=== PATIENT | female | born 1950 | race Two or more races ===

== ENCOUNTER 2017-09-08 05:08 | Inpatient (IN) | payer BC, MEDICARE ==
[2017-09-08] MEDS ORDERED: NITROGLYCERIN/D5W 50 MG/250 ML RTUINJ IV PRN ×2 (05:37→08:43)
[2017-09-08] MEDS ORDERED: ASPIRIN 81 MG TABLET, CHEWABLE PO ONE (05:39)
--- NOTE | 2017-09-08 05:41 | ER Document Report ---
Doctor's Note Notes: 09/08/17 05:39 I performed a quick triage evaluation of the patient. Patient is a 67-year-old female presents with complaint of exertional dyspnea for 2-3 weeks. She says it is worse when she is at work and move around. She says at times she does have some associated chest pain. Tonight her breathing got worse and occurred even without exertion therefore she came to the ER. She denies any chest pain at this time but says she did have some earlier tonight. No fevers. No vomiting. No diarrhea. She does have history of coronary disease and had bypass surgery in [place] last year. She is followed by Dr. Johnston locally. EKG obtained does not show any ST segment elevation or depression. There is some baseline wander. CA interval, QRS duration, QTc intervals are within normal range. Old EKG for comparison orders from December 09, 2015. On exam patient is slightly diaphoretic. She is not in any significant distress. She is not tachypneic. Her lung douglass are clear except for maybe some rales in the bases. She does not have any significant edema to extremities. Heart sound is clear without murmur. Due to patient's high blood pressure as well as some rales in the bases of started on a nitro drip. She may have some pulmonary vascular congestion and nitro should help with both that and her blood pressure. I have ordered cardiac workup including cardiac enzymes and BNP as well as chest x-ray. Patient was placed on environmental monitoring specialist. Dictation of this chart was performed using voice recognition software; therefore, there may be some unintended grammatical errors.
[2017-09-08 05:54] LABS: ABSOLUTE BASOPHILS # (AUTO) 0.1 10^3/uL (0.0-0.2); ABSOLUTE EOSINOPHILS # (AUTO) 0.5 10^3/uL (0.0-0.6); ABSOLUTE MONOCYTES (AUTO) 0.6 10^3/uL (0.1-1.4); ABSOLUTE NEUT (AUTO) 8.4 10^3/uL (1.7-8.2); EOSINOPHILS % (AUTO) 4.3 % (0-6); HEMATOCRIT 44.5 % (36.0-47.0); HEMOGLOBIN 14.2 g/dL (12.0-15.5); LYMPHOCYTES % (AUTO) 17.2 % (13-45); MEAN CORPUSCULAR HGB CONC 31.9 g/dL (32.0-36.0); MEAN CORPUSCULAR VOLUME 78 fl (80-97); MONOCYTES % (AUTO) 5.1 % (3-13); PLATELET COUNT 315 10^3/uL (150-450); RED BLOOD COUNT 5.68 10^6/uL (3.72-5.28); RED CELL DISTRIBUTION WIDTH 16.2 % (11.5-14.0); SEGMENTED NEUTROPHILS % (AUTO) 72.4 % (42-78); TOTAL CELLS COUNTED % (AUTO) 100 %; WHITE BLOOD COUNT 11.7 10^3/uL (4.0-10.5)
--- NOTE | 2017-09-08 06:08 | RADIOLOGY REPORT (SQ) ---
EXAM DESCRIPTION: CHEST SINGLE VIEW CLINICAL HISTORY: 67 years Female, difficulty breathing COMPARISON: 12/10/2015 NUMBER OF VIEWS/TECHNIQUE: 1/AP LIMITATIONS: None. FINDINGS: Mixed moderate interstitial markings and small airspace opacity of the left lower lung, mild central pulmonary edema pattern, small opacity-effusion of the right costophrenic angle, normal cardiac silhouette, atherosclerosis, median sternotomy. IMPRESSION: Mild-moderate asymmetric pulmonary edema pattern. Differential diagnosis includes multifocal pneumonia and/or chronic interstitial lung disease.
[2017-09-08 06:10] LABS: ALANINE AMINOTRANSFERASE 68 U/L (9-52); ALBUMIN 4.7 g/dL (3.5-5.0); ALKALINE PHOSPHATASE 64 U/L (38-126); ANION GAP 16 (5-19); ASPARTATE AMINO TRANSFERASE 39 U/L (14-36); BILIRUBIN,DIRECT 0.3 mg/dL (0.0-0.4); BILIRUBIN,TOTAL 0.4 mg/dL (0.2-1.3); BLOOD UREA NITROGEN 24 mg/dL (7-20); CALCIUM 9.9 mg/dL (8.4-10.2); CARBON DIOXIDE 20 mmol/L (22-30); CHLORIDE 104 mmol/L (98-107); CREATINE KINASE 57 U/L (30-135); GLUCOSE 278 mg/dL (75-110); POTASSIUM 5.1 mmol/L (3.6-5.0); SODIUM 140.3 mmol/L (137-145); TOTAL PROTEIN 7.3 g/dL (6.3-8.2)
[2017-09-08 06:22] LABS: CREATINE KINASE MB 1.8 ng/mL (<4.55)
[2017-09-08 06:24] LABS: TROPONIN I 0.046 ng/mL
[2017-09-08] MEDS ORDERED: FUROSEMIDE INJ/PF 40 MG/4 ML SDV IV ONE (06:34)
--- NOTE | 2017-09-08 06:34 | ER Document Report ---
ED General - General Mode of Arrival: Ambulatory Information source: Patient TRAVEL OUTSIDE OF THE [place] IN LAST 30 DAYS: No <HATTIE MANCINI - Last Filed: 09/08/17 07:46> <CAMERON LUNA - Last Filed: 09/08/17 16:04> - General Chief Complaint: Breathing Difficulty Stated Complaint: DIFFICULTY BREATHING Time Seen by Provider: 09/08/17 05:37 Notes: Patient is a 67 year old female with a history of HTN, CHF, Type 2 diabetes, Triple bypass surgery (2017), stents x2 and high cholesterol presents to the emergency department complaining of shortness of breath onset 3 weeks ago. Patients associated symptoms include chest pain, orthopnea, and chronic right shoulder pain which she states radiates into her back. Patient further states that her shortness of breath is exacerbated with movement. Patient denies headaches, nausea, vomiting, diarrhea, swelling, blurry vision, or numbness in the extremities. Patient currently takes Metformin 1000 mg 2x daily. (HATTIE MANCINI) - Related Data Allergies/Adverse Reactions: No Known Allergies Allergy (Unverified 11/19/15 18:36) Past Medical History - General Information source: Patient - Social History Smoking Status: Never Smoker Frequency of alcohol use: None Family History: Reviewed & Not Pertinent Patient has suicidal ideation: No Patient has homicidal ideation: No - Past Medical History Cardiac Medical History: Reports: Hx Coronary Artery Disease, Hx Hypercholesterolemia, Hx Hypertension Endocrine Medical History: Reports: Hx Diabetes Mellitus Type 2 Past Surgical History: Reports: Hx Cardiac Surgery - stents x2 (Approx 2005), Hx Hysterectomy - Immunizations Hx Diphtheria, Pertussis, Tetanus Vaccination: Yes <HATTIE MANCINI - Last Filed: 09/08/17 07:46> Review of Systems - Review of Systems Constitutional: No symptoms reported EENT: No symptoms reported Cardiovascular: No symptoms reported Respiratory: See HPI, Short of breath Gastrointestinal: No symptoms reported Genitourinary: No symptoms reported Female Genitourinary: No symptoms reported Musculoskeletal: See HPI Skin: No symptoms reported Hematologic/Lymphatic: No symptoms reported Neurological/Psychological: No symptoms reported -: Yes All other systems reviewed and negative <HATTIE MANCINI - Last Filed: 09/08/17 07:46> Physical Exam <HATTIE MANCINI - Last Filed: 09/08/17 07:46> <CAMERON LUNA - Last Filed: 09/08/17 16:04> - Vital signs Vitals: Temp Pulse Resp BP Pulse Ox 98.2 F 76 24 H 230/79 H 93 09/08/17 05:20 09/08/17 05:20 09/08/17 05:20 09/08/17 05:20 09/08/17 05:20 - Notes Notes: GENERAL: Alert, interacts well. No acute distress. HEAD: Normocephalic, atraumatic. EYES: Pupils equal, round, and reactive to light. Extraocular movements intact. ENT: Oral mucosa moist, tongue midline. NECK: Full range of motion. Supple. Trachea midline. LUNGS: Crackles [address] No wheezes, rales, or rhonchi. No respiratory distress. HEART: Regular rate and rhythm. No murmurs, gallops, or rubs. ABDOMEN: Soft, non-tender. Non-distended. Bowel sounds present in all 4 quadrants. EXTREMITIES: Moves all 4 extremities spontaneously. No edema, radial and dorsalis pedis pulses 2/4 bilaterally. No cyanosis. NEUROLOGICAL: Alert and oriented x3. Normal speech. PSYCH: Normal affect, normal mood. SKIN: Warm, dry, normal turgor. No rashes or lesions noted. (HATTIE MANCINI) Course - Laboratory Result Diagrams: 09/08/17 05:33 09/08/17 05:33 - Consults Dr. Abdullahi Time consulted: 07:46 - Accepts patient for admission, would like to see patient before. <HATTIE MANCINI - Last Filed: 09/08/17 07:46> - Laboratory Result Diagrams: 09/08/17 05:33 09/08/17 05:33 <CAMERON LUNA - Last Filed: 09/08/17 16:04> - Re-evaluation Re-evalutation: 09/08/17 07:50 Patient has been started on nitroglycerin drip, pain in her chest is resolved with nitro drip, shortness of breath is unchanged, no supplemental oxygen requirement, right shoulder pain is back to her chronic pain, no increased pain compared to baseline, CBC shows leukocytosis at 11.7 otherwise unremarkable, CMP shows slightly elevated potassium 5.1, CO2 slightly low 24, otherwise unremarkable with the exception of hyperglycemia and she is a known diabetic, glucose is 278, CK and CK-MB are unremarkable, troponin is negative though borderline at 0.046, proBNP elevated at 1050. Chest x-ray is consistent with physical examination showing pulmonary edema. EKG is nonischemic. Patient has been given aspirin and Lovenox, discussed with Dr. Abdullahi who agrees to accept the patient to his service. Initial bed request will be put in for IMCU though I am aware that the patient's bed status may be changed after Dr. Abdullahi sees this patient. Patient was also given Lasix and has urinated once. 09/08/17 07:52 (CAMERON LUNA) - Vital Signs Vital signs: Temp Pulse Resp BP Pulse Ox 97.4 F 60 19 156/59 H 100 09/08/17 11:08 09/08/17 11:40 09/08/17 11:08 09/08/17 11:08 09/08/17 11:08 - Laboratory Laboratory results interpreted by me: 09/08/17 09/08/17 09/08/17 05:33 05:33 05:33 WBC 11.7 H RBC 5.68 H MCV 78 L MCH 25.0 L MCHC 31.9 L RDW 16.2 H Absolute Neutrophils 8.4 H Potassium 5.1 H Carbon Dioxide 20 L BUN 24 H Glucose 278 H AST 39 H ALT 68 H NT-Pro-B Natriuret Pep 1050 H - EKG Interpretation by Me Additional EKG results interpreted by me: 09/08/17 07:51 EKG shows sinus rhythm at a rate of 69, normal axis, normal intervals, no ST segment elevations or depressions, there are T-wave inversions in aVL, there is some LVH, poor R-wave progression per my interpretation. (CAMERON LUNA) Discharge <HATTIE MANCINI - Last Filed: 09/08/17 07:46> - Discharge Admitting Provider: Renato Abdullahi Unit Admitted: IMCU <CAMERON LUNA - Last Filed: 09/08/17 16:04> - Discharge Clinical Impression: Chest pain, rule out acute myocardial infarction Acute congestive heart failure Qualifiers: Heart failure type: unspecified Qualified Code(s): I50.9 - Heart failure, unspecified Hypertension Qualifiers: Hypertension type: essential hypertension Qualified Code(s): I10 - Essential ( primary) hypertension Condition: Fair Disposition: ADMITTED INPATIENT Scribe Attestation: 09/08/17 16:04 I personally performed the services described in the documentation, reviewed and edited the documentation which was dictated to the scribe in my presence, and it accurately records my words and actions. (CAMERON LUNA) Scribe Documentation - Scribe Written by Scribe:: Gloria Molina, 09/08/2017 06:58 acting as scribe for :: Cb <HATTIE MANCINI - Last Filed: 09/08/17 07:46>
--- NOTE | 2017-09-08 07:16 | EKG REPORT ---
SEVERITY:- ABNORMAL ECG - SINUS RHYTHM PROBABLE LVH WITH SECONDARY REPOL ABNRM : Confirmed by: Dez Allen MD 08-Sep-2017 07:16:11
[2017-09-08] MEDS ORDERED: ENOXAPARIN SODIUM INJ 60 MG/0.6 ML DISP.SYRIN SUBCUT ONE (07:42)
[2017-09-08] MEDS ORDERED: ALBUTEROL SULFATE 0.083% NEB 2.5 MG/3 ML AMPUL NEB PRN (08:06)
[2017-09-08] MEDS ORDERED: MORPHINE SULFATE 10 MG/ML INJ IV PRN (09:00)
[2017-09-08] MEDS ORDERED: ENOXAPARIN SODIUM INJ 30 MG/0.3 ML DISP.SYRIN SUBCUT SCH (10:00)
[2017-09-08] MEDS ORDERED: METOPROLOL TARTRATE 100 MG TABLET PO SCH (10:00)
[2017-09-08] MEDS ORDERED: (PENDING PHARMACY ID) (Lisinopril [Lisinopril] 20 MG) PO SCH (10:00)
[2017-09-08] MEDS ORDERED: METOPROLOL TARTRATE 25 MG TABLET PO SCH (10:00)
[2017-09-08] MEDS ORDERED: INFLUENZA ADLT QUAD (36MOS+) 2017-18 VAC 0.5 ML SYR IM PRN (11:39)
[2017-09-08] MEDS ORDERED: GLUCAGON,HUMAN RECOMB 1 MG INJ IM PRN (11:50)
[2017-09-08] MEDS ORDERED: DEXTROSE 50%-WATER 25 GM/50 ML DISP.SYRIN IV PRN ×2 (11:50)
[2017-09-08] MEDS ORDERED: DEXTROSE 40% GEL 15 GM TUBE PO PRN ×2 (11:50)
[2017-09-08] MEDS: AMLODIPINE BESYLATE 5 MG TABLET PO SCH (11:53)
[2017-09-08] MEDS: ISOSORBIDE MONONITRATE 60 MG TAB.ER.24H PO SCH (11:53)
[2017-09-08] MEDS: ASPIRIN 81 MG TABLET, ENT COATED PO SCH (11:54)
[2017-09-08] MEDS: ENOXAPARIN SODIUM INJ 60 MG/0.6 ML DISP.SYRIN SUBCUT SCH ×2 (11:55→22:18)
[2017-09-08] MEDS: LISINOPRIL 10 MG TABLET PO SCH (13:25)
--- NOTE | 2017-09-08 15:04 | PDOC H&P ---
History of Present Illness Admission Date/PCP: 09/08/17 08:01 SHAWN NINA MD 67 yo Female with DMII, CAD s/p triple vessel bypass and 3 cardiac stents, HTN, and HLD. Patient describes an atypical right sided chest discomfort starting 3 weeks ago. Pain radiating to her back. Pain lasting minutes. Improving with blood pressure treatment here in the ED. Describes a 5/10 chest discomfort at present, described as improved since starting IV Nitro infusion. Complains of SOB, PETERSON, 3 pillow orthopnea, and some mild diaphoresis on admission. EKG without signs of ischemic change, non-elevated troponin x1. Complains of non- productive coughing. CXR showing signs of pulm edema, elevated BNP. Patient with uncontrolled BP, admitted on Nitro infusion. Recently states that she was hypertensive to 170s in her PCPs office, and her lisinopril was increased from 10 to 20mg and her metoprolol was increased from 25 to 100mg. Patient complains of: Progressive shortness of breath and chest pressure History of Present Illness: NANI OBRIEN is a 67 year old female Past Medical History Cardiac Medical History: Reports: Coronary Artery Disease, Hyperlipidema, Hypertension Endocrine Medical History: Reports: Diabetes Mellitus Type 2 Past Surgical History Past Surgical History: Reports: Cholecystectomy, Coronary Artery Bypass Graft - tripple vessel, Coronary Stent - 3 stents, Hysterectomy Social History Smoking Status: Never Smoker Cigarettes Packs Per Day: 0 Frequency of Alcohol Use: None Hx Recreational Drug Use: No Hx Prescription Drug Abuse: No - Advance Directive Resuscitation Status: Full Code Family History Family History: CVA - in grandparents Parental Family History Reviewed: Yes - strokes in both grandparents Children Family History Reviewed: NA Sibling(s) Family History Reviewed.: NA Medication/Allergy Home Medications: Aspirin [Adult Low Dose Aspirin EC] 81 mg PO DAILY 09/08/17 Lisinopril [Zestril] 20 mg PO DAILY 09/08/17 Metformin HCl [Glucophage] 1,000 mg PO BID 09/08/17 Metoprolol Succinate [Toprol XL 100 mg Tablet] 100 mg PO DAILY 09/08/17 Allergies/Adverse Reactions: No Known Allergies Allergy (Unverified 11/19/15 18:36) Review of Systems Constitutional: ABSENT: chills, fatigue, fever(s), weakness Ears: ABSENT: as per HPI, hearing changes Nose, Mouth, and Throat: ABSENT: as per HPI, mouth pain Cardiovascular: PRESENT: chest pain, dyspnea on exertion. ABSENT: edema Gastrointestinal: ABSENT: abdominal pain, coffee ground emesis, diarrhea Musculoskeletal: ABSENT: back pain, deformity, joint swelling Integumentary: ABSENT: as per HPI, erythema, rash Neurological: ABSENT: abnormal speech, confusion, convulsions Psychiatric: ABSENT: anxiety, depression Endocrine: ABSENT: cold intolerance, heat intolerance Hematologic/Lymphatic: ABSENT: easy bruising, lymphadenopathy Physical Exam Vital Signs: Temp Pulse Resp BP Pulse Ox 98.2 F 76 15 172/67 H 96 09/08/17 05:20 09/08/17 05:20 09/08/17 07:01 09/08/17 07:01 09/08/17 07:01 General appearance: PRESENT: no acute distress, cooperative. ABSENT: mild distress Head exam: PRESENT: atraumatic, normocephalic Eye exam: PRESENT: EOMI, PERRLA. ABSENT: nystagmus Ear exam: PRESENT: drainage, normal external ear exam Mouth exam: PRESENT: moist, neck supple, tongue midline Teeth exam: ABSENT: dental caries, poor dentation Neck exam: PRESENT: full ROM, JVD. ABSENT: thyromegaly Respiratory exam: PRESENT: crackles. ABSENT: chest wall tenderness, rhonchi, wheezes Cardiovascular exam: PRESENT: RRR, +S1, +S2. ABSENT: bradycardia, diastolic murmur, irregular rhythm Pulses: PRESENT: normal radial pulses, +1 pedal pulses bilateral Vascular exam: PRESENT: normal capillary refill. ABSENT: pallor GI/Abdominal exam: ABSENT: ascites, distended, guarding, mass Extremities exam: ABSENT: calf tenderness, joint swelling Musculoskeletal exam: ABSENT: ambulatory, deformity Neurological exam: PRESENT: awake, oriented to person, oriented to place, oriented to time Psychiatric exam: ABSENT: agitated, anxious, flat affect Focused psych exam: ABSENT: catatonic, pressured speech Skin exam: ABSENT: abrasion, cyanosis, erythema Results Impressions: Chest X-Ray 09/08/17 05:38 IMPRESSION: Mild-moderate asymmetric pulmonary edema pattern. Differential diagnosis includes multifocal pneumonia and/or chronic interstitial lung disease. Assessment & Plan - Diagnosis (1) Acute congestive heart failure Qualifiers: Heart failure type: unspecified Qualified Code(s): I50.9 - Heart failure, unspecified Is this a current diagnosis for this admission?: Yes Plan: Check TTE, giving Lasix 40mg IV daily, elevated BNP and pulm edema on CXR. Supplemental O2. Unsure if this new onset Acute HF, or Acute on Chronic HF. Patient denies taking diuretics prior to this admission. Will consult Cardiology for possible new diagnosis of Congestive HF. (2) Chest pain, rule out acute myocardial infarction Is this a current diagnosis for this admission?: Yes Plan: 5/10 chest discomfort. continue ASA, Beta roddy, BONNIE, prn Morphine, Nitro infusion. check serial troponins, repeat EKG. If troponins are non-elevated, and BP controled, can do stress test tomorrow. (3) Hypertension Qualifiers: Hypertension type: essential hypertension Qualified Code(s): I10 - Essential (primary) hypertension Plan: continue Metoprolol, lisinopril from home target gradual BP reduction: SBP 150 in the next 6 hours. Add Imdur 60mg, and Norvasc 5mg daily (4) Dyspnea Plan: giving lasix at present (6) Diabetes mellitus type 2 in obese Plan: Hold patient's metformin. Start her on sliding scale lispro insulin.
[2017-09-08] MEDS: INSULIN LISPRO 100 UNIT/ML 3 ML VIAL SUBCUT PRN (16:50)
--- NOTE | 2017-09-08 18:01 | XCELERA REPORT ---
[address] [address] Transthoracic Echocardiogram Report Name: NANI OBRIEN Age: 67 yrs Gender: Female : 1950 Patient Status: Inpatient Patient Location: [address] [place], [place] [id number] Study Date: 09/08/2017 02:55 PM Height: 58 in Weight: 135 lb BSA: 1.5 m2 Procedure: A complete two-dimensional transthoracic echocardiogram was performed (2D, M-mode, spectral and color flow Doppler). The study was technically difficult with many images being suboptimal in quality. Reason For Study: heart failure Ordering Physician: JG KOHLI Performed By: Marimar Crenshaw Interpretation Summary The left ventricular ejection fraction is within normal limits. There is moderate concentric left ventricular hypertrophy. Doppler measurements suggest pseudonormalized left ventricular relaxation, which is associated with grade II/IV or mild to moderate diastolic dysfunction The left ventricle is grossly normal size. Wall motion cannot be accurately commented on, but no definite regional wall motion abnormalities noted. The right ventricular systolic function is normal. The right atrium is normal in size The left atrial size is normal. There is no aortic valve stenosis No aortic regurgitation is present. There is no tricuspid stenosis. No tricuspid regurgitation. The aortic root is not well visualized. The inferior vena cava was not well visualized There is no pericardial effusion. MMode/2D Measurements & Calculations RVDd: 1.8 cm LVIDd: 2.8 cm FS: 24.6 % Ao root diam: 2.7 cm IVSd: 1.7 cm LVIDs: 2.1 cm EDV(Teich): 29.2 ml LVPWd: 1.7 cm ESV(Teich): 14.4 ml Ao root area: 5.6 cm2 EF(Teich): 50.6 % LA dimension: 2.8 cm Doppler Measurements & Calculations MV E max daria: MV P1/2t max daria: Ao V2 max: LV V1 max P.0 cm/sec 74.0 cm/sec 129.6 cm/sec 3.0 mmHg MV A max daria: MV P1/2t: 63.9 msec Ao max PG: LV V1 max: 76.5 cm/sec 6.7 mmHg 85.9 cm/sec MV E/A: 0.98 MVA(P1/2t): 3.4 cm2 MV dec slope: 339.1 cm/sec2 PA V2 max: 81.9 cm/sec PA max P.7 mmHg Left Ventricle The left ventricle is grossly normal size. There is moderate concentric left ventricular hypertrophy. The left ventricular ejection fraction is within normal limits. Doppler measurements suggest pseudonormalized left ventricular relaxation, which is associated with grade II/IV or mild to moderate diastolic dysfunction. Wall motion cannot be accurately commented on, but no definite regional wall motion abnormalities noted. Right Ventricle The right ventricle is grossly normal size. There is normal right ventricular wall thickness. The right ventricular systolic function is normal. Atria The right atrium is normal in size. The left atrial size is normal. Interarterial septum not well visualized and not well dopplered. Cannot comment on ASD/PFO presence. Mitral Valve The mitral valve is grossly normal. There is no mitral valve stenosis. There is no mitral regurgitation noted. Aortic Valve The aortic valve is grossly normal. There is no aortic valve stenosis. No aortic regurgitation is present. Tricuspid Valve The tricuspid valve is not well visualized, but is grossly normal. There is no tricuspid stenosis. No tricuspid regurgitation. Pulmonic Valve The pulmonic valve is not well visualized. Great Vessels The aortic root is not well visualized. The inferior vena cava was not well visualized. Effusions There is no pericardial effusion. : JG KOHLI > Anderson Galaviz
--- NOTE | 2017-09-08 18:53 | EKG REPORT ---
SEVERITY:- ABNORMAL ECG - SINUS RHYTHM PROBABLE LVH WITH SECONDARY REPOL ABNRM : Confirmed by: Dez Allen MD 08-Sep-2017 18:53:12
--- NOTE | 2017-09-08 20:22 | PDOC CONSULTATION ---
Consultation Consult Date: 09/08/17 Attending physician:: JG KOHLI II Consult reason:: Abnormal troponin I, severe hypertension, congestive heart failure History of Present Illness Admission Date/PCP: 09/08/17 08:01 SHAWN NINA MD Patient complains of: Shortness of breath History of Present Illness: NANI OBRIEN is a 67 year old female with DMII, CAD s/p triple vessel bypass and 3 cardiac stents, HTN, and HLD. Patient describes an atypical right sided chest discomfort starting 3 weeks ago. Pain radiating to her back. Pain lasting minutes. In the emergency room, blood pressure was noted to be extremely high over 200 mmHg systolic. Improving with blood pressure treatment here in the ED. Describes a 5/10 chest discomfort at present, described as improved since starting IV Nitro infusion. Complains of SOB, PETERSON, 3 pillow orthopnea, and some mild diaphoresis on admission. EKG without signs of ischemic change, non- elevated troponin x1. Complains of non-productive coughing. CXR showing signs of pulm edema, elevated BNP. Patient with uncontrolled BP, admitted on Nitro infusion. Recently states that she was hypertensive to 170s in her PCPs office, and her lisinopril was increased from 10 to 20mg and her metoprolol was increased from 25 to 100mg. This history was reviewed and confirmed. Patient currently chest pain-free. Her troponin I are borderline elevated. Patient claims that with her bypass surgery and also stent placement she did not have chest pain as her main symptom but only shortness of breath. Patient agreeable to pursue a stress test. Patient does get secondhand smoking exposure. Past Medical History Cardiac Medical History: Reports: Coronary Artery Disease, Hyperlipidema, Hypertension Endocrine Medical History: Reports: Diabetes Mellitus Type 2 Psychiatric Medical History: Denies: Depression Past Surgical History Past Surgical History: Reports: Cholecystectomy, Coronary Artery Bypass Graft - tripple vessel, Coronary Stent - 3 stents, Hysterectomy Social History Information Source: Patient Smoking Status: Never Smoker Cigarettes Packs Per Day: 0 Frequency of Alcohol Use: None Hx Recreational Drug Use: No Drugs: None Hx Prescription Drug Abuse: No - Advance Directive Resuscitation Status: Full Code Surrogate healthcare decision maker:: Patient's Family History Family History: CVA - in grandparents Parental Family History Reviewed: Yes Children Family History Reviewed: Yes Sibling(s) Family History Reviewed.: Yes Medication/Allergy Home Medications: Aspirin [Adult Low Dose Aspirin EC] 81 mg PO DAILY 09/08/17 Lisinopril [Zestril] 20 mg PO DAILY 09/08/17 Metformin HCl [Glucophage] 1,000 mg PO BID 09/08/17 Metoprolol Succinate [Toprol XL 100 mg Tablet] 100 mg PO DAILY 09/08/17 Allergies/Adverse Reactions: No Known Allergies Allergy (Unverified 11/19/15 18:36) Review of Systems Review of Systems: Please see history of present illness and past medical history as wall. Constitutional: No fever or chills reported. Head : No recent chronic headaches, recent head injury. Eyes: No recent eye pain, diplopia, redness, discharge, acute visual changes. Ears: No recent chronic ear pain, acute hearing loss, ear discharge. Oral cavity: No recent ulcerations, bleeding, oral cavity discomfort. Neck: No recent acute neck pain reported. Hematologic: No recent easy bruising or bleeding or hematologic malignancy reported. Lymphatic: No recent lymphatic malignancy, chronic lymphadenopathy reported yet Cardiovascular system review: See history of present illness. Respiratory system review: No recent chronic cough, hemoptysis, blood clots in the lungs reported. Mild Shortness of breath on exertion Gastrointestinal system review: Negative for any recent acute or chronic abdominal pain, hematemesis, melena, recent change in bowel habits. Genitourinary system review: No recent acute or chronic hematuria, flank pain, UTI etc. reported. Skin system review: Negative for any recent abnormal bruising, no rash, no pruritus reported. Neurologic: No prior history of strokes, mini strokes, seizure disorder. Psychologic: No history of major psychosis or major depression reported. Musculoskeletal: Minor aches and pains reported. No acute joint swelling reported. Endocrine: No recent polyuria, polydipsia, recent heat or cold intolerance. Physical Exam Vital Signs: Temp Pulse Resp BP Pulse Ox 98.5 F 79 16 155/54 H 97 09/08/17 19:42 09/08/17 19:42 09/08/17 19:42 09/08/17 19:42 09/08/17 19:42 Intake & Output 09/07/17 09/08/17 09/09/17 06:59 06:59 06:59 Intake Total 447 Balance 447 Weight 54.5 kg Exam: GENERAL: well-nourished and in no acute distress. Alert and oriented x3 HEAD: Atraumatic, normocephalic. EYES: Pupils equal round and reactive to light, extraocular movements intact, sclera anicteric, conjunctiva are normal. ENT: TMs normal, nares patent, oropharynx clear without exudates. Moist mucous membranes. No oral ulcerations or bleeding gums noted NECK: supple without lymphadenopathy. Trachea is central. No cervical or axillary lymphadenopathy noted. Carotids are 2+, JVD WNL LUNGS: Respiration seems nonlabored, no significant accessory muscle action noted. Breath sounds clear to auscultation bilaterally and equal noted. No wheezes rales or rhonchi noted. No significant dullness noted on percussion. CHEST: Palpation of the chest wall shows no significant chest wall tenderness. No other significant abnormalities noted. HEART: [place] [employer], No PSH, 1/6 BLADE aortic area, 1/6 ko systolic murmur mitral area, no rubs, no gallops. ABDOMEN: Soft, no significant tenderness appreciated, normoactive bowel sounds. No guarding, no rebound. No rigidity noted . No masses appreciated. EXTREMITIES: Pedal pulses are 1-2+, no calf tenderness noted. No clubbing or cyanosis.trace to 1+ pedal edema noted NEUROLOGICAL: Focused neurological exam showed no significant neurologic deficit. Normal speech, no focal weakness appreciated. PSYCH: Normal mood, normal affect. Judgment and insight within normal limits. SKIN: No significant ecchymosis, skin is noted to be warm. MUSCULOSKELETAL EXAM: No significant acute joint swelling noted. Results Laboratory Results: 09/08/17 09/08/17 10:10 14:26 Troponin I 0.041 0.046 EKG Comments: Sinus rhythm with minor nonspecific ST-T wave changes noted. Impressions: Chest X-Ray 09/08/17 05:38 IMPRESSION: Mild-moderate asymmetric pulmonary edema pattern. Differential diagnosis includes multifocal pneumonia and/or chronic interstitial lung disease. Assessment & Plan - Diagnosis (1) Acute congestive heart failure Qualifiers: Heart failure type: diastolic Qualified Code(s): I50.31 - Acute diastolic ( congestive) heart failure Is this a current diagnosis for this admission?: Yes (2) Chest pain, rule out acute myocardial infarction Is this a current diagnosis for this admission?: Yes (3) Diabetes mellitus type 2 in obese Is this a current diagnosis for this admission?: Yes (4) Hypertension Qualifiers: Hypertension type: essential hypertension Qualified Code(s): I10 - Essential (primary) hypertension Is this a current diagnosis for this admission?: Yes (5) Dyspnea Qualifiers: Dyspnea type: dyspnea on exertion Qualified Code(s): R06.09 - Other forms of dyspnea Is this a current diagnosis for this admission?: Yes (6) Dyslipidemia Is this a current diagnosis for this admission?: Yes (7) Tobacco smoke exposure in patient's home Is this a current diagnosis for this admission?: Yes - Notes Notes: Congestive heart failure: Most likely acute on chronic diastolic dysfunction. May have been precipitated by severe hypertension, volume overload, noncompliance with medication. At this point recommend optimizing medical therapy. Patient already feeling better. Chest pain: Patient has known history of coronary artery disease having had coronary artery bypass graft surgery about a year ago at [facility]. Will obtain these records. Patient medical management will be optimized. Patient to be scheduled for stress test tomorrow. Diabetes: Recommend good control of blood sugar. However should avoid any hypoglycemia. Preferred agent for blood pressure control with the BONNIE inhibitor or angiotensin receptor blockers. Hypertension: Patient came with severe hypertension. Patient claims she missed one day of antihypertensive medications. Patient advised compliance. Dyspnea: Related to diastolic dysfunction. Dyslipidemia: LDL goal is less than 70. Tobacco exposure: Patient's smokes. Patient advised to avoid secondhand smoking. - Time Time Spent: 30 to 50 Minutes - CODE STATUS was discussed, patient remains full code. Surrogate decision-maker patient's . Multiple medical problems were addressed. More than 50% of the time spent coordinating care, discussing management plans with involved caregivers. Management plans discussed with involved personnels. Medical decision making was of moderate to high complexity , patient's has multiple comorbidities. Medications reviewed and adjusted accordingly: Yes
[2017-09-08] MEDS: ACETAMINOPHEN 325 MG TABLET PO PRN (20:37)
[2017-09-08] MEDS ORDERED: METOPROLOL TARTRATE 50 MG TABLET PO SCH (22:00)
[2017-09-08] MEDS: RANOLAZINE 500 MG TAB.SR.12H PO SCH (22:17)
[2017-09-08] MEDS: ATORVASTATIN CALCIUM 80 MG TABLET PO SCH (22:17)
[2017-09-09 05:21] LABS: ABSOLUTE BASOPHILS # (AUTO) 0.1 10^3/uL (0.0-0.2); ABSOLUTE EOSINOPHILS # (AUTO) 0.4 10^3/uL (0.0-0.6); ABSOLUTE LYMPHOCYTES (AUTO) 1.5 10^3/uL (0.5-4.7); ABSOLUTE MONOCYTES (AUTO) 0.6 10^3/uL (0.1-1.4); ABSOLUTE NEUT (AUTO) 5.4 10^3/uL (1.7-8.2); BASOPHILS % (AUTO) 1.1 % (0-2); EOSINOPHILS % (AUTO) 5.5 % (0-6); HEMATOCRIT 38.3 % (36.0-47.0); HEMOGLOBIN 12.7 g/dL (12.0-15.5); LYMPHOCYTES % (AUTO) 18.6 % (13-45); MEAN CORPUSCULAR HEMOGLOBIN 25.5 pg (27.0-33.4); MEAN CORPUSCULAR HGB CONC 33.2 g/dL (32.0-36.0); MEAN CORPUSCULAR VOLUME 77 fl (80-97); MONOCYTES % (AUTO) 7.6 % (3-13); PLATELET COUNT 254 10^3/uL (150-450); RED BLOOD COUNT 4.98 10^6/uL (3.72-5.28); RED CELL DISTRIBUTION WIDTH 16.4 % (11.5-14.0); SEGMENTED NEUTROPHILS % (AUTO) 67.2 % (42-78); TOTAL CELLS COUNTED % (AUTO) 100 %; WHITE BLOOD COUNT 8.1 10^3/uL (4.0-10.5)
[2017-09-09 05:41] LABS: ANION GAP 10 (5-19); BLOOD UREA NITROGEN 27 mg/dL (7-20); CALCIUM 9.9 mg/dL (8.4-10.2); CARBON DIOXIDE 23 mmol/L (22-30); CHLORIDE 105 mmol/L (98-107); GLUCOSE 191 mg/dL (75-110); POTASSIUM 4.4 mmol/L (3.6-5.0); SODIUM 138.3 mmol/L (137-145); TRIGLYCERIDES 402 mg/dL (<150)
[2017-09-09 05:52] LABS: DIRECT LDL 116 mg/dL (<100)
[2017-09-09] MEDS: ASPIRIN 81 MG TABLET, ENT COATED PO SCH (08:54)
[2017-09-09] MEDS: AMLODIPINE BESYLATE 5 MG TABLET PO SCH (08:54)
[2017-09-09] MEDS: LISINOPRIL 10 MG TABLET PO SCH (08:54)
[2017-09-09] MEDS ORDERED: CLONIDINE HCL 0.1 MG TABLET ONE (09:57)
[2017-09-09] MEDS ORDERED: CARVEDILOL 6.25 MG TABLET ONE (09:58)
[2017-09-09] MEDS ORDERED: CARVEDILOL 12.5 MG TABLET PO ONE (11:00)
[2017-09-09] MEDS: ISOSORBIDE MONONITRATE 60 MG TAB.ER.24H PO SCH (11:11)
[2017-09-09] MEDS: RANOLAZINE 500 MG TAB.SR.12H PO SCH ×2 (11:12→22:39)
[2017-09-09] MEDS: ENOXAPARIN SODIUM INJ 60 MG/0.6 ML DISP.SYRIN SUBCUT SCH ×2 (11:13→22:40)
[2017-09-09] MEDS: FUROSEMIDE INJ/PF 40 MG/4 ML SDV IV SCH (11:15)
[2017-09-09] MEDS ORDERED: DILTIAZEM HCL INJ 25 MG/5 ML VIAL ONE (13:57)
[2017-09-09] MEDS ORDERED: DILTIAZEM HCL/D5W 125 MG/125 ML RTUINJ IV PRN (13:57)
[2017-09-09] MEDS ORDERED: DILTIAZEM HCL INJ 25 MG/5 ML VIAL IV ONE (14:00)
--- NOTE | 2017-09-09 14:30 | DRAGON STRESS TEST REPORT ---
INTRAVENOUS LEXISCAN CARDIOLITE STRESS TEST USING SINGLE PHOTON EMMISION COMPUTERIZED TOMOGRAPHIC. DATE OF PROCEDURE: September 09, 2017, INDICATION : Chest pain CARDIAC RISK FACTORS: Diabetes, hypertension, dyslipidemia, known history of CAD with prior CABG RESTING EKG: Sinus rhythm, minor nonspecific ST-T wave changes noted at baseline. STRESS EKG: No significant ST segment changes noted with LexiScan bolus REASON FOR TERMINATION: Protocol. PROCEDURE REPORT: Baseline heart rate 76 beats per minute with blood pressure of 187/69. Patient had no significant complaints. Patient was bolused with Lexiscan 0.4 mg intravenously followed by saline bolus. Heart rate at 2 minutes post bolus 86 with a blood pressure of 182/73. 3 minutes post bolus heart rate 83 with blood pressure of 189/73. No significant EKG changes were noted. Patient had no significant complaints during the procedure or postprocedure. Patient injected with Aminophyllin 75 mg at 3 minutes or later after Lexiscan bolus. CONCLUSIONS: Normal EKG and hemodynamic response to IV LexiScan. NUCLEAR DATA: At rest the patient was given 10.92 millicuries of technetium 99 sestamibi injected intravenously. As per protocol rest gated SPECT images were obtained. On day of stress test, the patient was given intravenous LexiScan at a dose of 0.4 mg in 5 mL intravenously, followed by flush with normal saline. Subsequently the stress dose of 31.3 millicuries of technetium 99 sestamibi was injected intravenously. As per protocol stress gated images were obtained. NUCLEAR INTERPRETATION: Both raw and processed data were used for interpretation. Visual, qualitative, computer-generated quantitative data was used. There was good myocardial uptake of technetium compound. Motion artifact and soft tissue attenuations were noted. Increased visceral uptake was noted. Mild decreased perfusion noted in the inferolateral wall in the stress imaging with a smaller area of decreased perfusion in fixed imagings suggestive of inferolateral wall ischemia with a smaller underlying fixed defect noted. Overall area involved is small. EKG gated imaging showed LV EF at 47 %, rest and stress gated EF similar visually. Mild inferolateral hypokinesia noted. T I D. ratio was 1.27. Lung heart ratio noted to be within normal limits 0.41. No significant extracardiac and abnormal radiotracer activities were noted. RV free wall uptake was noted to be WNL. IMPRESSION: Also refer to comments under nuclear interpretation. Also test results needs to be interpreted in the context of pretest probability. 1. Mild ischemia noted inferolateral wall of the left ventricle.. 2. Smaller fixed defect suggestive of a scar noted in the inferolateral wall of the left ventricle 3. EKG gated imaging shows left ventricular ejection fraction of approx. 47 %. Mild inferolateral hypokinesia noted. 4. Clinical correlation requested as occasionally single vessel disease or balanced ischemia could be missed. In approximately 10% of the cases Lexiscan may not cause adequate vasodilatory stress. RECOMMENDATIONS: Aggressive risk factor modification and medical management. Further evaluation may be needed if continued symptoms or other high risk indicators are noted on clinical evaluation. May consider heart catheterization if medical management fails and patient continues with significant symptoms. Close cardiology follow-up is also recommended. Clinical correlation with echocardiogram derived ejection fraction. Inability to exercise by itself can lead to increased cardiovascular event risks. Consider cardiology consultation and or follow-up if clinically indicated. I am available for cardiology evaluation and consultation if requested by the package clerk, unless patient already has a production grip. BILLY
[2017-09-09] MEDS: DILTIAZEM HCL 30 MG TABLET PO SCH ×2 (15:11→22:40)
[2017-09-09] MEDS ORDERED: AMINOPHYLLINE INJ/PF 250 MG/10 ML SDV IV ONE (15:53)
[2017-09-09] MEDS ORDERED: REGADENOSON INJ 0.4 MG/5 ML DISP.SYRIN IV ONE (15:53)
[2017-09-09] MEDS ORDERED: APIXABAN 2.5 MG TABLET PO SCH (18:00)
[2017-09-09] MEDS: ONDANSETRON HCL INJ/PF 4 MG/2 ML SDV IV PRN (18:06)
[2017-09-09] MEDS ORDERED: DRONEDARONE HYDROCHLORIDE 400 MG TABLET PO ONE (19:00)
[2017-09-09] MEDS ORDERED: LEVALBUTEROL HCL NEB 0.63 MG/3 ML AMPUL NEB PRN (19:47)
--- NOTE | 2017-09-09 20:05 | PDOC PROGRESS REPORT ---
Subjective Progress Note for:: 09/09/17 Subjective:: 67 yo Female with DMII, CAD s/p triple vessel bypass and 3 cardiac stents, HTN, and HLD. Patient describes an atypical right sided chest discomfort starting 3 weeks ago. No significant elevation on serial troponins. TTE showed Diastolic HF with a preserved EF. Stress test was interpreted as appropriate for medical management per Cardiology. Unfortunately after patient's stress test she promptly went into New onset Afib with RVR. This was likely part of fluid overload etiology, along with her diastolic dysfunction. She was placed on IV Diltiazem infusion. Currently giving her PO diltiazem, and attempting to wean off the IV infusion. Reason For Visit: ACUTE HEART FAILURE Physical Exam Vital Signs: Temp Pulse Resp BP Pulse Ox 98.1 F 89 18 114/64 97 09/09/17 16:27 09/09/17 16:27 09/09/17 16:27 09/09/17 16:27 09/09/17 16:27 Intake & Output 09/08/17 09/09/17 09/10/17 06:59 06:59 06:59 Intake Total 867 365 Balance 867 365 Weight 55.2 kg General appearance: PRESENT: mild distress, obese Head exam: PRESENT: atraumatic, normocephalic Eye exam: PRESENT: EOMI, PERRLA Ear exam: PRESENT: normal external ear exam Mouth exam: PRESENT: moist, neck supple, tongue midline Neck exam: PRESENT: tenderness. ABSENT: thyromegaly Respiratory exam: PRESENT: rales. ABSENT: accessory muscle use, chest wall tenderness, rhonchi, wheezes Cardiovascular exam: PRESENT: irregular rhythm, tachycardia. ABSENT: bradycardia, diastolic murmur, systolic murmur Pulses: PRESENT: normal radial pulses, normal dorsalis pedis pul Vascular exam: PRESENT: normal capillary refill. ABSENT: pallor GI/Abdominal exam: ABSENT: diminished bowel sounds, distended, firm, mass, Cortes's sign Extremities exam: ABSENT: calf tenderness, joint swelling Musculoskeletal exam: PRESENT: deformity, full ROM Neurological exam: PRESENT: alert, oriented to person, oriented to place, oriented to time, CN II-XII grossly intact Psychiatric exam: ABSENT: agitated, anxious, manic Focused psych exam: ABSENT: catatonic, internal stimuli Skin exam: ABSENT: abrasion, cyanosis, dry Results Laboratory Results: 09/09/17 04:51 09/09/17 04:51 09/09/17 09/09/17 04:51 04:51 WBC 8.1 RBC 4.98 Hgb 12.7 Hct 38.3 MCV 77 L MCH 25.5 L MCHC 33.2 RDW 16.4 H Plt Count 254 Seg Neutrophils % 67.2 Lymphocytes % 18.6 Monocytes % 7.6 Eosinophils % 5.5 Basophils % 1.1 Absolute Neutrophils 5.4 Absolute Lymphocytes 1.5 Absolute Monocytes 0.6 Absolute Eosinophils 0.4 Absolute Basophils 0.1 Sodium 138.3 Potassium 4.4 Chloride 105 Carbon Dioxide 23 Anion Gap 10 BUN 27 H Creatinine 0.76 Est GFR ( Amer) > 60 Est GFR (Non-Af Amer) > 60 Glucose 191 H Calcium 9.9 Triglycerides 402 H Cholesterol 190.40 LDL Cholesterol Direct 116 H VLDL Cholesterol UNABLE TO CALCULATE HDL Cholesterol 32 L 09/08/17 09/08/17 09/08/17 10:10 14:26 20:30 Troponin I 0.041 0.046 0.035 Impressions: Chest X-Ray 09/08/17 05:38 IMPRESSION: Mild-moderate asymmetric pulmonary edema pattern. Differential diagnosis includes multifocal pneumonia and/or chronic interstitial lung disease. Assessment & Plan - Diagnosis (1) Atrial fibrillation with rapid ventricular response Plan: started on IV Diltiazem. start PO diltiazem 30mg q6h. in concert with coreg 25mg BID (2) Acute congestive heart failure Qualifiers: Heart failure type: diastolic Qualified Code(s): I50.31 - Acute diastolic ( congestive) heart failure Is this a current diagnosis for this admission?: Yes Plan: TTE showing Acute Diastolic HF continue IV lasix therapy. change beta roddy to coreg per cardiology due to HTN during stress test. (3) Chest pain, rule out acute myocardial infarction Is this a current diagnosis for this admission?: Yes Plan: likely discomfort related to Afib w/ RVR, and pulmonary edema stress test was without significant findings, Cardiology recommends medical management (4) Hypertension Qualifiers: Hypertension type: essential hypertension Qualified Code(s): I10 - Essential (primary) hypertension Is this a current diagnosis for this admission?: Yes Plan: Continue current medications. (5) Dyspnea Qualifiers: Dyspnea type: dyspnea on exertion Qualified Code(s): R06.09 - Other forms of dyspnea Is this a current diagnosis for this admission?: Yes Plan: improving on lasix therapy (6) Pleural effusion, left Plan: treating with lasix (7) Diabetes mellitus type 2 in obese Is this a current diagnosis for this admission?: Yes Plan: continue Sliding scale insulin
--- NOTE | 2017-09-09 20:52 | EKG REPORT ---
SEVERITY:- ABNORMAL ECG - ATRIAL FLUTTER/FIBRILLATION, A-RATE 306 PROBABLE LVH WITH SECONDARY REPOL ABNRM PROLONGED QT INTERVAL : Confirmed by: Dez Allen MD 09-Sep-2017 20:51:51
--- NOTE | 2017-09-09 21:07 | PDOC PROGRESS REPORT ---
Subjective Progress Note for:: 09/09/17 Subjective:: Patient seems to be doing better with gradual improvement. Pt is denying any chest arm or neck discomfort. Patient denying any PND, orthopnea. Patient denied any sustained palpitations, dizziness, syncope, near syncope. Patient denying any fever chills. Patient denying any other significant discomfort. Patient's blood pressure was noted to be elevated and medications were changed. Patient did undergo a nuclear stress test which did not show any ischemia. However in the afternoon I was told by the nurse that patient had gone into atrial fibrillation with rapid ventricular response. Orders were given to the nurse to administer Cardizem 15 mg intravenously followed by 10 mg/h drip. Subsequently patient was switched over to p.o. Cardizem. Later on I added multaq 400 mg p.o. twice daily to the regimen to try to convert patient to sinus rhythm. Patient currently on Lovenox but would recommend switch to Eliquis at 5 mg p.o. twice daily tomorrow. Patient is maintaining sinus rhythm. However later in the afternoon patient was noted to go into atrial fibrillation with rapid ventricular response. Review of systems: Rest review of systems negative. Medications: Medications have been reviewed. Reason For Visit: ACUTE HEART FAILURE Physical Exam Vital Signs: Temp Pulse Resp BP Pulse Ox 98.1 F 89 18 114/64 97 09/09/17 16:27 09/09/17 16:27 09/09/17 16:27 09/09/17 16:27 09/09/17 16:27 Intake & Output 09/08/17 09/09/17 09/10/17 06:59 06:59 06:59 Intake Total 867 365 Balance 867 365 Weight 55.2 kg Exam: GENERAL: well-nourished and in no acute distress. Alert and oriented x3 HEAD: Atraumatic, normocephalic. EYES: Pupils equal round and reactive to light, extraocular movements intact, sclera anicteric, conjunctiva are normal. ENT: TMs normal, nares patent, oropharynx clear without exudates. Moist mucous membranes. No oral ulcerations or bleeding gums noted NECK: supple without lymphadenopathy. Trachea is central. No cervical or axillary lymphadenopathy noted. Carotids are 2+, JVD WNL LUNGS: Respiration seems nonlabored, no significant accessory muscle action noted. Breath sounds clear to auscultation bilaterally and equal noted. No wheezes rales or rhonchi noted. No significant dullness noted on percussion. CHEST: Palpation of the chest wall shows no significant chest wall tenderness. No other significant abnormalities noted. 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 ABDOMEN: Soft, no significant tenderness appreciated, normoactive bowel sounds. No guarding, no rebound. No rigidity noted . No masses appreciated. EXTREMITIES: Pedal pulses are 1-2+, no calf tenderness noted. No clubbing or cyanosis.trace to 1+ pedal edema noted NEUROLOGICAL: Focused neurological exam showed no significant neurologic deficit. Normal speech, no focal weakness appreciated. PSYCH: Normal mood, normal affect. Judgment and insight within normal limits. SKIN: No significant ecchymosis, skin is noted to be warm. MUSCULOSKELETAL EXAM: No significant acute joint swelling noted. Results Laboratory Results: 09/09/17 04:51 09/09/17 04:51 09/09/17 09/09/17 04:51 04:51 WBC 8.1 RBC 4.98 Hgb 12.7 Hct 38.3 MCV 77 L MCH 25.5 L MCHC 33.2 RDW 16.4 H Plt Count 254 Seg Neutrophils % 67.2 Lymphocytes % 18.6 Monocytes % 7.6 Eosinophils % 5.5 Basophils % 1.1 Absolute Neutrophils 5.4 Absolute Lymphocytes 1.5 Absolute Monocytes 0.6 Absolute Eosinophils 0.4 Absolute Basophils 0.1 Sodium 138.3 Potassium 4.4 Chloride 105 Carbon Dioxide 23 Anion Gap 10 BUN 27 H Creatinine 0.76 Est GFR ( Amer) > 60 Est GFR (Non-Af Amer) > 60 Glucose 191 H Calcium 9.9 Triglycerides 402 H Cholesterol 190.40 LDL Cholesterol Direct 116 H VLDL Cholesterol UNABLE TO CALCULATE HDL Cholesterol 32 L 09/08/17 09/08/17 09/08/17 10:10 14:26 20:30 Troponin I 0.041 0.046 0.035 Impressions: Chest X-Ray 09/08/17 05:38 IMPRESSION: Mild-moderate asymmetric pulmonary edema pattern. Differential diagnosis includes multifocal pneumonia and/or chronic interstitial lung disease. Assessment & Plan - Diagnosis (1) Acute congestive heart failure Qualifiers: Heart failure type: diastolic Qualified Code(s): I50.31 - Acute diastolic ( congestive) heart failure Is this a current diagnosis for this admission?: Yes (2) Chest pain, rule out acute myocardial infarction Is this a current diagnosis for this admission?: Yes (3) Diabetes mellitus type 2 in obese Is this a current diagnosis for this admission?: Yes (4) Hypertension Qualifiers: Hypertension type: essential hypertension Qualified Code(s): I10 - Essential (primary) hypertension Is this a current diagnosis for this admission?: Yes (5) Dyspnea Qualifiers: Dyspnea type: dyspnea on exertion Qualified Code(s): R06.09 - Other forms of dyspnea Is this a current diagnosis for this admission?: Yes (6) Dyslipidemia Is this a current diagnosis for this admission?: Yes (7) Tobacco smoke exposure in patient's home Is this a current diagnosis for this admission?: Yes - Notes Notes: Atrial fibrillation: Unspecified atrial fibrillation with rapid ventricular response. Orders were given to the nurse to administer Cardizem 15 mg intravenously followed by 10 mg/h drip. Subsequently patient was switched over to p.o. Cardizem. Later on I added multaq 400 mg p.o. twice daily to the regimen to try to convert patient to sinus rhythm. Patient currently on Lovenox but would recommend switch to Eliquis at 5 mg p.o. twice daily tomorrow. Congestive heart failure: Most likely acute on chronic diastolic dysfunction. May have been precipitated by severe hypertension, volume overload, noncompliance with medication. At this point recommend optimizing medical therapy. Continue current management plans.. Chest pain: Patient has known history of coronary artery disease having had coronary artery bypass graft surgery about a year ago at [facility]. Will obtain these records. Patient medical management will be optimized. Stress test negative for significant ischemia. Medical management is being recommended at this point. Did place patient on Ranexa last night. Diabetes: Recommend good control of blood sugar. However should avoid any hypoglycemia. Preferred agent for blood pressure control with the BONNIE inhibitor or angiotensin receptor blockers. Hypertension: Patient came with severe hypertension. Patient claims she missed one day of antihypertensive medications. Patient advised compliance. Dyspnea: Related to diastolic dysfunction. Dyslipidemia: LDL goal is less than 70. Tobacco exposure: Patient's smokes. Patient advised to avoid secondhand smoking. - Time Time with patient: Greater than 35 minutes - CODE STATUS was discussed, patient remains full code. Surrogate decision-maker unchanged. Multiple medical problems were addressed. More than 50% of the time spent coordinating care, discussing management plans with involved caregivers. Management plans discussed with involved personnels. Medical decision making was of moderate to high complexity, patient's has multiple comorbidities. Medications reviewed and adjusted accordingly: Yes
[2017-09-09] MEDS: CARVEDILOL 12.5 MG TABLET PO SCH (22:40)
[2017-09-09] MEDS: ATORVASTATIN CALCIUM 80 MG TABLET PO SCH (22:40)
[2017-09-10] MEDS: DILTIAZEM HCL 30 MG TABLET PO SCH ×4 (02:59→23:54)
[2017-09-10 05:24] LABS: HEMATOCRIT 38.4 % (36.0-47.0); HEMOGLOBIN 12.4 g/dL (12.0-15.5); MEAN CORPUSCULAR HEMOGLOBIN 24.9 pg (27.0-33.4); MEAN CORPUSCULAR HGB CONC 32.3 g/dL (32.0-36.0); MEAN CORPUSCULAR VOLUME 77 fl (80-97); PLATELET COUNT 280 10^3/uL (150-450); RED BLOOD COUNT 4.98 10^6/uL (3.72-5.28); RED CELL DISTRIBUTION WIDTH 16.2 % (11.5-14.0); WHITE BLOOD COUNT 7.1 10^3/uL (4.0-10.5)
[2017-09-10 05:48] LABS: ALBUMIN 4.1 g/dL (3.5-5.0); ANION GAP 13 (5-19); BLOOD UREA NITROGEN 33 mg/dL (7-20); CARBON DIOXIDE 26 mmol/L (22-30); CHLORIDE 100 mmol/L (98-107); GLUCOSE 210 mg/dL (75-110); PHOSPHORUS 6.4 mg/dL (2.5-4.5); POTASSIUM 4.5 mmol/L (3.6-5.0); SODIUM 138.8 mmol/L (137-145)
--- NOTE | 2017-09-10 09:46 | EKG REPORT ---
SEVERITY:- ABNORMAL ECG - SINUS RHYTHM PROBABLE LVH WITH SECONDARY REPOL ABNRM : Confirmed by: Dez Allen MD 10-Sep-2017 09:46:05
[2017-09-10] MEDS: ONDANSETRON HCL INJ/PF 4 MG/2 ML SDV IV PRN (10:10)
[2017-09-10] MEDS: CARVEDILOL 12.5 MG TABLET PO SCH ×2 (10:45→23:48)
--- NOTE | 2017-09-10 11:04 | PROGRESS NOTE E ---
Progress Note NAME: NANI OBRIEN : 1950 AGE: 67Y DATE: 09/09/2017 ROOM: 309 SUBJECTIVE: The patient is a 67-year-old female who has a past medical history of congestive heart failure admitted with chest pain to rule out CA. She had a stress test and now she developed new onset atrial fibrillation. The patient is started on Cardizem and she is already on Coreg. Her heart rate dropped today to 49 to low 50s. Cardizem morning dose was held. Coreg dose was decreased to 12.5 twice a day from 25 mg twice a day. She had nausea and vomiting this morning. OBJECTIVE: GENERAL: The patient is lying in bed, not in distress. VITALS SIGNS: Temperature 97.4, heart rate 57, blood pressure 159/60, saturation 99% on room air. HEENT: Normocephalic, atraumatic. Pupils round and reactive to light and accommodation bilaterally. Extraocular movements intact. Ears: Tympanic membranes intact bilaterally. No discharge from the ears. No discharge from the nose. NECK: Supple. No increased JVD. No thyromegaly. No lymphadenopathy. CARDIOVASCULAR: Normal S1, S2. Regular rate and rhythm. No murmur. No gallop. RESPIRATORY: Lungs are clear. ABDOMEN: Soft and nontender. MUSCULOSKELETAL: No edema. NEUROLOGIC: Awake, alert. SKIN: No rash. LABORATORY: Sodium 138, potassium 4.5, creatinine 1.1. White blood count 7.1, hemoglobin 12.4. ASSESSMENT: 1. CHEST PAIN, RULE OUT CA. Patient had stress test and recommended aggressive medical management. Seen by Cardiology. 2. NEW ONSET ATRIAL FIBRILLATION CONVERTED TO NORMAL SINUS RHYTHM, NOW IS BRADYCARDIAC. She is on diltiazem 30 mg p.o. q.6 hours, Coreg 25 mg twice a day, Multaq 400 mg q.12, Lasix, and lisinopril. 3. CONGESTIVE HEART FAILURE. She is on Lasix, lisinopril, and Coreg. 4. DIABETES MELLITUS TYPE 2 POORLY CONTROLLED. PLAN: We will adjust her medication today. The patient is converted to normal sinus rhythm and now bradycardiac. We will decrease her Coreg from 25 twice a day to 12.5 twice a day. We will hold Cardizem morning dose. Lab tomorrow morning. Monitor her heart rate. MEDICAL NECESSITY: The patient needs to stay. She had nausea and vomiting this morning. Her medications need to be adjusted. DICTATING PHYSICIAN: ELLI BLACKWOOD M.D. [id number] MARCIANO#: [id number] ID: [id number] JOB#: [id number] ACCT: [id number] cc: >
[2017-09-10] MEDS ORDERED: CARVEDILOL 12.5 MG TABLET PO ONE (11:40)
[2017-09-10] MEDS: FUROSEMIDE INJ/PF 40 MG/4 ML SDV IV SCH (11:42)
[2017-09-10] MEDS: LISINOPRIL 10 MG TABLET PO SCH (11:43)
[2017-09-10] MEDS: ASPIRIN 81 MG TABLET, ENT COATED PO SCH (11:43)
[2017-09-10] MEDS: DRONEDARONE HYDROCHLORIDE 400 MG TABLET PO SCH ×2 (11:44→23:47)
[2017-09-10] MEDS: RANOLAZINE 500 MG TAB.SR.12H PO SCH ×2 (11:44→23:51)
[2017-09-10] MEDS: ISOSORBIDE MONONITRATE 60 MG TAB.ER.24H PO SCH (11:46)
[2017-09-10] MEDS: ENOXAPARIN SODIUM INJ 60 MG/0.6 ML DISP.SYRIN SUBCUT SCH ×2 (11:46→23:48)
[2017-09-10] MEDS: INSULIN LISPRO 100 UNIT/ML 3 ML VIAL SUBCUT PRN ×2 (11:48→23:49)
[2017-09-10] MEDS: PROMETHAZINE HCL INJ 25 MG/1 ML VIAL IV PRN (13:34)
[2017-09-10] MEDS ORDERED: HYDRALAZINE HCL INJ/PF 20 MG/1 ML SDV IV PRN (14:18)
[2017-09-10] MEDS: ATORVASTATIN CALCIUM 80 MG TABLET PO SCH (23:48)
[2017-09-11] MEDS: PROMETHAZINE HCL INJ 25 MG/1 ML VIAL IV PRN (00:04)
[2017-09-11] MEDS: DILTIAZEM HCL 30 MG TABLET PO SCH ×4 (04:48→22:32)
[2017-09-11 05:56] LABS: ABSOLUTE BASOPHILS # (AUTO) 0.1 10^3/uL (0.0-0.2); ABSOLUTE EOSINOPHILS # (AUTO) 0.2 10^3/uL (0.0-0.6); ABSOLUTE LYMPHOCYTES (AUTO) 1.9 10^3/uL (0.5-4.7); ABSOLUTE MONOCYTES (AUTO) 0.7 10^3/uL (0.1-1.4); ABSOLUTE NEUT (AUTO) 4.5 10^3/uL (1.7-8.2); BASOPHILS % (AUTO) 1.1 % (0-2); EOSINOPHILS % (AUTO) 3.2 % (0-6); HEMATOCRIT 38.5 % (36.0-47.0); HEMOGLOBIN 12.5 g/dL (12.0-15.5); LYMPHOCYTES % (AUTO) 25.7 % (13-45); MEAN CORPUSCULAR HEMOGLOBIN 25.1 pg (27.0-33.4); MEAN CORPUSCULAR HGB CONC 32.6 g/dL (32.0-36.0); MEAN CORPUSCULAR VOLUME 77 fl (80-97); MONOCYTES % (AUTO) 8.8 % (3-13); PLATELET COUNT 289 10^3/uL (150-450); RED CELL DISTRIBUTION WIDTH 16.3 % (11.5-14.0); SEGMENTED NEUTROPHILS % (AUTO) 61.2 % (42-78); TOTAL CELLS COUNTED % (AUTO) 100 %; WHITE BLOOD COUNT 7.4 10^3/uL (4.0-10.5)
[2017-09-11 06:27] LABS: ALBUMIN 4.2 g/dL (3.5-5.0); ANION GAP 16 (5-19); BLOOD UREA NITROGEN 41 mg/dL (7-20); CALCIUM 9.7 mg/dL (8.4-10.2); CARBON DIOXIDE 24 mmol/L (22-30); CHLORIDE 99 mmol/L (98-107); GLUCOSE 182 mg/dL (75-110); PHOSPHORUS 5.4 mg/dL (2.5-4.5); POTASSIUM 4.2 mmol/L (3.6-5.0); SODIUM 139.3 mmol/L (137-145)
[2017-09-11] MEDS: ASPIRIN 81 MG TABLET, ENT COATED PO SCH (08:17)
[2017-09-11] MEDS: CARVEDILOL 12.5 MG TABLET PO SCH (08:18)
[2017-09-11] MEDS: LISINOPRIL 10 MG TABLET PO SCH (08:18)
[2017-09-11] MEDS: ACETAMINOPHEN 325 MG TABLET PO PRN (08:19)
[2017-09-11] MEDS: DRONEDARONE HYDROCHLORIDE 400 MG TABLET PO SCH ×2 (08:19→22:33)
[2017-09-11] MEDS: ISOSORBIDE MONONITRATE 60 MG TAB.ER.24H PO SCH (10:27)
[2017-09-11] MEDS: ENOXAPARIN SODIUM INJ 60 MG/0.6 ML DISP.SYRIN SUBCUT SCH (10:27)
[2017-09-11] MEDS: FUROSEMIDE INJ/PF 40 MG/4 ML SDV IV SCH (10:27)
[2017-09-11] MEDS: RANOLAZINE 500 MG TAB.SR.12H PO SCH (10:27)
[2017-09-11] MEDS ORDERED: CARVEDILOL 12.5 MG TABLET PO SCH (11:27)
[2017-09-11] MEDS ORDERED: NITROGLYCERIN 0.4 MG/TAB 25 TAB/BOTTLE SL PRN (11:28)
[2017-09-11] MEDS ORDERED: APIXABAN 5 MG TABLET PO ONE (12:00)
[2017-09-11] MEDS ORDERED: ISOSORBIDE MONONITRATE 30 MG TAB.ER.24H PO ONE (12:00)
[2017-09-11] MEDS ORDERED: FUROSEMIDE 20 MG TABLET PO ONE (12:00)
[2017-09-11] MEDS: INSULIN LISPRO 100 UNIT/ML 3 ML VIAL SUBCUT PRN (12:19)
[2017-09-11] MEDS ORDERED: LISINOPRIL 10 MG TABLET PO ONE (12:30)
--- NOTE | 2017-09-11 12:34 | PROGRESS NOTE E ---
Progress Note NAME: NANI OBRIEN : 1950 AGE: 67Y DATE: 09/11/2017 ROOM: 309 SUBJECTIVE: The patient is a 67-year-old female who had a past medical history of congestive heart failure, admitted with chest pain to rule out. She had a stress test yesterday. During the stress test, she developed new-onset atrial fibrillation. She was started on a Cardizem drip as well as Eliquis. Now, she is on Cardizem 30 mg every 6 hours as well as Coreg; she is supposed to take 12.5 mg twice a day. The patient's heart rate is running 45-55 and we adjusted her medication. I decreased her Coreg too. Now, she is taking 6.25 mg twice a day, and Cardizem 30 mg p.o. q. 6 hours, today, also it was held due to heart rate in the 50's and a relatively low blood pressure. Her nausea and vomiting resolved. OBJECTIVE: GENERAL: The patient is lying in bed, comfortable, not in distress. VITAL SIGNS: Heart rate is 51, temperature 98, blood pressure 118/45, respiratory rate is 20. HEENT: Normocephalic, atraumatic. Pupils are round and reactive to light and accommodation bilaterally. Extraocular movements intact. Ears: Tympanic membranes intact bilaterally. No discharge from the ears. No discharge from the nose. NECK: Supple. No increased JVD. No thyromegaly. No lymphadenopathy. CARDIOVASCULAR: Normal S1 and S2. Regular rate and rhythm. No murmur. No gallop. RESPIRATORY: Very few crackles. ABDOMEN: Soft and nontender. MUSCULOSKELETAL: No edema. NEUROLOGIC: Awake, alert. SKIN: No rash. DIAGNOSTIC DATA: Sodium is 139, potassium is 4.2, creatinine 1.3. White blood count 7.4, hemoglobin is 12. ASSESSMENT: 1. CHEST PAIN, RULE OUT TN. HER STRESS TEST WAS NEGATIVE. Recommended aggressive medical management by Cardiology. Now, she is on Coreg, statin, Lovenox, and Cardizem. 2. CONGESTIVE HEART FAILURE, CARDIOMYOPATHY. She is on Lisinopril, Coreg, as well as a statin. 3. DIABETES MELLITUS, POORLY CONTROLLED. 4. NAUSEA AND VOMITING. PLAN: We will decrease her Coreg to 6.125 mg twice a day. Continue Cardizem 30 mg p.o. daily and tomorrow, we start her on Cardizem CD 120 mg daily. Continue Lovenox and we will start her on Eliquis 5 mg twice a day. We will discontinue Lovenox. Decrease Lisinopril to 10 mg daily. Continue sliding scale. We will resume her metformin. She is taking metformin 1 gram twice a day. At home, she was on Toprol XL 100 mg, which has been discontinued. Now, she is on Coreg as well as Cardizem. DISPOSITION: Probably home tomorrow morning. DICTATING PHYSICIAN: ELLI BLACKWOOD M.D. [id number] PHY#: [id number] ID: [id number] JOB#: [id number] ACCT: [id number] cc: >
[2017-09-11] MEDS: METFORMIN HCL 500 MG TABLET PO SCH (16:56)
[2017-09-11] MEDS: CARVEDILOL 6.25 MG TABLET PO SCH (22:33)
[2017-09-11] MEDS: APIXABAN 5 MG TABLET PO SCH (22:33)
[2017-09-11] MEDS: ATORVASTATIN CALCIUM 80 MG TABLET PO SCH (22:33)
[2017-09-12] MEDS: ACETAMINOPHEN 325 MG TABLET PO PRN (08:55)
[2017-09-12] MEDS: METFORMIN HCL 500 MG TABLET PO SCH (08:55)
[2017-09-12] MEDS: INSULIN LISPRO 100 UNIT/ML 3 ML VIAL SUBCUT PRN ×2 (08:58→13:29)
[2017-09-12] MEDS: APIXABAN 5 MG TABLET PO SCH (09:05)
[2017-09-12] MEDS: CARVEDILOL 6.25 MG TABLET PO SCH (09:06)
[2017-09-12] MEDS: ASPIRIN 81 MG TABLET, ENT COATED PO SCH (09:06)
[2017-09-12] MEDS: DRONEDARONE HYDROCHLORIDE 400 MG TABLET PO SCH (09:07)
[2017-09-12] MEDS ORDERED: FUROSEMIDE 20 MG TABLET PO SCH ×2 (10:00)
[2017-09-12] MEDS ORDERED: ISOSORBIDE MONONITRATE 30 MG TAB.ER.24H PO SCH (10:00)
[2017-09-12] MEDS ORDERED: LISINOPRIL 10 MG TABLET PO SCH (10:00)
[2017-09-12] MEDS ORDERED: DILTIAZEM HCL 120 MG CAP.SR.24H PO SCH (10:00)
--- NOTE | 2017-09-12 10:02 | EKG REPORT ---
SEVERITY:- BORDERLINE ECG - SINUS RHYTHM BORDERLINE T ABNORMALITIES, LATERAL LEADS : Confirmed by: Anderson Galaviz 12-Sep-2017 10:01:20
--- NOTE | 2017-09-12 10:31 | PDOC PROGRESS REPORT ---
Subjective Progress Note for:: 09/12/17 Subjective:: Patient has converted to sinus rhythm. Her blood pressure is more stable. Patient has been encouraged to ambulate. Patient is stable for possible discharge from cardiac standpoint, if everything else is okay Patient seems to be doing better with gradual improvement. Pt is denying any chest arm or neck discomfort. Patient denying any PND, orthopnea. Patient denied any sustained palpitations, dizziness, syncope, near syncope. Patient denying any fever chills. Patient denying any other significant discomfort. Patient's blood pressure was noted to be elevated and medications were changed. Patient is maintaining sinus rhythm. QTC WNL. Review of systems: Rest review of systems negative. Medications: Medications have been reviewed. Reason For Visit: ACUTE HEART FAILURE Physical Exam Vital Signs: Temp Pulse Resp BP Pulse Ox 97.7 F 59 L 20 152/55 H 99 09/12/17 07:58 09/12/17 07:58 09/12/17 07:58 09/12/17 07:58 09/12/17 07:58 Intake & Output 09/11/17 09/12/17 09/13/17 06:59 06:59 06:59 Intake Total 480 692 Output Total 0 Balance 480 692 Weight 53.4 kg 54.4 kg Exam: GENERAL: well-nourished and in no acute distress. Alert and oriented x3 HEAD: Atraumatic, normocephalic. EYES: Pupils equal round and reactive to light, extraocular movements intact, sclera anicteric, conjunctiva are normal. ENT: TMs normal, nares patent, oropharynx clear without exudates. Moist mucous membranes. No oral ulcerations or bleeding gums noted NECK: supple without lymphadenopathy. Trachea is central. No cervical or axillary lymphadenopathy noted. Carotids are 2+, JVD WNL LUNGS: Respiration seems nonlabored, no significant accessory muscle action noted. Breath sounds clear to auscultation bilaterally and equal noted. No wheezes rales or rhonchi noted. No significant dullness noted on percussion. CHEST: Palpation of the chest wall shows no significant chest wall tenderness. No other significant abnormalities noted. 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 ABDOMEN: Soft, no significant tenderness appreciated, normoactive bowel sounds. No guarding, no rebound. No rigidity noted . No masses appreciated. EXTREMITIES: Pedal pulses are 1-2+, no calf tenderness noted. No clubbing or cyanosis.trace pedal edema noted NEUROLOGICAL: Focused neurological exam showed no significant neurologic deficit. Normal speech, no focal weakness appreciated. PSYCH: Normal mood, normal affect. Judgment and insight within normal limits. SKIN: No significant ecchymosis, skin is noted to be warm. MUSCULOSKELETAL EXAM: No significant acute joint swelling noted. Results Laboratory Results: 09/11/17 05:09 09/11/17 05:09 09/08/17 09/08/17 09/08/17 10:10 14:26 20:30 Troponin I 0.041 0.046 0.035 EKG Comments: Telemetry shows sinus rhythm without any sustained tachycardia or bradycardia. Impressions: Chest X-Ray 09/08/17 05:38 IMPRESSION: Mild-moderate asymmetric pulmonary edema pattern. Differential diagnosis includes multifocal pneumonia and/or chronic interstitial lung disease. Assessment & Plan - Diagnosis (1) Acute congestive heart failure Qualifiers: Heart failure type: diastolic Qualified Code(s): I50.31 - Acute diastolic ( congestive) heart failure Is this a current diagnosis for this admission?: Yes (2) Chest pain, rule out acute myocardial infarction Is this a current diagnosis for this admission?: Yes (3) Diabetes mellitus type 2 in obese Is this a current diagnosis for this admission?: Yes (4) Hypertension Qualifiers: Hypertension type: essential hypertension Qualified Code(s): I10 - Essential (primary) hypertension Is this a current diagnosis for this admission?: Yes (5) Dyspnea Qualifiers: Dyspnea type: dyspnea on exertion Qualified Code(s): R06.09 - Other forms of dyspnea Is this a current diagnosis for this admission?: Yes (6) Dyslipidemia Is this a current diagnosis for this admission?: Yes (7) Tobacco smoke exposure in patient's home Is this a current diagnosis for this admission?: Yes - Notes Notes: Atrial fibrillation: Converted to sinus rhythm. Continue multaq therapy, Ranexa therapy, anticoagulation based on elevated chads score. Patient can follow-up with me within a week of discharge. Congestive heart failure: Most likely acute on chronic diastolic dysfunction. May have been precipitated by severe hypertension, volume overload, noncompliance with medication. At this point recommend optimizing medical therapy. Currently compensated. Chest pain: Patient has known history of coronary artery disease having had coronary artery bypass graft surgery about a year ago at [facility]. Will obtain these records. Patient medical management will be optimized. Stress test negative for significant ischemia. Medical management is being recommended at this point. Continue Ranexa, beta-roddy, nystatin and low- dose aspirin therapy. Diabetes: Recommend good control of blood sugar. However should avoid any hypoglycemia. Preferred agent for blood pressure control with the BONNIE inhibitor or angiotensin receptor blockers. Hypertension: Patient came with severe hypertension. Patient claims she missed one day of antihypertensive medications. Patient advised compliance. Currently blood pressure seems reasonably well controlled. Patient will benefit from scheduling a sleep study as an outpatient. Dyspnea: Related to diastolic dysfunction. Patient encouraged to walk on a regular basis. Dyslipidemia: LDL goal is less than 70. Tobacco exposure: Patient's smokes. Patient advised to avoid secondhand smoking. - Time Time with patient: Greater than 35 minutes - CODE STATUS was discussed, patient remains full code. Surrogate decision-maker unchanged. Multiple medical problems were addressed. More than 50% of the time spent coordinating care, discussing management plans with involved caregivers. Management plans discussed with involved personnels. Medical decision making was of moderate to high complexity, patient's has multiple comorbidities. Medications reviewed and adjusted accordingly: Yes
[2017-09-12 14:59] VITALS: BP 166/74
== END 2017-09-12 16:31 | disposition home or self-care (01) | DRG 293 ==
LOC: ER 05:08 → EH 08:01 → INTOOBSV 08:01 → 3N 10:45 → OBSVTOIN 09-09 20:12
PROVIDERS: ADMIT Family Medicine; ATTEND Family Medicine
PROC: 3E0234Z Introduction of Serum, Toxoid and Vaccine into Muscle, Percutaneous Approach (ICD-10-PCS; principal; 2017-09-12)
DX: I11.0 Hypertensive heart disease with heart failure (principal); I48.91 Unspecified atrial fibrillation; Z95.1 Presence of aortocoronary bypass graft; I50.33 Acute on chronic diastolic (congestive) heart failure; E11.9 Type 2 diabetes mellitus without complications; E78.00 Pure hypercholesterolemia, unspecified; Z77.22 Contact with and (suspected) exposure to environmental tobacco smoke (acute) (chronic); Z79.84 Long term (current) use of oral hypoglycemic drugs; Z79.82 Long term (current) use of aspirin; Z79.899 Other long term (current) drug therapy; Z23 Encounter for immunization; Z95.5 Presence of coronary angioplasty implant and graft; Z91.14 Patient's other noncompliance with medication regimen
CPT/HCPCS: 36415; 71045; 78452; 80048; 80053; 80061; 80069; 82550; 82553; 82962; 83735; 83880; 84484; 85025; 85027; 87040; 90686; 93005; 93010; 93017; 93306; 96365; 96366; 99285; A9500; J0280; J1650; J1815; J1940; J2405; J2550; J2785; J3490; Q9969

== ENCOUNTER 2017-10-15 00:47 | Emergency (ER) | payer BC, MEDICARE ==
[2017-10-15 01:17] VITALS: BP 145/47
[2017-10-15] MEDS ORDERED: DIPHENHYDRAMINE HCL 50 MG CAPSULE PO ONE (01:40)
[2017-10-15] MEDS ORDERED: PREDNISONE 20 MG TABLET PO ONE (01:40)
--- NOTE | 2017-10-15 01:40 | ER Document Report ---
ED General - General Chief Complaint: Facial Swelling Stated Complaint: FACE SWELLING Time Seen by Provider: 10/15/17 01:39 Mode of Arrival: Ambulatory Information source: Patient Notes: 67 yr old female presents with complaints of 2 day duration of facial swelling and arm hives and itching. Pt denies any difficulty breathing or swallowing, denies any tongue or lip swelling. pt notes multiple new meds but none over the past month. pt is on lisinopril. pt denies any hx of angioedema. TRAVEL OUTSIDE OF THE [place] IN LAST 30 DAYS: No - HPI Onset: Yesterday Onset/Duration: Persistent Quality of pain: No pain Severity: Mild Pain Level: Denies Associated symptoms: Other Exacerbated by: Denies Relieved by: Denies Similar symptoms previously: No Recently seen / treated by doctor: Yes - saw obgyn today - Related Data Allergies/Adverse Reactions: No Known Allergies Allergy (Unverified 11/19/15 18:36) Past Medical History - Social History Smoking Status: Never Smoker Cigarette use (# per day): No Chew tobacco use (# tins/day): No Smoking Education Provided: No Family History: CVA - in grandparents - Past Medical History Cardiac Medical History: Reports: Hx Coronary Artery Disease, Hx Hypercholesterolemia, Hx Hypertension Endocrine Medical History: Reports: Hx Diabetes Mellitus Type 2 Renal/ Medical History: Denies: Hx Peritoneal Dialysis Psychiatric Medical History: Denies: Hx Depression Past Surgical History: Reports: Hx Cardiac Surgery - stents x2 (Approx 2005), Hx Cholecystectomy, Hx Coronary Artery Bypass Graft - tripple vessel, Hx Coronary Stent - 3 stents, Hx Hysterectomy - Immunizations Hx Diphtheria, Pertussis, Tetanus Vaccination: Yes Review of Systems - Review of Systems Notes: REVIEW OF SYSTEMS: CONSTITUTIONAL : Denies fever, chills, or sweats. Denies recent illness. EENT: facial swelling CARDIOVASCULAR: Denies chest pain. Denies palpitations or racing or irregular heart beat. Denies ankle edema. RESPIRATORY: Denies cough, cold, or chest congestion. Denies shortness of breath, difficulty breathing, or wheezing. GASTROINTESTINAL: Denies abdominal pain or distention. Denies nausea, vomiting , or diarrhea. Denies blood in vomitus, stools, or per rectum. Denies black, tarry stools. Denies constipation. GENITOURINARY: Denies difficulty urinating, painful urination, burning, frequency, blood in urine, or discharge. FEMALE GENITOURINARY: Denies vaginal bleeding, heavy or abnormal periods, irregular periods. Denies vaginal discharge or odor. MUSCULOSKELETAL: Denies back or neck pain or stiffness. Denies joint pain or swelling. SKIN: allergic reaction HEMATOLOGIC : Denies easy bruising or bleeding. LYMPHATIC: Denies swollen, enlarged glands. NEUROLOGICAL: Denies confusion or altered mental status. Denies passing out or loss of consciousness. Denies dizziness or lightheadedness. Denies headache. Denies weakness or paralysis or loss of use of either side. Denies problems with gait or speech. Denies sensory loss, numbness, or tingling. Denies seizures. PSYCHIATRIC: Denies anxiety or stress. Denies depression, suicidal ideation, or homicidal ideation. ALL OTHER SYSTEMS REVIEWED AND NEGATIVE. PHYSICAL EXAMINATION: GENERAL: Well-appearing, well-nourished and in no acute distress. HEAD: Atraumatic, normocephalic. EYES: Pupils equal round and reactive to light, extraocular movements intact, conjunctiva are normal. ENT: Nares patent, oropharynx clear without exudates. Moist mucous membranes. NECK: Normal range of motion, supple without lymphadenopathy LUNGS: Breath sounds clear to auscultation bilaterally and equal. No wheezes rales or rhonchi. HEART: Regular rate and rhythm without murmurs ABDOMEN: Soft, nontender, nondistended abdomen. No guarding, no rebound. No masses appreciated. Female : deferred Musculoskeletal: Normal range of motion, no pitting or edema. No cyanosis. NEUROLOGICAL: Cranial nerves grossly intact. Normal speech, normal gait. Normal sensory, motor exams PSYCH: Normal mood, normal affect. SKIN: mild swelling of bilateral cheecks, multiple hives of bilateral arms, no angioedema Dictation was performed using [employer] voice recognition software Physical Exam - Vital signs Vitals: Temp Pulse Resp BP Pulse Ox 97.8 F 69 16 145/47 H 96 10/15/17 01:15 10/15/17 01:15 10/15/17 01:15 10/15/17 01:15 10/15/17 01:15 Course - Re-evaluation Re-evalutation: 10/15/17 02:06 Patient's presentation is most consistent with allergic reaction, I do not believe this is secondary to medications as she has been taking it for 1 month and the hives are only on the face and on the arms bilaterally, therefore I have very low suspicion for any life-threatening allergic reaction at this has been ongoing for 2 days and has not involved airway. 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 Also, there is no evidence or peritonitis, sepsis, or toxicity. I have reevaluated this patient multiple times and no significant life threatening changes are noted. The patient and I have discussed the diagnosis and risks, and we agree with discharging home with close follow-up with the understanding that symptoms and presentations can change. We also discussed returning to the Emergency Department immediately if new or worsening symptoms occur. We have discussed the symptoms which are most concerning (e.g., difficulty breathing or swallowing , fever, changing or worsening pain) that necessitate immediate return. - Vital Signs Vital signs: Temp Pulse Resp BP Pulse Ox 97.8 F 69 16 145/47 H 96 10/15/17 01:15 10/15/17 01:15 10/15/17 01:15 10/15/17 01:15 10/15/17 01:15 Discharge - Discharge Clinical Impression: Allergic reaction Qualifiers: Encounter type: initial encounter Qualified Code(s): T78.40XA - Allergy, unspecified, initial encounter Condition: Stable Disposition: HOME, SELF-CARE Instructions: Acute Allergic Reaction ([facility]) Prescriptions: Prednisone [Deltasone 20 mg Tablet] 3 tab PO DAILY 5 Days tablet [facility] [[facility] - Follow up tomorrow
== END 2017-10-15 02:09 | disposition home or self-care (01) ==
LOC: ER 00:47
DX: T78.40XA Allergy, unspecified, initial encounter (principal); R22.0 Localized swelling, mass and lump, head; I25.10 Atherosclerotic heart disease of native coronary artery without angina pectoris; I10 Essential (primary) hypertension; E11.9 Type 2 diabetes mellitus without complications
CPT/HCPCS: 99283; J7512

== ENCOUNTER 2018-05-13 13:23 | Emergency (ER) | payer BC, MEDICARE ==
[2018-05-13] MEDS ORDERED: ACETAMINOPHEN 325 MG TABLET PO ONE (14:45)
--- NOTE | 2018-05-13 15:37 | ER Document Report ---
HPI - HPI Patient complains to provider of: Knee pain Time Seen by Provider: 05/13/18 14:39 Onset: Other - Onset/Duration: Persistent Quality of pain: Achy Severity: Severe Pain Level: 4 Context: Patient presents emergency department with complaints of left knee pain. She reports after working at the [employer] she went home and noticed her left knee hurting. She denies trauma. He did see her primary care provider for this pain. Denies past medical history of injury to the knee. Because the pain is constant that increases when she works. She denies other complaints such as fever nausea vomiting diarrhea. Associated Symptoms: None Exacerbated by: Walking Relieved by: Denies Similar symptoms previously: No Recently seen / treated by doctor: No - CONSTITUTIONAL Constitutional: DENIES: Fever, Chills - REPRODUCTIVE Reproductive: DENIES: : - MUSCULOSKELETAL Musculoskeletal: REPORTS: Extremity pain - Left knee Past Medical History - General Information source: Patient - Social History Smoking Status: Never Smoker Chew tobacco use (# tins/day): No Frequency of alcohol use: None Drug Abuse: None Family History: CVA - in grandparents Patient has suicidal ideation: No Patient has homicidal ideation: No - Past Medical History Cardiac Medical History: Reports: Hx Coronary Artery Disease, Hx Hypercholesterolemia, Hx Hypertension Endocrine Medical History: Reports: Hx Diabetes Mellitus Type 2 Renal/ Medical History: Denies: Hx Peritoneal Dialysis Psychiatric Medical History: Denies: Hx Depression Past Surgical History: Reports: Hx Cardiac Surgery - stents x2 (Approx 2005), Hx Cholecystectomy, Hx Coronary Artery Bypass Graft - tripple vessel, Hx Coronary Stent - 3 stents, Hx Hysterectomy - Immunizations Hx Diphtheria, Pertussis, Tetanus Vaccination: Yes Vertical Provider Document - CONSTITUTIONAL Agree With Documented VS: Yes Exam Limitations: No Limitations General Appearance: WD/WN, No Apparent Distress - INFECTION CONTROL TRAVEL OUTSIDE OF THE [place] IN LAST 30 DAYS: No - HEENT HEENT: Atraumatic, Normocephalic - NECK Neck: Supple - RESPIRATORY Respiratory: No Respiratory Distress - CARDIOVASCULAR Cardiovascular: Regular Rate - MUSCULOSKELETAL/EXTREMETIES Musculoskeletal/Extremeties: MAEW, FROM, Tender - Complains left anterior knee tender to palpation no obvious deformity no swelling no erythema no warmth good pedal pulse - NEURO Level of Consciousness: Awake, Alert, Appropriate Motor/Sensory: No Motor Deficit - DERM Integumentary: Warm, Dry Adult Front & Back Diagram: 1 - Reports tender to palpation, complains of constant pain increases with movement and walking. Course - Re-evaluation Re-evalutation: 05/13/18 15:36 Instructed on pending x-ray and Tylenol. 05/13/18 Negative study of the left knee no joint effusion. Patient son were instructed on the results of the x-ray. They were instructed to follow-up with primary care provider Tylenol as indicated rest and ice to the knee for comfort. They both verbalized understanding. Dictation of this chart was performed using voice recognition software; therefore, there may be some unintended grammatical errors. - Vital Signs Vital signs: Temp Pulse Resp BP Pulse Ox 98.0 F 62 16 197/74 H 99 05/13/18 13:30 05/13/18 13:30 05/13/18 13:30 05/13/18 13:30 05/13/18 13:30 - Diagnostic Test Radiology reviewed: Image reviewed, Reports reviewed - Negative study of the left knee no joint effusion Discharge - Discharge Clinical Impression: Left anterior knee pain Condition: Stable Disposition: HOME, SELF-CARE Instructions: Use of Nyly-Hod-Xeytxtr Ibuprofen ([facility]), Ice & Elevation ([facility]) Additional Instructions: *You have been evaluated for knee pain *Rest/Ice/Elevate your knee *Follow up with your primary care provider Tuesday for recheck and referral to orthopedics as indicated *Take motrin as indicated for pain *Return to ED for worsening condition, changes, needs Forms: Elevated Blood Pressure Referrals: JOHN NINA PA-C [Primary Care Provider] - 05/15/18
--- NOTE | 2018-05-13 16:09 | RADIOLOGY REPORT (SQ) ---
EXAM DESCRIPTION: KNEE LEFT 4 VIEW COMPLETED DATE/TIME: 05/13/2018 3:56 pm REASON FOR STUDY: knee pain COMPARISON: None. NUMBER OF VIEWS: Four views. TECHNIQUE: AP, lateral, and both oblique radiographic images acquired of the left knee. LIMITATIONS: None. FINDINGS: MINERALIZATION: Normal. BONES: No acute fracture or dislocation. No worrisome bone lesions. JOINT: No effusion. SOFT TISSUES: No soft tissue swelling. No radio-opaque foreign body. OTHER: No other significant finding. IMPRESSION: NEGATIVE STUDY OF THE LEFT KNEE. NO RADIOGRAPHIC EVIDENCE OF ACUTE INJURY. TECHNICAL DOCUMENTATION: JOB ID: [id number] [employer]- All Rights Reserved Reading location - IP/workstation name: [email or web address]
[2018-05-13 16:30] VITALS: BP 195/60
== END 2018-05-13 16:31 | disposition home or self-care (01) ==
LOC: ER 13:23
DX: M25.562 Pain in left knee (principal); I25.10 Atherosclerotic heart disease of native coronary artery without angina pectoris; E78.00 Pure hypercholesterolemia, unspecified; I10 Essential (primary) hypertension; E11.9 Type 2 diabetes mellitus without complications; Z90.49 Acquired absence of other specified parts of digestive tract; Z95.1 Presence of aortocoronary bypass graft; Z90.710 Acquired absence of both cervix and uterus
CPT/HCPCS: 99283

== ENCOUNTER → 2018-10-06 | Outpatient (CLI) | payer BC, MEDICARE ==
--- NOTE | 2018-10-06 15:56 | RADIOLOGY REPORT (SQ) ---
EXAM DESCRIPTION: FOOT LEFT COMPLETE COMPLETED DATE/TIME: 10/06/2018 3:37 pm REASON FOR STUDY: ACUTE PAIN OF LEFT KNEE;LEFT FOOT PAIN M25.562 PAIN IN LEFT KNEE M79.672 PAIN IN LEFT FOOT COMPARISON: None. NUMBER OF VIEWS: Three views. TECHNIQUE: AP, lateral and oblique radiographic images acquired of the left foot. LIMITATIONS: None. FINDINGS: MINERALIZATION: Normal. BONES: No acute fracture or dislocation. No worrisome bone lesions. JOINTS: No effusions. SOFT TISSUES: No soft tissue swelling. No foreign body. OTHER: No other significant finding. IMPRESSION: NEGATIVE STUDY OF THE LEFT FOOT. NO RADIOGRAPHIC EVIDENCE OF ACUTE INJURY. TECHNICAL DOCUMENTATION: JOB ID: [id number] [employer]- All Rights Reserved Reading location - IP/workstation name: [email or web address]
--- NOTE | 2018-10-06 15:58 | RADIOLOGY REPORT (SQ) ---
EXAM DESCRIPTION: KNEE LEFT 4 VIEWS COMPLETED DATE/TIME: 10/06/2018 3:37 pm REASON FOR STUDY: ACUTE PAIN OF LEFT KNEE;LEFT FOOT PAIN M25.562 PAIN IN LEFT KNEE M79.672 PAIN IN LEFT FOOT COMPARISON: 05/13/2018 NUMBER OF VIEWS: Four views. TECHNIQUE: AP, lateral, and both oblique radiographic images acquired of the left knee. LIMITATIONS: None. FINDINGS: MINERALIZATION: Normal. BONES: No acute fracture or dislocation. No worrisome bone lesions. No significant osteophytes. JOINT: No effusion. No chondrocalcinosis. OTHER: No other significant finding. IMPRESSION: NEGATIVE STUDY OF THE LEFT KNEE. NO EXPLANATION FOR PAIN. TECHNICAL DOCUMENTATION: JOB ID: [id number] [employer]- All Rights Reserved Reading location - IP/workstation name: [email or web address]
== END ==
LOC: OD 15:11
PROVIDERS: ATTEND Nurse Practitioner Family
DX: M25.562 Pain in left knee (principal); M79.672 Pain in left foot

== ENCOUNTER → 2019-05-08 | Outpatient (CLI) | payer BC, MEDICARE ==
--- NOTE | 2019-05-08 15:14 | WOMENS IMAGING REPORT ---
EXAM DESCRIPTION: BILAT SCREENING MAMMO W/CAD COMPLETED DATE/TIME: 05/08/2019 2:35 pm REASON FOR STUDY: Z12.31 SCREENING MAMMO Z78.0 ASYMPTOMATIC MENOPAUSAL STATE Z12.31 ENCNTR SCREEN MAMMOGRAM FOR MALIGNANT NEOPLASM OF JAZMYNE COMPARISON: None. EXAM PARAMETERS: Standard craniocaudal and mediolateral oblique views of each breast recorded using digital acquisition. Read with the assistance of CAD. .[facility] - [employer] Actuary Clerk Version 9.2 LIMITATIONS: None. FINDINGS: Findings present which are benign by mammographic criteria. No suspicious masses, calcifi cations or architectural distortion. Benign mammographic findings may include one or more of the following: Smooth masses, popcorn/rim/co arse calcifications, asymmetries, post-procedure changes, and lesions with long-standing stability. IMPRESSION: BENIGN MAMMOGRAPHIC FINDINGS. BIRADS 2 BREAST DENSITY: b. There are scattered areas of fibroglandular density. BIRAD: ASSESSMENT: 2 BENIGN FINDING(S) RECOMMENDATION: ROUTINE SCREENING COMMENT: The patient has been notified of the results by letter per SA requirements. Additional no tification policies are in place for contacting patient with suspicious or incomplete findings. Quality ID #[id number]: The [employer] recommends an annual screening mammogram for women aged 40 years or over. This facility utilizes a reminder system to ensure that all patients receive reminder letters, and/or direct phone calls for appointments. This includes reminders for routine scr eening mammograms, diagnostic mammograms, or other Breast Imaging Interventions when appropriate. Th is patient will be placed in the appropriate reminder system. TECHNICAL DOCUMENTATION: FINDING NUMBER: (1) ASSESSMENT: (1) JOB ID: [id number] [employer]- All Rights Reserved Reading location - IP/workstation name: [email or web address]
--- NOTE | 2019-05-08 15:15 | WOMENS IMAGING REPORT ---
EXAM DESCRIPTION: BONE DENSITY HIP/SPINE COMPLETED DATE/TIME: 05/08/2019 2:35 pm REASON FOR STUDY: Z78.0 BONE DENSITY Z78.0 ASYMPTOMATIC MENOPAUSAL STATE Z12.31 ENCNTR SCREEN MAMM OGRAM FOR MALIGNANT NEOPLASM OF JAZMYNE COMPARISON: None. TECHNIQUE: Dual-Energy X-ray Absorptiometry (DEXA) of the AP Spine and Hip. LIMITATIONS: None. FINDINGS: LUMBAR SPINE: The bone mineral density (BMD) measured from L1-L4 in the AP projection correlates with a T-score of -1.6, which is osteopenia as defined by the World Health Organization. BMD Change vs Baseline: N/A HIP: The bone mineral density (BMD) measured in the left hip correlates with a T-score of -1.5, which is o steopenia as defined by the World Health Organization. BMD Change vs Baseline: N/A 10 year Fracture Risk Assessment: Major Osteoporotic Fracture: 5% Hip Fracture: 0.5% IMPRESSION: 1. LUMBAR SPINE WHO CLASSIFICATION: OSTEOPENIA. 2. HIP WHO CLASSIFICATION: OSTEOPENIA. OVERALL ASSESSMENT: WHO CLASSIFICATION: OSTEOPENIA. COMMENT: The World Health Organization defines low BMD as follows: T-score: Normal: Greater than -1.0 Osteopenia: Between -1.0 and -2.5 Osteoporosis: Less than -2.5 without fractures Established osteoporosis: Less than -2.5 with fractures In general, you may wish to consider: Diagnosis Treatment Follow-up DEXA Normal BMD Prevention 2-3 years Osteopenia Prevention/Therapy 1-2 years Osteoporosis Therapy Yearly TECHNICAL DOCUMENTATION: JOB ID: [id number] [employer]- All Rights Reserved Reading location - IP/workstation name: [email or web address]
== END ==
LOC: WI 14:00
PROVIDERS: ATTEND Nurse Practitioner Family
DX: Z12.31 Encounter for screening mammogram for malignant neoplasm of breast (principal); M85.88 Other specified disorders of bone density and structure, other site
CPT/HCPCS: 77067; 77080

== ENCOUNTER → 2019-11-02 | Outpatient (CLI) | payer BC, MEDICARE ==
[2019-11-02 15:03] LABS: ABSOLUTE BASOPHILS # (AUTO) 0.1 10^3/uL (0.0-0.2); ABSOLUTE EOSINOPHILS # (AUTO) 0.9 10^3/uL (0.0-0.6); ABSOLUTE LYMPHOCYTES (AUTO) 2.1 10^3/uL (0.5-4.7); ABSOLUTE MONOCYTES (AUTO) 0.4 10^3/uL (0.1-1.4); ABSOLUTE NEUT (AUTO) 4.4 10^3/uL (1.7-8.2); BASOPHILS % (AUTO) 1.6 % (0-2); EOSINOPHILS % (AUTO) 11.1 % (0-6); HEMATOCRIT 36.5 % (36.0-47.0); HEMOGLOBIN 12.1 g/dL (12.0-15.5); LYMPHOCYTES % (AUTO) 26.4 % (13-45); MEAN CORPUSCULAR HEMOGLOBIN 25.9 pg (27.0-33.4); MEAN CORPUSCULAR HGB CONC 33.1 g/dL (32.0-36.0); MEAN CORPUSCULAR VOLUME 78 fl (80-97); PLATELET COUNT 267 10^3/uL (150-450); RED BLOOD COUNT 4.68 10^6/uL (3.72-5.28); SEGMENTED NEUTROPHILS % (AUTO) 55.9 % (42-78); TOTAL CELLS COUNTED % (AUTO) 100 %; WHITE BLOOD COUNT 7.9 10^3/uL (4.0-10.5)
[2019-11-02 15:28] LABS: ALBUMIN 4.6 g/dL (3.5-5.0); ALKALINE PHOSPHATASE 55 U/L (38-126); ANION GAP 9 (5-19); ASPARTATE AMINO TRANSFERASE 21 U/L (14-36); BILIRUBIN,TOTAL 0.2 mg/dL (0.2-1.3); BLOOD UREA NITROGEN 24 mg/dL (7-20); CALCIUM 9.6 mg/dL (8.4-10.2); CARBON DIOXIDE 22 mmol/L (22-30); CHLORIDE 106 mmol/L (98-107); CHOLESTEROL 197.61 mg/dL (0-200); GLUCOSE 99 mg/dL (75-110); POTASSIUM 5.5 mmol/L (3.6-5.0); TOTAL PROTEIN 7.6 g/dL (6.3-8.2); TRIGLYCERIDES 469 mg/dL (<150)
[2019-11-02 15:45] LABS: DIRECT LDL 102 mg/dL (<100)
== END ==
LOC: OD 14:05
PROVIDERS: ATTEND Nurse Practitioner Family
DX: E11.42 Type 2 diabetes mellitus with diabetic polyneuropathy (principal); E11.69 Type 2 diabetes mellitus with other specified complication; Z79.4 Long term (current) use of insulin; I25.10 Atherosclerotic heart disease of native coronary artery without angina pectoris; I48.0 Paroxysmal atrial fibrillation; E78.2 Mixed hyperlipidemia; I10 Essential (primary) hypertension; M89.49 Other hypertrophic osteoarthropathy, multiple sites
CPT/HCPCS: 36415; 80053; 80061; 84443; 85025

== ENCOUNTER 2020-01-14 20:01 | Inpatient (IN) | payer BC, MEDICARE ==
[2020-01-14 20:31] LABS: ABSOLUTE BASOPHILS # (AUTO) 0.2 10^3/uL (0.0-0.2); ABSOLUTE EOSINOPHILS # (AUTO) 0.7 10^3/uL (0.0-0.6); ABSOLUTE LYMPHOCYTES (AUTO) 1.7 10^3/uL (0.5-4.7); ABSOLUTE MONOCYTES (AUTO) 0.5 10^3/uL (0.1-1.4); ABSOLUTE NEUT (AUTO) 5.8 10^3/uL (1.7-8.2); BASOPHILS % (AUTO) 2.1 % (0-2); EOSINOPHILS % (AUTO) 7.8 % (0-6); HEMATOCRIT 34.7 % (36.0-47.0); HEMOGLOBIN 11.4 g/dL (12.0-15.5); LYMPHOCYTES % (AUTO) 19.3 % (13-45); MEAN CORPUSCULAR HEMOGLOBIN 25.4 pg (27.0-33.4); MEAN CORPUSCULAR VOLUME 77 fl (80-97); MONOCYTES % (AUTO) 5.9 % (3-13); PLATELET COUNT 274 10^3/uL (150-450); RED BLOOD COUNT 4.51 10^6/uL (3.72-5.28); RED CELL DISTRIBUTION WIDTH 16.6 % (11.5-14.0); SEGMENTED NEUTROPHILS % (AUTO) 64.9 % (42-78); TOTAL CELLS COUNTED % (AUTO) 100 %
[2020-01-14 20:48] LABS: ALBUMIN 4.7 g/dL (3.5-5.0); ALKALINE PHOSPHATASE 48 U/L (38-126); ANION GAP 12 (5-19); ASPARTATE AMINO TRANSFERASE 25 U/L (14-36); BILIRUBIN,DIRECT 0.1 mg/dL (0.0-0.4); BILIRUBIN,TOTAL 0.4 mg/dL (0.2-1.3); BLOOD UREA NITROGEN 24 mg/dL (7-20); CALCIUM 9.7 mg/dL (8.4-10.2); CARBON DIOXIDE 19 mmol/L (22-30); CHLORIDE 105 mmol/L (98-107); CREATINE KINASE 61 U/L (30-135); GLUCOSE 156 mg/dL (75-110); POTASSIUM 4.5 mmol/L (3.6-5.0)
--- NOTE | 2020-01-14 20:56 | RADIOLOGY REPORT (SQ) ---
EXAM DESCRIPTION: X-ray, two views of the chest CLINICAL HISTORY: 69 years Female, chest pain COMPARISON: Single view of the chest 09/08/2017 FINDINGS: Lungs: Diffuse prominence of the interstitial markings is identified with increase in small irregular shadows and septal lines. Small bilateral pleural effusions are seen right greater than left. Upper lobe vessel distention and recruitment is noted. Mediastinum: Heart size is enlarged and the mediastinum is widened. There is postoperative change of CABG. Bones: Osseous structures are normal. IMPRESSION: Cardiomegaly with changes of mild pulmonary edema.
[2020-01-14 20:59] LABS: CREATINE KINASE MB 1.74 ng/mL (<4.55)
--- NOTE | 2020-01-14 21:00 | EKG REPORT ---
SEVERITY:- ABNORMAL ECG - ATRIAL FIBRILLATION REPOL ABNRM SUGGESTS ISCHEMIA, LATERAL LEADS : Confirmed by: Kevin Garcia MD 14-Jan-2020 20:59:29
[2020-01-14 21:04] LABS: TROPONIN I 0.046 ng/mL
[2020-01-14] MEDS ORDERED: NITROGLYCERIN 2% OINTMENT 1 GM PACKET TP ONE (21:20)
[2020-01-14] MEDS ORDERED: ENALAPRILAT DIHYDRATE INJ/PF 1.25 MG/1 ML SDV IV ONE (21:40)
[2020-01-14] MEDS ORDERED: FUROSEMIDE INJ/PF 40 MG/4 ML SDV IV ONE (21:40)
--- NOTE | 2020-01-14 21:42 | ER Document Report ---
Entered by PARKER JAMA SCRIBE 01/14/202119 Acting as scribe for:TAZ CRAFT DO ED Cardiac - General Stated Complaint: CHEST PAIN Mode of Arrival: Medic Information source: Patient Notes: This 69 year old female patient with a history of HTN, HLD, A fib, CAD with x3 stents, and triple CABG in 2015 brought in by EMS presents to the ED today with complaints of intermittent right-sided chest pain for the past x1-2 months, worse with associated shortness of breath this evening prior to arrival. Patient states that the pain radiates to her back. Per ED nurse, patient took x6 baby aspirin prior to EMS arrival and received x2 0.4 mg SL Nitroglycerin from EMS with mild relief. Patient did show A fib on the monitor with a heart rate in the 120s with EMS. Patient states that she has not spoken with her sports cartoonist Dr. Galaviz about these episodes. Denies fever, cough, abdominal pain, or sick contacts. TRAVEL OUTSIDE OF THE [place] IN LAST 30 DAYS: No - Related Data Allergies/Adverse Reactions: No Known Allergies Allergy (Verified 05/13/18 13:24) Home Medications: Pravastatin, ASA, Motrin, Isosorbide, Clonidine, Metformin, Carvedilol, Eliquis, Lisinopril Past Medical History - General Information source: Patient, [facility] Records - Social History Smoking Status: Never Smoker Cigarette use (# per day): No Chew tobacco use (# tins/day): No Smoking Education Provided: No Frequency of alcohol use: None Drug Abuse: None Family History: Reviewed & Not Pertinent, CVA Patient has suicidal ideation: No Patient has homicidal ideation: No - Past Medical History Cardiac Medical History: Reports: Hx Atrial Fibrillation, Hx Coronary Artery Disease, Hx Hypercholesterolemia, Hx Hypertension Endocrine Medical History: Reports: Hx Diabetes Mellitus Type 2 Past Surgical History: Reports: Hx Cholecystectomy, Hx Coronary Artery Bypass Graft - tripple vessel, Hx Coronary Stent - 3 stents, Hx Hysterectomy - Immunizations Hx Diphtheria, Pertussis, Tetanus Vaccination: Yes Review of Systems - Review of Systems Constitutional: See HPI. denies: Fever EENT: No symptoms reported Cardiovascular: See HPI, Chest pain Respiratory: See HPI, Short of breath. denies: Cough Gastrointestinal: See HPI. denies: Abdominal pain Genitourinary: No symptoms reported Female Genitourinary: No symptoms reported Musculoskeletal: See HPI, Back pain Skin: No symptoms reported Hematologic/Lymphatic: No symptoms reported Neurological/Psychological: No symptoms reported -: Yes All other systems reviewed and negative Physical Exam - Vital signs Vitals: Resp 18 01/14/20 20:11 - General General appearance: Alert In distress: None - HEENT Head: Normocephalic, Atraumatic Eyes: Normal Pupils: PERRL - Respiratory Respiratory status: No respiratory distress Chest status: Nontender Breath sounds: Rales - Mild rales at base Chest palpation: Normal - Cardiovascular Rhythm: Irregularly irregular, Tachycardia Heart sounds: Normal auscultation Murmur: No Friction rub: No Gallop: None auscultated - Abdominal Inspection: Obese Distension: No distension Bowel sounds: Normal Tenderness: Nontender - Abdomen soft Organomegaly: No organomegaly - Back Back: Normal, Nontender - Extremities General upper extremity: Normal inspection General lower extremity: Normal inspection. No: Edema - Neurological Neuro grossly intact: Yes Orientation: AAOx4 [place] Coma Scale Eye Opening: Spontaneous [place] Coma Scale Verbal: Oriented Chuckie Coma Scale Motor: Obeys Commands Chuckie Coma Scale Total: 15 - Psychological Associated symptoms: Normal affect, Normal mood - Skin Skin Temperature: Warm Skin Moisture: Dry Skin Color: Normal Course - Re-evaluation Re-evalutation: 01/14/20 23:07 MDM 69 year old female with CAD, htn, dm, a fib on eloquis is here with a fib and rvr. Some sob today with this and workup consistent with chf. Better after meds here. Last SBP 145. HR about 100. I have spoken briefly with the hospitalist team and am awaiting call back. - Vital Signs Vital signs: Temp Pulse Resp BP Pulse Ox 97.9 F 19 150/95 H 100 01/14/20 20:30 01/14/20 22:48 01/14/20 22:48 01/14/20 22:48 - Laboratory Result Diagrams: 01/14/20 20:15 01/14/20 20:15 Laboratory results interpreted by me: 01/14/20 01/14/20 20:15 20:15 Hgb 11.4 L Hct 34.7 L MCV 77 L MCH 25.4 L RDW 16.6 H Eos % (Auto) 7.8 H Baso % (Auto) 2.1 H Absolute Eos (auto) 0.7 H Sodium 135.8 L Carbon Dioxide 19 L BUN 24 H Est GFR (MDRD) Non-Af 57 L Glucose 156 H - Diagnostic Test Radiology reviewed: Image reviewed, Reports reviewed - EKG Interpretation by Me Rate: Tachycardia Rhythm: A.Fib - A fib with RVR 112 BPM Nl Veteran Repol Abnormality no st elevation or depression my interpretation. Critical Care Note - Critical Care Note Total time excluding time spent on procedures (mins): 30 Discharge - Discharge Clinical Impression: Atrial fibrillation with rapid ventricular response CHF (congestive heart failure) Qualifiers: Heart failure type: other Qualified Code(s): I50.9 - Heart failure, unspecified Condition: Good Disposition: ADMITTED INPATIENT Admitting Provider: Lázaro (Hospitalist) Unit Admitted: Telemetry I personally performed the services described in the documentation, reviewed and edited the documentation which was dictated to the scribe in my presence, and it accurately records my words and actions.
[2020-01-14] MEDS ORDERED: DILTIAZEM HCL INJ 25 MG/5 ML VIAL IV ONE (22:21)
--- NOTE | 2020-01-15 00:01 | PDOC H&P ---
History of Present Illness Admission Date/PCP: GOMEZ LEONG History of Present Illness: NANI OBRIEN is a 69 year old female with a history of atrial fibrillation, hypertension, and coronary artery disease, and [id number] diabetes mellitus who presents with chest discomfort and palpitations. She said it started this afternoon around 4 PM. She said she is been having episodes like this every day for the past month. She said it only happens later in the day bu t this time it happened earlier in the day. She said it usually goes away but this time it seemed like it was persisting for an undetermined period of time. She came to the ER was found to have a substantially elevated heart rate, and her blood pressure was pretty high as well with at least one systolic reading over 200. Her heart rate was under control with a single push of IV Cardizem, and her blood pressure came down temporarily, but she has had a couple of high readings since then. She is not having any more symptoms of palpitations or discomfort. The only medication that she takes at home that would control her rate is Coreg. She says she used to be on diltiazem and dronedarone years ago but was taken off of both of them. Past Medical History Cardiac Medical History: Reports: Atrial Fibrillation, Coronary Artery Disease, Hyperlipidema, Hypertension Endocrine Medical History: Reports: Diabetes Mellitus Type 2 Psychiatric Medical History: Denies: Depression Past Surgical History Past Surgical History: Reports: Cholecystectomy, Coronary Artery Bypass Graft - tripple vessel, Coronary Stent - 3 stents, Hysterectomy Social History Smoking Status: Never Smoker Frequency of Alcohol Use: None Hx Recreational Drug Use: No Drugs: None Hx Prescription Drug Abuse: No Family History Family History: Reviewed & Not Pertinent, CAD, CVA, DM, Hyperlipidemia, Hypertension Parental Family History Reviewed: Yes Children Family History Reviewed: Yes Sibling(s) Family History Reviewed.: Yes Medication/Allergy Home Medications: Aspirin [Adult Low Dose Aspirin EC] 81 mg PO DAILY 09/08/17 Metformin HCl [Glucophage] 1,000 mg PO BID 09/08/17 Apixaban [Eliquis 5 mg Tablet] 5 mg PO Q12 #60 tablet 09/12/17 Atorvastatin Calcium [Lipitor 80 mg Tablet] 80 mg PO QHS #30 tablet 09/12/17 Carvedilol [Coreg 6.25 mg Tablet] 6.25 mg PO Q12 #60 tablet 09/12/17 Diltiazem HCl [Cardizem Cd 120 mg Capsule] 120 mg PO DAILY #30 cap.sr.24h 09/12/17 Dronedarone Hydrochloride [Multaq 400 mg Tablet] 400 mg PO Q12 #60 tablet 09/12/17 Isosorbide Mononitrate [Imdur 30 mg Tablet.er] 30 mg PO DAILY #30 tab.er.24h 09/12/17 Lisinopril [Prinivil 10 mg Tablet] 10 mg PO DAILY #30 tablet 09/12/17 Metformin HCl [Glucophage 500 mg Tablet] 1,000 mg PO BIDACBS tablet 09/12/17 Prednisone [Deltasone 20 mg Tablet] 3 tab PO DAILY 5 Days tablet 10/15/17 Allergies/Adverse Reactions: No Known Allergies Allergy (Verified 05/13/18 13:24) Review of Systems All systems: reviewed and no additional remarkable complaints except as stated - All systems were reviewed and were negative except as noted in the HPI Physical Exam Vital Signs: Temp Pulse Resp BP Pulse Ox 97.9 F 19 150/95 H 100 01/14/20 20:30 01/14/20 22:48 01/14/20 22:48 01/14/20 22:48 Intake & Output 01/13/20 01/14/20 01/15/20 06:59 06:59 06:59 Weight 60.2 kg General appearance: PRESENT: no acute distress, cooperative, disheveled Head exam: PRESENT: atraumatic, normocephalic Eye exam: PRESENT: EOMI, PERRLA. ABSENT: conjunctival injection, nystagmus, scl eral icterus Ear exam: PRESENT: normal external ear exam Mouth exam: PRESENT: moist, neck supple Throat exam: ABSENT: post pharyngeal erythema Neck exam: PRESENT: full ROM. ABSENT: carotid bruit, JVD, lymphadenopathy, meningismus, tenderness, thyromegaly Respiratory exam: PRESENT: clear to auscultation miguel angel, symmetrical, unlabored. ABSENT: accessory muscle use, chest wall tenderness, crackles, prolonged expiratory phas, rhonchi, tachypnea, wheezes Cardiovascular exam: PRESENT: irregular rhythm - Normal rate, +S1, +S2 Pulses: PRESENT: normal carotid pulses Vascular exam: PRESENT: normal capillary refill GI/Abdominal exam: PRESENT: normal bowel sounds, soft. ABSENT: distended, guarding, rebound, tenderness Extremities exam: ABSENT: clubbing, pedal edema Musculoskeletal exam: PRESENT: normal inspection. ABSENT: deformity Neurological exam: PRESENT: alert, awake, oriented to person, oriented to place, oriented to situation, CN II-XII grossly intact. ABSENT: motor sensory deficit Psychiatric exam: PRESENT: appropriate affect, normal mood Skin exam: PRESENT: dry, warm Results Laboratory Results: 01/14/20 20:15 01/14/20 20:15 01/14/20 01/14/20 20:15 20:15 WBC 9.0 RBC 4.51 Hgb 11.4 L Hct 34.7 L MCV 77 L MCH 25.4 L MCHC 33.0 RDW 16.6 H Plt Count 274 Seg Neutrophils % 64.9 Sodium 135.8 L Potassium 4.5 Chloride 105 Carbon Dioxide 19 L Anion Gap 12 BUN 24 H Creatinine 0.97 Est GFR ( Amer) > 60 Glucose 156 H Calcium 9.7 Total Bilirubin 0.4 AST 25 Alkaline Phosphatase 48 Total Protein 8.0 Albumin 4.7 01/14/20 01/14/20 20:15 20:15 Creatine Kinase 61 CK-MB (CK-2) 1.74 Troponin I 0.046 Impressions: Chest X-Ray 01/14/20 00:00 IMPRESSION: Cardiomegaly with changes of mild pulmonary edema. Assessment and Plan - Diagnosis (1) Atrial fibrillation with rapid ventricular response Is this a current diagnosis for this admission?: Yes Plan: Her rate was controlled pretty quickly with a single dose of IV Cardizem. Rather than put her on a drip, I am going to try her on oral Cardizem and see how she responds. It said on her chest x-ray that she had some pulmonary vascular congestion but she is not dyspneic, she is not tachypneic, her saturations on room air are in the upper 90s, and her physical exam is inconsistent with heart failure. She is on Eliquis, which we will continue. (2) Hypertensive urgency Is this a current diagnosis for this admission?: Yes Plan: We will continue her lisinopril, Coreg, and isosorbide. I will also have some PRN hydralazine available. She is being started on diltiazem for her heart rate which should also have some effect on her blood pressure. (3) Diabetes Qualifiers: Diabetes mellitus type: type 2 Diabetes mellitus intermediate insulin use: without intermediate use Diabetes mellitus complication status: without complication Qualified Code(s): E11.9 - Type 2 diabetes mellitus without complications Is this a current diagnosis for this admission?: Yes Plan: Continue metformin with a diabetic diet. (4) Dyslipidemia Is this a current diagnosis for this admission?: Yes Plan: Continue pravastatin - Time Time Spent with patient: 35 or more minutes Anticipated discharge: Home Within: within 72 hours - Inpatient Certification Based on my medical assessment, after consideration of the patient's comorbidities, presenting symptoms, or acuity I expect that the services needed warrant INPATIENT care.: Yes I certify that my determination is in accordance with my understanding of Medicare's requirements for reasonable and necessary INPATIENT services [42 CFR 412.3e].: Yes Medical Necessity: Significant Comorbidiites Make Outpatient Treatment Too Risky, Need Close Monitoring Due to Risk of Patient Decompensation, Need For Continuous Telemetry Monitoring, Risk of Complication if Not Cared For in Hospital
[2020-01-15] MEDS: DILTIAZEM HCL 30 MG TABLET PO SCH ×4 (00:32→18:44)
[2020-01-15] MEDS: HYDRALAZINE HCL INJ/PF 20 MG/1 ML SDV IV PRN ×2 (01:33→11:50)
[2020-01-15 06:12] LABS: HEMATOCRIT 34.5 % (36.0-47.0); HEMOGLOBIN 11.4 g/dL (12.0-15.5); MEAN CORPUSCULAR HEMOGLOBIN 25.2 pg (27.0-33.4); MEAN CORPUSCULAR VOLUME 76 fl (80-97); PLATELET COUNT 257 10^3/uL (150-450); RED BLOOD COUNT 4.51 10^6/uL (3.72-5.28); RED CELL DISTRIBUTION WIDTH 16.8 % (11.5-14.0); WHITE BLOOD COUNT 9.1 10^3/uL (4.0-10.5)
[2020-01-15 06:38] LABS: ANION GAP 13 (5-19); BLOOD UREA NITROGEN 25 mg/dL (7-20); CALCIUM 9.5 mg/dL (8.4-10.2); CARBON DIOXIDE 18 mmol/L (22-30); CHLORIDE 106 mmol/L (98-107); GLUCOSE 170 mg/dL (75-110); POTASSIUM 4.1 mmol/L (3.6-5.0)
[2020-01-15] MEDS ORDERED: DEXTROSE 50%-WATER 25 GM/50 ML DISP.SYRIN IV PRN ×2 (09:34)
[2020-01-15] MEDS ORDERED: GLUCAGON,HUMAN RECOMB 1 MG INJ IM PRN (09:34)
[2020-01-15] MEDS ORDERED: DEXTROSE 40% GEL 15 GM TUBE PO PRN ×2 (09:34)
[2020-01-15] MEDS: INSULIN LISPRO 100 UNIT/ML 3 ML VIAL SUBCUT SCH ×3 (11:42→21:45)
[2020-01-15] MEDS ORDERED: NORMAL SALINE 1000 ML 1,000 ML IV PRN (16:44)
--- NOTE | 2020-01-15 17:12 | PDOC PROGRESS REPORT ---
Subjective Progress Note for:: 01/15/20 Subjective:: NANI OBRIEN is a 69 year old female with a history of atrial fibrillation, hypertension, and coronary artery disease, and [id number] diabetes mellitus who was admitted 01/14/20 for a. fib RVR. Patient was seen on afternoon rounds. She is found resting in bed, comfortably, on room air while speaking on the phone. She tells me that for the most of the day, she was feeling much better, however, approximately 30 minutes ago she had a brief episode of right upper chest discomfort described as "squeezing" that occurred while at rest and resolved spontaneously after a few minutes. Her chest discomfort was not associated with her symptoms. Otherwise, she has no new questions or concerns. She denies fever, chills, dyspnea, orthopnea, abdominal pain, nausea vomiting diarrhea. No concerns per nursing. Reason For Visit: AFIB/RVR, HYPERTENSIVE URGENCY Physical Exam Vital Signs: Temp Pulse Resp BP Pulse Ox 98.1 F 70 19 182/63 H 100 01/15/20 11:23 01/15/20 14:00 01/15/20 11:23 01/15/20 11:23 01/15/20 11:23 Intake & Output 01/14/20 01/15/20 01/16/20 06:59 06:59 06:59 Intake Total 260 Balance 260 Weight 57.1 kg General appearance: PRESENT: no acute distress, well-developed, well-nourished Head exam: PRESENT: atraumatic, normocephalic Eye exam: PRESENT: conjunctiva pink, EOMI, PERRLA. ABSENT: scleral icterus Mouth exam: PRESENT: moist, tongue midline Respiratory exam: PRESENT: clear to auscultation miguel angel, symmetrical, unlabored. ABSENT: rales, rhonchi, wheezes Cardiovascular exam: PRESENT: irregular rhythm, +S1, +S2. ABSENT: diastolic murmur, rubs, systolic murmur Pulses: PRESENT: normal dorsalis pedis pul Vascular exam: PRESENT: normal capillary refill Extremities exam: PRESENT: full ROM. ABSENT: calf tenderness, clubbing, pedal edema, +1 edema Neurological exam: PRESENT: alert, awake, oriented to person, oriented to place, oriented to time, oriented to situation, CN II-XII grossly intact. ABSENT: motor sensory deficit Psychiatric exam: PRESENT: appropriate affect, normal mood. ABSENT: homicidal ideation, suicidal ideation Skin exam: PRESENT: dry, intact, warm. ABSENT: cyanosis, rash Results Laboratory Results: 01/15/20 05:21 01/15/20 05:21 01/14/20 01/14/20 01/15/20 20:15 20:15 05:21 WBC 9.0 9.1 RBC 4.51 4.51 Hgb 11.4 L 11.4 L Hct 34.7 L 34.5 L MCV 77 L 76 L MCH 25.4 L 25.2 L MCHC 33.0 33.0 RDW 16.6 H 16.8 H Plt Count 274 257 Seg Neutrophils % 64.9 Sodium 135.8 L Potassium 4.5 Chloride 105 Carbon Dioxide 19 L Anion Gap 12 BUN 24 H Creatinine 0.97 Est GFR ( Amer) > 60 Glucose 156 H Calcium 9.7 Total Bilirubin 0.4 AST 25 Alkaline Phosphatase 48 Total Protein 8.0 Albumin 4.7 01/15/20 05:21 WBC RBC Hgb Hct MCV MCH MCHC RDW Plt Count Seg Neutrophils % Sodium 137.2 Potassium 4.1 Chloride 106 Carbon Dioxide 18 L Anion Gap 13 BUN 25 H Creatinine 1.11 Est GFR ( Amer) 59 L Glucose 170 H Calcium 9.5 Total Bilirubin AST Alkaline Phosphatase Total Protein Albumin 01/14/20 01/14/20 01/14/20 20:15 20:15 23:55 Creatine Kinase 61 CK-MB (CK-2) 1.74 Troponin I 0.046 1.000 Impressions: Chest X-Ray 01/14/20 00:00 IMPRESSION: Cardiomegaly with changes of mild pulmonary edema. Assessment and Plan - Diagnosis (1) Atrial fibrillation with rapid ventricular response Is this a current diagnosis for this admission?: Yes Plan: Patient is admitted to the medical floor on continuous cardiac telemetry. She became rate controlled. Oral diltiazem. Currently on diltiazem 30 mg every 6 hours. Resumed home dose Eliquis. Cardiology consulted. (2) Elevated troponin Is this a current diagnosis for this admission?: Yes Plan: Associated with atypical chest pain following episode of atrial fibrillation RVR. Possible troponin leak related to RVR and or hypertensive urgency. Troponins continue to trend upward; 0.046-> 1.0-> 1.2 Monitor on telemetry; no acute changes noted. Continue to monitor on telemetry. Continue home dose Eliquis. Continue daily statin therapy. Cardiology is consulted. Continue to trend troponins. (3) Hypertensive urgency Is this a current diagnosis for this admission?: Yes Plan: Blood pressures remain elevated; 182/63 Improved from 200/120 Continue diltiazem as mentioned above. Resume home dose carvedilol and isosorbide. IV hydralazine as needed for blood pressure control. (4) Diabetes Qualifiers: Diabetes mellitus type: type 2 Diabetes mellitus alf insulin use: without alf use Diabetes mellitus complication status: without complication Qualified Code(s): E11.9 - Type 2 diabetes mellitus without complications Is this a current diagnosis for this admission?: Yes Plan: Holding oral medications while admitted. Patient is placed on a consistent carb/cardiac diet. Accu-Cheks before meals and at bedtime with Humalog for sliding scale coverage. Hypoglycemia protocol in place. (5) Dyslipidemia Is this a current diagnosis for this admission?: Yes Plan: Continue atorvastatin (6) Atypical chest pain Is this a current diagnosis for this admission?: Yes Plan: Continue antihypertensives, including isosorbide, as above. Continue home dose Eliquis Continue daily atorvastatin Continue to trend troponins Further risk stratification with hemoglobin A1c and lipid panel Cardiology consultation Remaining evaluation and management as above. - Time Time Spent with patient: 35 or more minutes Medications reviewed and adjusted accordingly: Yes Anticipated discharge: Home Within: within 48 hours
[2020-01-15] MEDS ORDERED: (PENDING PHARMACY ID) (Carvedilol [Carvedilol] 25 MG) PO SCH (18:00)
[2020-01-15] MEDS: CARVEDILOL 12.5 MG TABLET PO SCH (21:46)
[2020-01-15] MEDS: APIXABAN 5 MG TABLET PO SCH (21:46)
[2020-01-15] MEDS ORDERED: ATORVASTATIN CALCIUM 10 MG TABLET PO SCH (22:00)
[2020-01-15] MEDS ORDERED: ATORVASTATIN CALCIUM 40 MG TABLET PO SCH (22:00)
[2020-01-16] MEDS: DILTIAZEM HCL 30 MG TABLET PO SCH ×2 (00:15→05:12)
[2020-01-16 06:43] LABS: HEMATOCRIT 31.2 % (36.0-47.0); HEMOGLOBIN 10.3 g/dL (12.0-15.5); MEAN CORPUSCULAR HEMOGLOBIN 25.5 pg (27.0-33.4); MEAN CORPUSCULAR VOLUME 77 fl (80-97); PLATELET COUNT 250 10^3/uL (150-450); RED BLOOD COUNT 4.03 10^6/uL (3.72-5.28); RED CELL DISTRIBUTION WIDTH 16.7 % (11.5-14.0); WHITE BLOOD COUNT 7.2 10^3/uL (4.0-10.5)
[2020-01-16 07:06] LABS: ANION GAP 7 (5-19); BLOOD UREA NITROGEN 20 mg/dL (7-20); CARBON DIOXIDE 20 mmol/L (22-30); CHLORIDE 111 mmol/L (98-107); CHOLESTEROL 157.44 mg/dL (0-200); GLUCOSE 167 mg/dL (75-110); POTASSIUM 4.3 mmol/L (3.6-5.0); TRIGLYCERIDES 167 mg/dL (<150)
[2020-01-16 07:16] LABS: DIRECT LDL 103 mg/dL (<100)
[2020-01-16 07:19] LABS: VLDL CHOLESTEROL 33.4 mg/dL (10-31)
[2020-01-16] MEDS: INSULIN LISPRO 100 UNIT/ML 3 ML VIAL SUBCUT SCH ×2 (07:52→12:07)
[2020-01-16] MEDS ORDERED: ISOSORBIDE MONONITRATE 30 MG TAB.ER.24H PO SCH (08:00)
--- NOTE | 2020-01-16 08:31 | PDOC CONSULTATION ---
Consultation Consult Date: 01/16/20 Attending physician:: JEFF ANDERSON Provider Consulted: CYNTHIA OROZCO Consult reason:: CP History of Present Illness Admission Date/PCP: 01/14/20 23:48 GOMEZ LEONG History of Present Illness: 69 year old female patient with a history of hypertension, hyperlipidemia, paroxysmal atrial fibrillation, type HTN, HLD, A fib, CAD with x3 stents, and triple CABG in 2016 brought in by E2 diabetes, coronary artery disease status post PCI with 3 stents in 2010 followed by two-vessel CABG in 2016 at [facility] who is consulted to our service for evaluation of chest pain. The patient was brought to our emergency room yesterday by EMS after experiencing chest pain. The patient received x2 0.4 mg SL Nitroglycerin from EMS with mild relief. She was also found to be in A fib on the monitor with a heart rate in the 120s with EMS. This morning she described her pain as a sharp discomfort, localized to the right upper chest, radiating to the back, associated with shortness of breath, lasting anywhere from 30 to 60 minutes, usually recurring at rest and not triggered by performing her regular ADLs and house chores. She had been evaluated by Dr. Garcia approximately 1 year ago at which point, per her report, she was found to be stable. This morning she is found eating breakfast but last night she did have more chest pain, per her report no medications were given. She denies associated palpitations, diaph oresis, syncope and presyncope. Her telemetry shows sinus bradycardia, sinus rhythm and at least 2 sinus pauses. There was no evidence of significant ventricular dysrhythmias. Physical exam on 01/16/2020: GENERAL: Pleasant and conversational. Oriented x3 with normal mood. Not in acute distress. Well groomed and well developed. HEENT: Normocephalic, atraumatic. Pupils equal. Sclerae anicteric. Oropharynx moist. NECK: No JVD. No carotid bruits. LUNGS: Coarse breath sounds bilaterally. Normal respiratory effort without the use of accessory muscles or intercostal retractions. CARDIOVASCULAR: Regular rate and rhythm, normal S1 and S2 without murmurs, rubs, or gallops. PMI not displaced. ABDOMEN: No masses or tenderness to palpation. No bruit. No splenomegaly or hepatomegaly. No abdominal aorta bruit noted. EXTREMITIES: No edema, no cyanosis, no clubbing. +2 pulses femoral and pedal pulses bilaterally. SKIN: No lesions or rashes. MUSCULOSKELETAL: No chest tenderness to palpation. NEUROLOGIC: Nonfocal. No gross sensory or motor deficits bilateral upper or lower extremities. Past Medical History Cardiac Medical History: Reports: Atrial Fibrillation, Coronary Artery Disease, Hyperlipidema, Hypertension Endocrine Medical History: Reports: Diabetes Mellitus Type 2 Psychiatric Medical History: Denies: Depression Past Surgical History Past Surgical History: Reports: Cholecystectomy, Coronary Artery Bypass Graft - tripple vessel, Coronary Stent - 3 stents, Hysterectomy Social History Smoking Status: Never Smoker Frequency of Alcohol Use: None Hx Recreational Drug Use: No Drugs: None Hx Prescription Drug Abuse: No Family History Family History: Reviewed & Not Pertinent, CVA Parental Family History Reviewed: Yes Children Family History Reviewed: Yes Sibling(s) Family History Reviewed.: Yes Medication/Allergy Home Medications: Metformin HCl [Glucophage] 1,000 mg PO BID 09/08/17 Apixaban [Eliquis 5 mg Tablet] 5 mg PO Q12 #60 tablet 09/12/17 Carvedilol 25 mg PO BID 01/15/20 Ibuprofen [Motrin 800 mg Tablet] 800 mg PO Q8HP PRN 01/15/20 Insulin Glargine,Hum.rec.anlog [Basaglar Kwikpen U-100] 22 unit SQ QHS 01/15/20 Isosorbide Mononitrate [Imdur 30 mg Tablet.er] 30 mg PO QAM 01/15/20 Lisinopril [Zestril] 40 mg PO DAILY 01/15/20 Pravastatin Sodium 40 mg PO DAILY 01/15/20 Allergies/Adverse Reactions: No Known Allergies Allergy (Verified 05/13/18 13:24) Physical Exam Vital Signs: Temp Pulse Resp BP Pulse Ox 98.8 F 77 17 136/53 H 100 01/15/20 23:35 01/16/20 02:00 01/15/20 23:35 01/15/20 23:35 01/15/20 23:35 Intake & Output 01/15/20 01/16/20 01/17/20 06:59 06:59 06:59 Intake Total 260 1945 Balance 260 1945 Weight 57.1 kg 57.1 kg Results Laboratory Results: 01/16/20 06:02 01/16/20 06:02 01/16/20 01/16/20 06:02 06:02 WBC 7.2 RBC 4.03 Hgb 10.3 L Hct 31.2 L MCV 77 L MCH 25.5 L MCHC 33.0 RDW 16.7 H Plt Count 250 Sodium 138.1 Potassium 4.3 Chloride 111 H Carbon Dioxide 20 L Anion Gap 7 BUN 20 Creatinine 0.80 Est GFR ( Amer) > 60 Glucose 167 H Calcium 9.0 Triglycerides 167 H Cholesterol 157.44 LDL Cholesterol Direct 103 H VLDL Cholesterol 33.4 H HDL Cholesterol 30 L 01/14/20 01/14/20 01/14/20 20:15 20:15 23:55 Creatine Kinase 61 CK-MB (CK-2) 1.74 Troponin I 0.046 1.000 01/15/20 01/15/20 01/16/20 16:07 18:53 00:28 Creatine Kinase CK-MB (CK-2) Troponin I 1.200 0.897 1.120 01/16/20 06:02 Creatine Kinase CK-MB (CK-2) Troponin I 0.932 Impressions: Chest X-Ray 01/14/20 00:00 IMPRESSION: Cardiomegaly with changes of mild pulmonary edema. 01/16/20 06:02 01/16/20 06:02 MCV 77 fl (80-97) L 01/16/20 06:02 MCH 25.5 pg (27.0-33.4) L 01/16/20 06:02 MCHC 33.0 g/dL (32.0-36.0) 01/16/20 06:02 RDW 16.7 % (11.5-14.0) H 01/16/20 06:02 Seg Neutrophils % 64.9 % (42-78) 01/14/20 20:15 Chloride 111 mmol/L (98-107) H 01/16/20 06:02 Carbon Dioxide 20 mmol/L (22-30) L 01/16/20 06:02 Anion Gap 7 (5-19) 01/16/20 06:02 Est GFR ( Amer) > 60 (>60) 01/16/20 06:02 Glucose 167 mg/dL (75-110) H 01/16/20 06:02 Calcium 9.0 mg/dL (8.4-10.2) 01/16/20 06:02 Total Bilirubin 0.4 mg/dL (0.2-1.3) 01/14/20 20:15 AST 25 U/L (14-36) 01/14/20 20:15 Alkaline Phosphatase 48 U/L (38-126) 01/14/20 20:15 Total Protein 8.0 g/dL (6.3-8.2) 01/14/20 20:15 Albumin 4.7 g/dL (3.5-5.0) 01/14/20 20:15 Triglycerides 167 mg/dL (<150) H 01/16/20 06:02 Cholesterol 157.44 mg/dL (0-200) 01/16/20 06:02 LDL Cholesterol Direct 103 mg/dL (<100) H 01/16/20 06:02 VLDL Cholesterol 33.4 mg/dL (10-31) H 01/16/20 06:02 HDL Cholesterol 30 mg/dL (>40) L 01/16/20 06:02 01/14/20 01/14/20 01/14/20 20:15 20:15 23:55 Creatine Kinase 61 CK-MB (CK-2) 1.74 Troponin I 0.046 1.000 01/15/20 01/15/20 01/16/20 16:07 18:53 00:28 Creatine Kinase CK-MB (CK-2) Troponin I 1.200 0.897 1.120 01/16/20 06:02 Creatine Kinase CK-MB (CK-2) Troponin I 0.932 Current Medication List Generic Name Dose Route Start Last Admin Trade Name Cynthia PRN Reason Stop Dose Admin Apixaban 5 mg 01/15/20 22:00 01/15/20 21:46 Eliquis 5 Mg Tablet PO 02/14/20 21:59 5 mg Q12 DANNY Administration Atorvastatin Calcium 40 mg 01/15/20 22:00 01/15/20 21:46 Lipitor 40 Mg Tablet PO 02/14/20 21:59 40 mg QHS DANNY Administration Carvedilol 25 mg 01/15/20 22:00 01/15/20 21:46 Coreg 12.5 Mg Tablet PO 02/14/20 21:59 25 mg Q12 DANNY Administration Dextrose 12.5 gm 01/15/20 09:34 Dextrose Inj 50% Syringe (25 Gm/50 Ml) IV 02/14/20 09:33 PRN PRN FOR BG 50-69 IN ALERT PATIENT Protocol Dextrose 25 gm 01/15/20 09:34 Dextrose Inj 50% Syringe (25 Gm/50 Ml) IV 02/14/20 09:33 PRN PRN PER PROTOCOL Protocol Diltiazem HCl 30 mg 01/15/20 00:00 01/16/20 05:12 Cardizem 30 Mg Tablet PO 02/14/20 00:00 30 mg Q6 DANNY Administration Glucagon 1 mg 01/15/20 09:34 Glucagen Inj 1 Mg Vial IM 02/14/20 09:33 PRN PRN Evaluate for BG < 70 Protocol Glucose 15 gm 01/15/20 09:34 Glutose 40% Gel 15 Gm Tube PO 02/14/20 09:33 PRN PRN FOR BG 50-69 IN ALERT PATIENT Protocol Glucose 30 gm 01/15/20 09:34 Glutose 40% Gel 15 Gm Tube PO 02/14/20 09:33 PRN PRN FOR BG < 50 IN ALERT PATIENT Protocol Hydralazine HCl 20 mg 01/14/20 23:41 01/15/20 11:50 Apresoline Inj/Pf 20 Mg/1 Ml Sdv IV 02/13/20 23:40 20 mg Q3HP PRN Administration Give For Sbp >160 / Dbp >100 Insulin Human Lispro 0 - 12 unit 01/15/20 11:00 01/15/20 21:45 Humalog Insulin 100 Unit/1 Ml 3 Ml Vial SUBCUT 02/14/20 10:59 Not Given ACHS [facility] Protocol Isosorbide Mononitrate 30 mg 01/16/20 08:00 Imdur 30 Mg Tablet.Er PO 02/15/20 07:59 [facility] [facility] [place] Medications Generic Name Dose Route Start Last Admin Trade Name Freq PRN Reason Stop Dose Admin Atorvastatin Calcium 10 mg 01/15/20 22:00 Lipitor 10 Mg Tablet PO 02/14/20 [facility]:[address] [facility] [facility] Dilt[facility]em HCl 10 mg 01/14/20 22:21 01/14/20 22:56 Cardizem Inj 25 Mg/5 Ml Vial IV 01/14/20 22:22 10 mg NOW ONE Administration Enalaprilat 0.625 mg 01/14/20 21:40 01/14/20 21:58 Vasotec Inj/Pf 1.25 Mg/1 Ml Sdv IV 01/14/20 21:41 0.625 mg NOW ONE Administration Furosemide 40 mg 01/14/20 21:40 01/14/20 21:58 Lasix Inj/Pf 40 Mg/4 Ml Sdv IV 01/14/20 21:41 40 mg NOW ONE Administration Sodium Chloride 1,000 mls @ 100 mls/hr 01/15/20 16:44 01/16/20 03:53 Nacl 0.9% 1000 Ml Iv Soln IV 01/16/20 02:43 Infused CONTINUOUS PRN Infusion THIS MED IS NOT "PRN" Nitroglycerin 1 gm 01/14/20 21:20 01/14/20 21:34 Nitrol 2% Ointment 1gm Packet TP 01/14/20 21:21 1 gm NOW ONE Administration Assessment & Plan - Diagnosis (1) NSTEMI (non-ST elevated myocardial infarction) Plan: The patient has a significant coronary artery disease history as described above and presented to the emergency room via EMS with atypical chest pain, rapid atrial fibrillation and hypertensive urgency with systolic blood pressures in the 200 mmHg range. Her cardiac troponin is positive and, whether or not this represents a type II MA versus an acute coronary syndrome, is unclear at this point however she does have evidence of mild pulmonary edema on chest x-ray and continues to have atypical chest pain that she states in the past had been alleviated by nitroglycerin. Recommendations: -Low-fat/low-cholesterol diet. -Discontinue Cardizem p.o. -Sublingual nitroglycerin as needed for chest pain. -Increase Lipitor to 80 mg daily. -Add baby aspirin daily. -Start Plavix 75 mg daily. -Discontinue nitroglycerin paste. -Continue with cardiac telemetry. -Transfer to a tertiary hospital for further management to include invasive assessment with [facility] given her recurrence of chest pain. (2) Atrial fibrillation with rapid ventricular response Is this a current diagnosis for this admission?: Yes Plan: The patient converted spontaneously to normal sinus rhythm. She is anticoagulated with Eliquis. Recommendations: -Discontinue Cardizem p.o. -Continue with anticoagulation for now. -Continue with cardiac telemetry. (3) CHF (congestive heart failure) Qualifiers: Heart failure type: other Qualified Code(s): I50.9 - Heart failure, unspecified Is this a current diagnosis for this admission?: Yes Plan: The patient is not known to have heart failure at least by history however she has been admitted with mild pulmonary edema on chest x-ray. She is essentially asymptomatic this morning. I am really concerned about this new finding particularly in a patient with uncontrolled cardiovascular risk factors and significant history of cardiovascular disease. Her heart failure may represent the sequela of an acute coronary syndrome given her elevated troponins. Recommendations: -Discontinue Cardizem. -Continue with Coreg at current doses for now. -Transfer to a tertiary center for [facility]. (4) Hypertensive urgency Is this a current diagnosis for this admission?: Yes Plan: The patient does have a history of hypertension. She is only on Coreg 12.5 mg twice daily. Her blood pressure today, although not at goal, is improved. Recommendations: -I will defer further management to the receiving hospital once she is transferred. (5) Dyslipidemia Is this a current diagnosis for this admission?: Yes Plan: Her most recent LDL is above goal which I suspect is secondary to dietary i ndiscretions. Recommendations: -Increase atorvastatin to 80 mg daily. -Recheck LFTs and fasting lipid panel with direct LDL in 6 weeks.
[2020-01-16] MEDS ORDERED: (PENDING PHARMACY ID) (Pravastatin Sodium [Pravastatin Sodium] 40 MG) PO SCH (10:00)
[2020-01-16] MEDS ORDERED: CLOPIDOGREL BISULFATE 75 MG TABLET PO SCH (10:00)
[2020-01-16] MEDS ORDERED: ASPIRIN 81 MG TABLET, ENT COATED PO SCH (10:00)
--- NOTE | 2020-01-16 10:39 | PDOC TRANSFER SUMMARY ---
General Admission Date/PCP: 01/14/20 23:48 ARIANE ALWES, [employer] Admission Date: 01/14/20 Transfer Date: 01/16/20 Accepting Facility: [facility] Accepting Physician: Dr. Jim Macdonald Resuscitation Status: Full Code - Transfer Medications Home Medications: Metformin HCl [Glucophage] 1,000 mg PO BID 09/08/17 Carvedilol 25 mg PO BID 01/15/20 Ibuprofen [Motrin 800 mg Tablet] 800 mg PO Q8HP PRN 01/15/20 Insulin Glargine,Hum.rec.anlog [Basaglar Kwikpen U-100] 22 unit SQ QHS 01/15/20 Isosorbide Mononitrate [Imdur 30 mg Tablet.er] 30 mg PO QAM 01/15/20 Lisinopril [Zestril] 40 mg PO DAILY 01/15/20 Pravastatin Sodium 40 mg PO DAILY 01/15/20 Transfer Medications: Current Medications Apixaban (Eliquis 5 Mg Tablet) 5 mg PO Q12 DANNY Stop: 02/14/20 21:59 Last Admin: 01/15/20 21:46 Dose: 5 mg Documented by: Aspirin (Ecotrin 81 Mg Ec Tablet) 81 mg PO DAILY DANNY Stop: 02/15/20 09:59 Atorvastatin Calcium (Lipitor 80 Mg Tablet) 80 mg PO QHS DANNY Stop: 02/15/20 21:59 Carvedilol (Coreg 12.5 Mg Tablet) 25 mg PO Q12 DANNY Stop: 02/14/20 21:59 Last Admin: 01/15/20 21:46 Dose: 25 mg Documented by: Clopidogrel Bisulfate (Plavix 75 Mg Tablet) 75 mg PO DAILY DANNY Stop: 02/15/20 09:59 Dextrose (Dextrose Inj 50% Syringe (25 Gm/50 Ml)) 12.5 gm IV PRN PRN; Protocol PRN Reason: FOR BG 50-69 IN ALERT PATIENT Stop: 02/14/20 09:33 Dextrose (Dextrose Inj 50% Syringe (25 Gm/50 Ml)) 25 gm IV PRN PRN; Protocol PRN Reason: PER PROTOCOL Stop: 02/14/20 09:33 Glucagon (Glucagen Inj 1 Mg Vial) 1 mg IM PRN PRN; Protocol PRN Reason: Evaluate for BG < 70 Stop: 02/14/20 09:33 Glucose (Glutose 40% Gel 15 Gm Tube) 15 gm PO PRN PRN; Protocol PRN Reason: FOR BG 50-69 IN ALERT PATIENT Stop: 02/14/20 09:33 Glucose (Glutose 40% Gel 15 Gm Tube) 30 gm PO PRN PRN; Protocol PRN Reason: FOR BG < 50 IN ALERT PATIENT Stop: 02/14/20 09:33 Hydralazine HCl (Apresoline Inj/Pf 20 Mg/1 Ml Sdv) 20 mg IV Q3HP PRN PRN Reason: Give For Sbp >160 / Dbp >100 Stop: 02/13/20 23:40 Last Admin: 01/15/20 11:50 Dose: 20 mg Documented by: Insulin Human Lispro (Humalog Insulin 100 Unit/1 Ml 3 Ml Vial) 0 - 12 unit SUBCUT [facility]; Protocol Stop: 02/14/20 10:59 Last Admin: 01/16/20 07:52 Dose: 2 unit Documented by: Isosorbide Mononitrate (Imdur 30 Mg Tablet.Er) 30 mg PO [facility] Stop: 02/15/20 07:59 Last Admin: 01/16/20 07:52 Dose: 30 mg Documented by: - Allergies Allergies/Adverse Reactions: No Known Allergies Allergy (Verified 05/13/18 13:24) - Diet/Activity Discharge Diet: Other (Comments) - NPO until evaluated by cardiology Discharge Activity: Bedrest Hospital Course Hospital Course: Ladi Guillen is a 69-year-old female with PMH significant for A. fib, HTN, CAD (s/p PCI x3 and CABG x3 in 2016), and DM II, who presented to the ED who prese nted to the ED on 01/14/2020 with complaints of chest discomfort and palpitations. This had been ongoing for several hours. Additionally, the patient states that recently she has noticed that when she does minimal activity she has to stop 2/2 feeling short of breath. In the ED, the patient was found to be in A. fib with RVR and also found to have a significantly elevated SBP with readings greater than 200. She was started on IV diltiazem and ultimately converted to sinus rhythm. Her BP improved and she was started back on her home medications. She was transitioned to oral diltiazem however, after being seen by cardiology this was stopped. The patient's troponin was slightly elevated a nd continued to rise at the time of this dictation (0.92->1.12). 01/16/2020 the patient was seen by cardiology. They made recommendations to stop her oral diltiazem, add low-dose aspirin and clopidogrel, increase atorvastatin, stop Nitropaste, and pursue transfer to tertiary care facility where patient could be evaluated for cardiac catheterization. Of note, the patient was seen in the past at [facility] however, a bed was not readily available at this facility and she was accepted at [facility]. At the time of this dictation the patient was free of chest pain and SOB. Physical Exam Vital Signs: Temp Pulse Resp BP Pulse Ox 99.1 F 63 17 148/52 H 97 01/16/20 08:20 01/16/20 08:20 01/16/20 08:20 01/16/20 08:20 01/16/20 08:20 Intake & Output 01/15/20 01/16/20 01/17/20 06:59 06:59 06:59 Intake Total 260 1945 240 Balance 260 1945 240 Weight 57.1 kg 57.1 kg General appearance: PRESENT: no acute distress, cooperative, well-developed, wel l-nourished Head exam: PRESENT: atraumatic, normocephalic Eye exam: PRESENT: conjunctiva pink Mouth exam: PRESENT: moist, tongue midline Neck exam: PRESENT: full ROM. ABSENT: JVD Respiratory exam: PRESENT: symmetrical, unlabored, other - Breath sounds coarse throughout with fine crackles noted at bases bilaterally. ABSENT: accessory muscle use Cardiovascular exam: PRESENT: RRR, +S1, +S2, other - This rhythm on telemetry Pulses: PRESENT: normal carotid pulses, normal radial pulses Vascular exam: PRESENT: normal capillary refill GI/Abdominal exam: PRESENT: normal bowel sounds, soft. ABSENT: distended, tenderness Rectal exam: PRESENT: deferred Extremities exam: PRESENT: full ROM. ABSENT: calf tenderness, pedal edema Musculoskeletal exam: PRESENT: full ROM Neurological exam: PRESENT: alert, awake, oriented to person, oriented to place, oriented to time, oriented to situation, CN II-XII grossly intact. ABSENT: motor sensory deficit Psychiatric exam: PRESENT: appropriate affect, normal mood. ABSENT: agitated, anxious Skin exam: PRESENT: dry, warm Results Laboratory Results: 01/16/20 06:02 01/16/20 06:02 01/16/20 01/16/20 06:02 06:02 WBC 7.2 RBC 4.03 Hgb 10.3 L Hct 31.2 L MCV 77 L MCH 25.5 L MCHC 33.0 RDW 16.7 H Plt Count 250 Sodium 138.1 Potassium 4.3 Chloride 111 H Carbon Dioxide 20 L Anion Gap 7 BUN 20 Creatinine 0.80 Est GFR ( Amer) > 60 Glucose 167 H Calcium 9.0 Triglycerides 167 H Cholesterol 157.44 LDL Cholesterol Direct 103 H VLDL Cholesterol 33.4 H HDL Cholesterol 30 L 01/14/20 01/14/20 01/14/20 20:15 20:15 23:55 Creatine Kinase 61 CK-MB (CK-2) 1.74 Troponin I 0.046 1.000 01/15/20 01/15/20 01/16/20 16:07 18:53 00:28 Creatine Kinase CK-MB (CK-2) Troponin I 1.200 0.897 1.120 01/16/20 06:02 Creatine Kinase CK-MB (CK-2) Troponin I 0.932 Impressions: Chest X-Ray 01/14/20 00:00 IMPRESSION: Cardiomegaly with changes of mild pulmonary edema. Plan Discharge Plan: Patient has known CAD with multiple cardiac interventions in the past. She was evaluated by cardiology and it was felt that she would be better served in a tertiary care facility where cardiac catheterization was available. She will be transferred to [facility] under the care of Dr. Jim Robertson. At the time of discharge patient was in adequately stable condition. Time Spent: Greater than 30 Minutes
[2020-01-16] MEDS: CARVEDILOL 12.5 MG TABLET PO SCH (10:45)
[2020-01-16] MEDS: APIXABAN 5 MG TABLET PO SCH (10:45)
[2020-01-16 12:13] VITALS: BP 146/47
[2020-01-16] MEDS ORDERED: ATORVASTATIN CALCIUM 80 MG TABLET PO SCH (22:00)
== END 2020-01-16 12:22 | disposition short-term general hospital (02) | DRG 281 ==
LOC: ER 20:01 → OBSVTOIN 23:48 → EH 23:48 → 4S 01-15 01:10
PROVIDERS: ADMIT Family Medicine; ATTEND Nurse Practitioner
DX: I48.0 Paroxysmal atrial fibrillation (principal); I21.4 Non-ST elevation (NSTEMI) myocardial infarction; J81.1 Chronic pulmonary edema; I11.0 Hypertensive heart disease with heart failure; I50.9 Heart failure, unspecified; Z95.1 Presence of aortocoronary bypass graft; E78.5 Hyperlipidemia, unspecified; I16.0 Hypertensive urgency; I25.10 Atherosclerotic heart disease of native coronary artery without angina pectoris; E11.9 Type 2 diabetes mellitus without complications; R00.1 Bradycardia, unspecified; Z79.82 Long term (current) use of aspirin; Z79.899 Other long term (current) drug therapy; Z79.01 Long term (current) use of anticoagulants; Z79.4 Long term (current) use of insulin; Z95.5 Presence of coronary angioplasty implant and graft; Z83.3 Family history of diabetes mellitus; Z82.49 Family history of ischemic heart disease and other diseases of the circulatory system; Z83.42 Family history of familial hypercholesterolemia
CPT/HCPCS: 36415; 71046; 80048; 80053; 80061; 82550; 82553; 82962; 83036; 84484; 85025; 85027; 93005; 93010; 96374; 96375; 99291; J0360; J1815; J1940; J3490; J7030

== ENCOUNTER 2020-02-08 16:40 | Inpatient (IN) | payer BC, MEDICARE ==
--- NOTE | 2020-02-08 16:49 | ER Document Report ---
ED General - General Chief Complaint: Shortness Of Breath Stated Complaint: SHORTNESS OF BREATH Time Seen by Provider: 02/08/20 16:48 Primary Care Provider: ARIANE CUNNINGHAM FNP-C [Primary Care Provider] - Follow up as needed TRAVEL OUTSIDE OF THE [place] IN LAST 30 DAYS: No - HPI Notes: 69-year-old female presents with shortness of breath. Patient states she had onset of sudden shortness of breath around noon today, states she was just sitting when occurred. Feels like she could not catch her breath. She feels that her heart rate is going very fast. She reports that her legs are swollen. She is having some right-sided chest pain that started with the rapid heartbeat. She states she was just discharged from [facility] recently for similar presentation. Diagnosed with A. fib with RVR. She states that she underwent cardiac cath, she does not remember the results, does not think any new stents were placed. She does not know her ejection fraction. She reports compliance with her medications, states she took her meds today. Denies fever, chills, cough, nausea or vomiting. - Related Data Allergies/Adverse Reactions: No Known Allergies Allergy (Verified 05/13/18 13:24) Past Medical History - Social History Smoking Status: Unknown if Ever Smoked Family History: Reviewed & Not Pertinent, CVA - Past Medical History Cardiac Medical History: Reports: Hx Atrial Fibrillation, Hx Coronary Artery Disease, Hx Hypercholesterolemia, Hx Hypertension Endocrine Medical History: Reports: Hx Diabetes Mellitus Type 2 Renal/ Medical History: Denies: Hx Peritoneal Dialysis Psychiatric Medical History: Denies: Hx Depression Past Surgical History: Reports: Hx Cardiac Surgery - stents x3, Hx Cholecystectomy, Hx Coronary Artery Bypass Graft - tripple vessel, Hx Coronary Stent - 3 stents, Hx Hysterectomy - Immunizations Hx Diphtheria, Pertussis, Tetanus Vaccination: Yes Review of Systems - Review of Systems Constitutional: denies: See HPI, Fever EENT: No symptoms reported Cardiovascular: Chest pain, Heart racing Respiratory: Short of breath. denies: Cough Gastrointestinal: denies: Abdominal pain, Diarrhea, Nausea, Vomiting Genitourinary: No symptoms reported Female Genitourinary: No symptoms reported Musculoskeletal: Leg swelling Skin: No symptoms reported Hematologic/Lymphatic: No symptoms reported Neurological/Psychological: No symptoms reported Physical Exam - Vital signs Vitals: Pulse Ox 98 02/08/20 16:41 Interpretation: Tachycardic. No: Hypotensive - General General appearance: Alert In distress: Mild - HEENT Head: Normocephalic, Atraumatic Extraocular movements intact: Yes Pupils: PERRL - Respiratory Respiratory status: Tachypnea Breath sounds: Rales - Cardiovascular Rhythm: Irregularly irregular, Tachycardia Normal capillary refill: Yes Notes: Midline sternal scar - Abdominal Distension: No distension Bowel sounds: Normal - Extremities General lower extremity: Edema - Neurological Neuro grossly intact: Yes Cognition: Normal Orientation: AAOx4 - Psychological Associated symptoms: Normal affect - Skin Skin Temperature: Warm Course - Re-evaluation Re-evalutation: 69-year-old female with onset of shortness of breath. Recent admission for A. fib with RVR, ultimately was transferred, had cath but she is unsure of the results though fairly certain she did not get new stents placed. On arrival she is in A. fib with RVR, will give IV Cardizem bolus for rate control. She has rales and lower extremity edema, I am concerned for a CHF exacerbation. Bedside ultrasound with B-lines. EKG has some ST segment depressions which I suspect is rate related. Less likely ACS at this point. 02/08/20 17:31 Heart rate has decreased to 70s following IV Cardizem. EKG obtained. 02/08/20 17:33 Chest x-ray reviewed, pulmonary edema, consistent with exam and ultrasound, will order Lasix 02/08/20 18:36 Marked elevation of BNP, trop leak as expected. I discussed with Dr. Garcia of cardiology for her acute CHF exacerbation. He agrees with admission to hospital service for diuresis. He will see tomorrow. 02/08/20 19:09 Into update patient. She reports she is feeling better, she has had good urine output in response to Lasix. Discussed with her need for admission. 02/08/20 19:37 Patient was discussed with the hospitalist admitting team, Dr. Sesay, he has agreed to admit the patient - Vital Signs Vital signs: Temp Pulse Resp BP Pulse Ox 98.0 F 17 130/87 H 96 02/08/20 17:06 02/08/20 18:16 02/08/20 18:16 02/08/20 18:16 - Laboratory Result Diagrams: 02/08/20 16:54 02/08/20 16:54 Laboratory results interpreted by me: 02/08/20 02/08/20 02/08/20 16:54 16:54 16:54 WBC 13.0 H Hgb 9.9 L Hct 32.1 L MCV 77 L MCH 23.9 L MCHC 30.9 L RDW 17.3 H Monocytes % (Manual) 2 L Eosinophils % (Manual) 20 H Absolute Eos (Manual) 2.6 H BUN 25 H Est GFR (MDRD) Non-Af 51 L Glucose 118 H Calcium 10.5 H NT-Pro-B Natriuret Pep 2220 H - Diagnostic Test Radiology reviewed: Image reviewed, Reports reviewed - EKG Interpretation by Me Additional EKG results interpreted by me: 02/08/20 17:03 EKG is interpreted by me. A. fib with R VR. There are ST segment depressions, suspect rate related. Appears similar to previous. 02/08/20 17:19 Repeat EKG obtained after Cardizem administration. Rate has significantly decreased, now 71. She remains in A. fib. ST depressions have improved. Procedures - Ultrasound/Bedside Ultrasound/Bedside Time completed: 17:10 Notes: 02/08/20 17:13 Bedside ultrasound of lungs performed, there are multiple B-lines in multiple douglass. Limited cardiac ultrasound obtained, moderate contractility, no large pericardial effusion. Discharge - Discharge Clinical Impression: Atrial fibrillation with RVR Acute CHF Qualifiers: Heart failure type: unspecified Qualified Code(s): I50.9 - Heart failure, unspecified Condition: Stable Disposition: ADMITTED INPATIENT Admitting Provider: Lázaro (Hospitalist) Unit Admitted: IMCU Referrals: ARIANE CUNNINGHAM FNP-C [Primary Care Provider] - Follow up as needed
[2020-02-08] MEDS ORDERED: DILTIAZEM HCL INJ 25 MG/5 ML VIAL IV ONE (16:57)
--- NOTE | 2020-02-08 17:12 | RADIOLOGY REPORT (SQ) ---
EXAM DESCRIPTION: CHEST SINGLE VIEW IMAGES COMPLETED DATE/TIME: 02/08/2020 4:51 pm REASON FOR STUDY: sob COMPARISON: 01/14/2020 EXAM PARAMETERS: NUMBER OF VIEWS: One view. TECHNIQUE: Single frontal radiographic view of the chest acquired. RADIATION DOSE: NA LIMITATIONS: None. FINDINGS: LUNGS AND PLEURA: Perihilar and bibasilar opacities. Small bilateral pleural effusions. No pneumothorax. MEDIASTINUM AND HILAR STRUCTURES: No masses. Contour normal. HEART AND VASCULAR STRUCTURES: Cardiomegaly with central vascular congestion. BONES: No acute findings. HARDWARE: Midline surgical changes. OTHER: No other significant finding. IMPRESSION: Constellation of findings consistent with CHF exacerbation. Superimposed infectious pro cess is not excluded. TECHNICAL DOCUMENTATION: JOB ID: [id number] [employer]- All Rights Reserved Reading location - IP/workstation name: [email or web address]
[2020-02-08 17:16] LABS: APPEARANCE,URINE CLEAR; BILIRUBIN,URINE NEGATIVE (NEGATIVE); COLOR,URINE COLORLESS; GLUCOSE, URINE NEGATIVE (NEGATIVE); KETONES,URINE NEGATIVE (NEGATIVE); LEUKOCYTE ESTERASE,URINE NEGATIVE (NEGATIVE); NITRITE,URINE NEGATIVE (NEGATIVE); PROTEIN,URINE NEGATIVE (NEGATIVE); URINE SPECIFIC GRAVITY 1.004; UROBILINOGEN,URINE NEGATIVE mg/dL (<2.0)
[2020-02-08 17:19] LABS: HEMATOCRIT 32.1 % (36.0-47.0); HEMOGLOBIN 9.9 g/dL (12.0-15.5); MEAN CORPUSCULAR HEMOGLOBIN 23.9 pg (27.0-33.4); MEAN CORPUSCULAR HGB CONC 30.9 g/dL (32.0-36.0); MEAN CORPUSCULAR VOLUME 77 fl (80-97); PLATELET COUNT 322 10^3/uL (150-450); RED BLOOD COUNT 4.15 10^6/uL (3.72-5.28); RED CELL DISTRIBUTION WIDTH 17.3 % (11.5-14.0)
[2020-02-08] MEDS ORDERED: FUROSEMIDE INJ/PF 40 MG/4 ML SDV IV ONE (17:34)
[2020-02-08 17:40] LABS: ALBUMIN 4.3 g/dL (3.5-5.0); ALKALINE PHOSPHATASE 62 U/L (38-126); ANION GAP 10 (5-19); ASPARTATE AMINO TRANSFERASE 21 U/L (14-36); BILIRUBIN,TOTAL 0.4 mg/dL (0.2-1.3); BLOOD UREA NITROGEN 25 mg/dL (7-20); CALCIUM 10.5 mg/dL (8.4-10.2); CARBON DIOXIDE 22 mmol/L (22-30); CHLORIDE 106 mmol/L (98-107); GLUCOSE 118 mg/dL (75-110); POTASSIUM 4.7 mmol/L (3.6-5.0); TOTAL PROTEIN 7.6 g/dL (6.3-8.2)
[2020-02-08 17:53] LABS: TROPONIN I 0.061 ng/mL
[2020-02-08 18:15] LABS: ABSOLUTE MONOCYTES # (MANUAL) 0.3 10^3/uL (0.1-1.4); ANISOCYTOSIS 1+; BASOPHILS % (MANUAL) 0 % (0-2); EOSINOPHILS % (MANUAL) 20 % (0-6); LYMPHOCYTES % (MANUAL) 23 % (13-45); MONOCYTES % (MANUAL) 2 % (3-13); PLATELET COMMENT ADEQUATE; SEGMENTED NEUTROPHILS % (MAN) 55 % (42-78); TOTAL CELLS COUNTED 100
[2020-02-08 18:16] LABS: HYPOCHROMASIA 1+; OVALOCYTES 2+
[2020-02-08 18:17] LABS: POLYCHROMASIA SLIGHT
[2020-02-08 18:18] LABS: SCHISTOCYTES SLIGHT
[2020-02-08 18:19] LABS: BURR CELLS SLIGHT; TARGET CELLS SLIGHT
--- NOTE | 2020-02-08 21:14 | PDOC H&P ---
History of Present Illness Admission Date/PCP: 02/08/20 20:14 ARIANE CUNNINGHAM, MAURO-C History of Present Illness: NANI OBRIEN is a 69 year old female with a history of atrial fibrillation who was sent for a heart cath at [facility] a few weeks ago and she does not recall any of the findings of the procedure but she does not think that they put any more stents in her. She said she got home from work this morning and she ate some food and then she started feeling short of breath. She says that since she left [place] for the heart cath she has had a little bit of swelling in her legs and feet. She has been able to perform all of her usual activities however. She said she felt like her heart was beating really fast. She came to the ER and was found to have a fast heart rate and was given some Cardizem and her heart rate is slowed down. Chest x-ray showed a little bit of bilateral pulmonary edema. She is not been having any fevers or cough. Past Medical History Cardiac Medical History: Reports: Atrial Fibrillation, Coronary Artery Disease, Hyperlipidema, Hypertension Endocrine Medical History: Reports: Diabetes Mellitus Type 2 Psychiatric Medical History: Denies: Depression Past Surgical History Past Surgical History: Reports: Cholecystectomy, Coronary Artery Bypass Graft - tripple vessel, Coronary Stent - 3 stents, Hysterectomy Social History Smoking Status: Unknown if Ever Smoked Frequency of Alcohol Use: None Hx Recreational Drug Use: No Drugs: None Hx Prescription Drug Abuse: No Family History Family History: Reviewed & Not Pertinent, CVA Parental Family History Reviewed: Yes Children Family History Reviewed: Yes Sibling(s) Family History Reviewed.: Yes Medication/Allergy Home Medications: Metformin HCl [Glucophage] 1,000 mg PO BID 09/08/17 Apixaban [Eliquis 5 mg Tablet] 5 mg PO Q12 #60 tablet 09/12/17 Carvedilol 25 mg PO BID 01/15/20 Ibuprofen [Motrin 800 mg Tablet] 800 mg PO Q8HP PRN 01/15/20 Insulin Glargine,Hum.rec.anlog [Basaglar Kwikpen U-100] 22 unit SQ QHS 01/15/20 Isosorbide Mononitrate [Imdur 30 mg Tablet.er] 30 mg PO QAM 01/15/20 Lisinopril [Zestril] 40 mg PO DAILY 01/15/20 Pravastatin Sodium 40 mg PO DAILY 01/15/20 Allergies/Adverse Reactions: No Known Allergies Allergy (Verified 05/13/18 13:24) Review of Systems All systems: reviewed and no additional remarkable complaints except as stated - All systems were reviewed and were negative except as noted in the HPI Physical Exam Vital Signs: Temp Pulse Resp BP Pulse Ox 97.8 F 17 130/87 H 96 02/08/20 20:10 02/08/20 18:16 02/08/20 18:16 02/08/20 18:16 Intake & Output 02/07/20 02/08/20 02/09/20 06:59 06:59 06:59 Weight 61.689 kg General appearance: PRESENT: no acute distress, cooperative, disheveled Head exam: PRESENT: atraumatic, normocephalic Eye exam: PRESENT: EOMI, PERRLA. ABSENT: conjunctival injection, nystagmus, scleral icterus Ear exam: PRESENT: normal external ear exam Mouth exam: PRESENT: moist, neck supple Teeth exam: PRESENT: poor dentation Throat exam: ABSENT: post pharyngeal erythema Neck exam: PRESENT: full ROM. ABSENT: carotid bruit, JVD, lymphadenopathy, meningismus, tenderness, thyromegaly Respiratory exam: PRESENT: crackles - Very faint bibasilar crackles, symmetrical, unlabored. ABSENT: accessory muscle use, chest wall tenderness, prolonged expiratory phas, rhonchi, tachypnea, wheezes Cardiovascular exam: PRESENT: irregular rhythm, +S1, +S2 Pulses: PRESENT: normal carotid pulses Vascular exam: PRESENT: normal capillary refill GI/Abdominal exam: PRESENT: normal bowel sounds, soft. ABSENT: distended, guarding, rebound, tenderness Extremities exam: PRESENT: pedal edema, +1 edema. ABSENT: clubbing Musculoskeletal exam: ABSENT: deformity, normal inspection Neurological exam: PRESENT: alert, awake, oriented to person, oriented to place, oriented to situation, CN II-XII grossly intact. ABSENT: motor sensory deficit Psychiatric exam: PRESENT: appropriate affect, normal mood Skin exam: PRESENT: dry, warm Results Laboratory Results: 02/08/20 16:54 02/08/20 16:54 02/08/20 02/08/20 02/08/20 16:54 16:54 16:54 WBC 13.0 H RBC 4.15 Hgb 9.9 L Hct 32.1 L MCV 77 L MCH 23.9 L MCHC 30.9 L RDW 17.3 H Plt Count 322 Seg Neutrophils % Not Reportable Sodium 138.4 Potassium 4.7 Chloride 106 Carbon Dioxide 22 Anion Gap 10 BUN 25 H Creatinine 1.07 Est GFR ( Amer) > 60 Glucose 118 H Calcium 10.5 H Magnesium 1.8 Total Bilirubin 0.4 AST 21 Alkaline Phosphatase 62 Total Protein 7.6 Albumin 4.3 Urine Color COLORLESS Urine Appearance CLEAR Urine pH 6.0 Ur Specific [place] 1.004 Urine Protein NEGATIVE Urine Glucose (UA) NEGATIVE Urine Ketones NEGATIVE Urine Blood NEGATIVE Urine Nitrite NEGATIVE Ur Leukocyte Esterase NEGATIVE Urine WBC (Auto) 0 Urine RBC (Auto) 0 02/08/20 16:54 Troponin I 0.061 NT-Pro-B Natriuret Pep 2220 H Impressions: Chest X-Ray 02/08/20 16:41 IMPRESSION: Constellation of findings consistent with CHF exacerbation. Superimposed infectious process is not excluded. Assessment and Plan - Diagnosis (1) Acute congestive heart failure Qualifiers: Heart failure type: unspecified Qualified Code(s): I50.9 - Heart failure, unspecified Is this a current diagnosis for this admission?: Yes Plan: We do not yet have the recent cath report but will try to obtain it. We will get an echocardiogram because the last one that we have is from over 2 years ago. We will put her on some IV Lasix. She is on Coreg and lisinopril. If her heart rate is not under control we may have to try to switch her Coreg over to Toprol-XL. Cardiology was called when she was in the ER and they are going to see her in consultation. (2) Atrial fibrillation with rapid ventricular response Is this a current diagnosis for this admission?: Yes Plan: She is on Eliquis and Coreg. If the Coreg does not control her heart rate then we may have to switch her to Toprol-XL. - Time Time Spent with patient: 35 or more minutes Anticipated Discharge Disposition: Home, Self Care Anticipated Discharge Timeframe: within 72 hours - Inpatient Certification Based on my medical assessment, after consideration of the patient's comorbidities, presenting symptoms, or acuity I expect that the services needed warrant INPATIENT care.: Yes I certify that my determination is in accordance with my understanding of Medicare's requirements for reasonable and necessary INPATIENT services [42 CFR 412.3e].: Yes Medical Necessity: Significant Comorbidiites Make Outpatient Treatment Too Risky, Need Close Monitoring Due to Risk of Patient Decompensation, Need For Continuous Telemetry Monitoring, Risk of Complication if Not Cared For in Hospital
[2020-02-08] MEDS ORDERED: DEXTROSE 40% GEL 15 GM TUBE PO PRN (22:30)
[2020-02-08] MEDS ORDERED: DEXTROSE 40% GEL 15 GM TUBE X 2 PO PRN (22:30)
[2020-02-08] MEDS ORDERED: DEXTROSE 50%-WATER SYRINGE 25 GM/50 ML DOSE IV PRN (22:30)
[2020-02-08] MEDS ORDERED: DEXTROSE 50%-WATER SYRINGE 12.5 GM/25 ML DOSE IV PRN (22:30)
[2020-02-08] MEDS ORDERED: GLUCAGON,HUMAN RECOMB 1 MG INJ IM PRN (22:30)
[2020-02-08] MEDS: FUROSEMIDE INJ/PF 20 MG/2 ML SDV IV SCH (23:17)
[2020-02-09] MEDS: FUROSEMIDE INJ/PF 20 MG/2 ML SDV IV SCH ×4 (06:17→22:36)
[2020-02-09 06:54] LABS: HEMATOCRIT 30.4 % (36.0-47.0); HEMOGLOBIN 9.7 g/dL (12.0-15.5); MEAN CORPUSCULAR HEMOGLOBIN 24.4 pg (27.0-33.4); MEAN CORPUSCULAR VOLUME 76 fl (80-97); PLATELET COUNT 304 10^3/uL (150-450); RED BLOOD COUNT 3.98 10^6/uL (3.72-5.28); RED CELL DISTRIBUTION WIDTH 17.3 % (11.5-14.0); WHITE BLOOD COUNT 9.2 10^3/uL (4.0-10.5)
[2020-02-09 07:25] LABS: ANION GAP 12 (5-19); BLOOD UREA NITROGEN 25 mg/dL (7-20); CALCIUM 10.8 mg/dL (8.4-10.2); CARBON DIOXIDE 24 mmol/L (22-30); CHLORIDE 104 mmol/L (98-107); GLUCOSE 118 mg/dL (75-110); POTASSIUM 4.1 mmol/L (3.6-5.0)
--- NOTE | 2020-02-09 07:35 | EKG REPORT ---
SEVERITY:- ABNORMAL ECG - ATRIAL FIBRILLATION ABNORMAL T, CONSIDER ISCHEMIA, LATERAL LEADS : Confirmed by: Kevin Garcia MD 09-Feb-2020 07:34:51
--- NOTE | 2020-02-09 07:36 | EKG REPORT ---
SEVERITY:- ABNORMAL ECG - ATRIAL FIBRILLATION ABNORMAL T, CONSIDER ISCHEMIA, LATERAL LEADS : Confirmed by: Kevin Garcia MD 09-Feb-2020 07:35:40
--- NOTE | 2020-02-09 07:36 | EKG REPORT ---
SEVERITY:- ABNORMAL ECG - ATRIAL FIBRILLATION REPOL ABNRM SUGGESTS ISCHEMIA, DIFFUSE LEADS : Confirmed by: Kevin Garcia MD 09-Feb-2020 07:35:50
[2020-02-09] MEDS: CARVEDILOL 12.5 MG TABLET PO SCH ×2 (09:26→22:37)
[2020-02-09] MEDS: APIXABAN 5 MG TABLET PO SCH ×2 (09:26→17:52)
[2020-02-09] MEDS ORDERED: DEXTROSE 40% GEL 15 GM TUBE PO PRN ×2 (09:52)
[2020-02-09] MEDS ORDERED: DEXTROSE 50%-WATER 25 GM/50 ML DISP.SYRIN IV PRN ×2 (09:52)
[2020-02-09] MEDS ORDERED: GLUCAGON,HUMAN RECOMB 1 MG INJ IM PRN (09:52)
--- NOTE | 2020-02-09 09:52 | PDOC PROGRESS REPORT ---
Subjective Progress Note for:: 02/05/20 Subjective:: 69 year old female with a history of atrial fibrillation who was sent for a heart cath at [facility] a few weeks ago and she does not recall any of the findings of the procedure but she does not think that they put any more stents in her. She said she got home from work this morning and she ate some food and then she started feeling short of breath. She says that since she left [place] for the heart cath she has had a little bit of swelling in her legs and feet. She has been able to perform all of her usual activities however. She said she felt like her heart was beating really fast. She came to the ER and was found to have a fast heart rate and was given some Cardizem and her heart rate is slowed down. Chest x-ray showed a little bit of bilateral pulmonary edema. She is not been having any fevers or cough. 02/[id number]-old female with history of cardiac cath few weeks ago as per her 3 stents were placed and she has also history of CABG, history of atrial fibrillation came to the emergency room with complaints of shortness of breath. She is also complaining of bilateral lower leg swelling. In the emergency room found to have an A. fib with RVR. She was started on a Cardizem drip which was discontinued later on. Patient is on Coreg 25 mg p.o. twice a day at home and also on Eliquis 5 mg p.o. twice daily. Plan is to continue Coreg 25 mg p.o. twice daily, Eliquis on consultation with Dr. Jose sandoval. is requested. Patient's partner integration planner is Dr. Galaviz but is not available this weekend. Patient is comfortably in the bed communicating well. Reason For Visit: AFIB,CHF Physical Exam Vital Signs: Temp Pulse Resp BP Pulse Ox 98.1 F 38 L 16 122/83 98 02/09/20 07:40 02/09/20 07:40 02/09/20 07:40 02/09/20 07:40 02/09/20 07:40 Intake & Output 02/08/20 02/09/20 02/10/20 06:59 06:59 06:59 Intake Total 200 Balance 200 Weight 61.5 kg General appearance: PRESENT: no acute distress, well-developed Head exam: PRESENT: atraumatic Eye exam: PRESENT: PERRLA Ear exam: PRESENT: normal external ear exam Mouth exam: PRESENT: neck supple Teeth exam: PRESENT: poor dentation Neck exam: PRESENT: JVD. ABSENT: carotid bruit, lymphadenopathy, thyromegaly Respiratory exam: PRESENT: decreased breath sounds Cardiovascular exam: PRESENT: irregular rhythm, tachycardia GI/Abdominal exam: PRESENT: normal bowel sounds, soft. ABSENT: distended, guarding, mass, organolmegaly, rebound, tenderness Rectal exam: PRESENT: deferred Extremities exam: PRESENT: full ROM. ABSENT: calf tenderness, clubbing, pedal edema Neurological exam: PRESENT: alert, awake, oriented to person, oriented to place, oriented to time, oriented to situation, CN II-XII grossly intact. ABSENT: motor sensory deficit Psychiatric exam: PRESENT: appropriate affect, normal mood. ABSENT: homicidal ideation, suicidal ideation Results Laboratory Results: 02/09/20 06:41 02/09/20 06:41 02/08/20 02/08/20 02/08/20 16:54 16:54 16:54 WBC 13.0 H RBC 4.15 Hgb 9.9 L Hct 32.1 L MCV 77 L MCH 23.9 L MCHC 30.9 L RDW 17.3 H Plt Count 322 Seg Neutrophils % Not Reportable Sodium 138.4 Potassium 4.7 Chloride 106 Carbon Dioxide 22 Anion Gap 10 BUN 25 H Creatinine 1.07 Est GFR ( Amer) > 60 Glucose 118 H Calcium 10.5 H Magnesium 1.8 Total Bilirubin 0.4 AST 21 Alkaline Phosphatase 62 Total Protein 7.6 Albumin 4.3 Urine Color COLORLESS Urine Appearance CLEAR Urine pH 6.0 Ur Specific [place] 1.004 Urine Protein NEGATIVE Urine Glucose (UA) NEGATIVE Urine Ketones NEGATIVE Urine Blood NEGATIVE Urine Nitrite NEGATIVE Ur Leukocyte Esterase NEGATIVE Urine WBC (Auto) 0 Urine RBC (Auto) 0 02/09/20 02/09/20 06:41 06:41 WBC 9.2 RBC 3.98 Hgb 9.7 L Hct 30.4 L MCV 76 L MCH 24.4 L MCHC 32.0 RDW 17.3 H Plt Count 304 Seg Neutrophils % Sodium 139.8 Potassium 4.1 Chloride 104 Carbon Dioxide 24 Anion Gap 12 BUN 25 H Creatinine 0.93 Est GFR ( Amer) > 60 Glucose 118 H Calcium 10.8 H Magnesium Total Bilirubin AST Alkaline Phosphatase Total Protein Albumin Urine Color Urine Appearance Urine pH Ur Specific [place] Urine Protein Urine Glucose (UA) Urine Ketones Urine Blood Urine Nitrite Ur Leukocyte Esterase Urine WBC (Auto) Urine RBC (Auto) 02/08/20 16:54 Troponin I 0.061 NT-Pro-B Natriuret Pep 2220 H Impressions: Chest X-Ray 02/08/20 16:41 IMPRESSION: Constellation of findings consistent with CHF exacerbation. Supe rimposed infectious process is not excluded. Assessment and Plan - Diagnosis (1) Acute congestive heart failure Qualifiers: Heart failure type: unspecified Qualified Code(s): I50.9 - Heart failure, unspecified Is this a current diagnosis for this admission?: Yes Plan: We do not yet have the recent cath report but will try to obtain it. We will get an echocardiogram because the last one that we have is from over 2 years ago. We will put her on some IV Lasix. She is on Coreg and lisinopril. If her heart rate is not under control we may have to try to switch her Coreg over to Toprol-XL. Cardiology was called when she was in the ER and they are going to see her in consultation. 02/09/2020-patient admitted with shortness of breath and bilateral pedal edema. Echocardiogram was requested. Plan is to continue Coreg, lisinopril, IV Lasix at this time. BNP at the time of admission is 2220. Chest x-ray indicated abo ve CHF exacerbation. Found to have a small bilateral pleural effusions and cardiomegaly with central vascular congestion. Probably patient has acute systolic heart failure. (2) Atrial fibrillation with rapid ventricular response Is this a current diagnosis for this admission?: Yes Plan: She is on Eliquis and Coreg. If the Coreg does not control her heart rate then we may have to switch her to Toprol-XL. 02/09/2020-patient is presently on Coreg 25 mg p.o. twice daily heart rate is around 100. To continue Eliquis at this time. Consultation with the cardiology is requested at this time. (3) Diabetes mellitus type 2 in obese Is this a current diagnosis for this admission?: No Plan: 02/09/2020-patient has history of type 2 diabetes mellitus on Lantus 25 units at night and metformin thousand milligrams p.o. twice daily. Plan is to hold metformin and to place her on insulin sliding scale before meals and at bedtime to continue Lantus 22 units at bedtime. (4) Hypertension Qualifiers: Hypertension type: essential hypertension Qualified Code(s): I10 - Essential (primary) hypertension Is this a current diagnosis for this admission?: No Plan: 02/09/2020-patient has history of chronic essential hypertension she is on lisino pril 40 mg p.o. daily, Coreg 25 mg p.o. twice daily at home. Plan is to resume the medications during the hospital stay. - Time Anticipated Discharge Disposition: Home, Self Care Anticipated Discharge Timeframe: within 72 hours
[2020-02-09] MEDS: ISOSORBIDE MONONITRATE 60 MG TAB.ER.24H PO SCH (10:42)
[2020-02-09] MEDS: INSULIN REG, HUMAN 100 UNIT/ML 3 ML VIAL (PYX) SUBCUT SCH ×3 (11:39→22:19)
[2020-02-10] MEDS: PREGABALIN 75 MG CAPSULE PO PRN ×3 (04:03→22:37)
[2020-02-10 05:19] LABS: ABSOLUTE BASOPHILS # (AUTO) 0.1 10^3/uL (0.0-0.2); ABSOLUTE EOSINOPHILS # (AUTO) 1.7 10^3/uL (0.0-0.6); ABSOLUTE LYMPHOCYTES (AUTO) 1.2 10^3/uL (0.5-4.7); ABSOLUTE MONOCYTES (AUTO) 0.6 10^3/uL (0.1-1.4); ABSOLUTE NEUT (AUTO) 6.5 10^3/uL (1.7-8.2); EOSINOPHILS % (AUTO) 16.9 % (0-6); HEMATOCRIT 28.8 % (36.0-47.0); HEMOGLOBIN 9.4 g/dL (12.0-15.5); LYMPHOCYTES % (AUTO) 11.7 % (13-45); MEAN CORPUSCULAR HEMOGLOBIN 24.6 pg (27.0-33.4); MEAN CORPUSCULAR HGB CONC 32.5 g/dL (32.0-36.0); MEAN CORPUSCULAR VOLUME 76 fl (80-97); MONOCYTES % (AUTO) 5.6 % (3-13); PLATELET COUNT 262 10^3/uL (150-450); RED BLOOD COUNT 3.81 10^6/uL (3.72-5.28); SEGMENTED NEUTROPHILS % (AUTO) 64.8 % (42-78); TOTAL CELLS COUNTED % (AUTO) 100 %; WHITE BLOOD COUNT 10.1 10^3/uL (4.0-10.5)
[2020-02-10 06:07] LABS: ANION GAP 15 (5-19); BLOOD UREA NITROGEN 25 mg/dL (7-20); CALCIUM 9.7 mg/dL (8.4-10.2); CARBON DIOXIDE 26 mmol/L (22-30); CHLORIDE 100 mmol/L (98-107); GLUCOSE 148 mg/dL (75-110); POTASSIUM 3.4 mmol/L (3.6-5.0)
[2020-02-10] MEDS: FUROSEMIDE INJ/PF 20 MG/2 ML SDV IV SCH ×3 (06:30→22:37)
[2020-02-10] MEDS ORDERED: MAGNESIUM OXIDE 400 MG TABLET PO ONE (07:19)
[2020-02-10] MEDS ORDERED: FUROSEMIDE INJ/PF 40 MG/4 ML SDV IV ONE (07:25)
--- NOTE | 2020-02-10 08:29 | PDOC PROGRESS REPORT ---
Subjective Progress Note for:: 02/10/20 Subjective:: 69 year old female with a history of atrial fibrillation who was sent for a heart cath at [facility] a few weeks ago and she does not recall any of the findings of the procedure but she does not think that they put any more stents in her. She said she got home from work this morning and she ate some food and then she started feeling short of breath. She says that since she left [place] for the heart cath she has had a little bit of swelling in her legs and feet. She has been able to perform all of her usual activities however. She said she felt like her heart was beating really fast. She came to the ER and was found to have a fast heart rate and was given some Cardizem and her heart rate is slowed down. Chest x-ray showed a little bit of bilateral pulmonary edema. She is not been having any fevers or cough. 02/09/[id number]-ndcf-old female with history of cardiac cath few weeks ago as per her 3 stents were placed and she has also history of CABG, history of atrial fibrillation came to the emergency room with complaints of shortness of breath. She is also complaining of bilateral lower leg swelling. In the emergency room found to have an A. fib with RVR. She was started on a Cardizem drip which was discontinued later on. Patient is on Coreg 25 mg p.o. twice a day at home and also on Eliquis 5 mg p.o. twice daily. Plan is to continue Coreg 25 mg p.o. twice daily, Eliquis on consultation with Dr. Jose sandoval. is requested. Patient's documentum consultant is Dr. Galaviz but is not available this weekend. Patient is comfortably in the bed communicating well. 02/[id number]-enlz-old female admitted with A. fib with RVR heart rate this arturo ng is 74 rate controlled A. fib. Patient is complaining of severe pain in both lower extremities secondary to diabetic neuropathy. Receiving Lyrica plan to start her on IV morphine 1 mg every 4 as needed for pain. BNP is more than 2400 given Lasix 40 mg IV 1 dose this morning. Reason For Visit: AFIB,CHF Physical Exam Vital Signs: Temp Pulse Resp BP Pulse Ox 98.2 F 74 18 136/46 H 98 02/10/20 03:18 02/10/20 03:18 02/10/20 03:18 02/10/20 03:18 02/10/20 03:18 Intake & Output 02/09/20 02/10/20 02/11/20 06:59 06:59 06:59 Intake Total 200 540 Balance 200 540 Weight 61.5 kg 60.1 kg General appearance: PRESENT: other - In moderate distress Head exam: PRESENT: atraumatic Eye exam: PRESENT: PERRLA Ear exam: PRESENT: normal external ear exam Mouth exam: PRESENT: neck supple Teeth exam: PRESENT: poor dentation Neck exam: ABSENT: carotid bruit, JVD, lymphadenopathy, thyromegaly Respiratory exam: PRESENT: decreased breath sounds Cardiovascular exam: PRESENT: bradycardia GI/Abdominal exam: PRESENT: normal bowel sounds, soft. ABSENT: distended, guarding, mass, organolmegaly, rebound, tenderness Rectal exam: PRESENT: deferred Extremities exam: PRESENT: full ROM. ABSENT: calf tenderness, clubbing, pedal edema Neurological exam: PRESENT: alert, awake, oriented to person, oriented to place, oriented to time, oriented to situation, CN II-XII grossly intact. ABSENT: motor sensory deficit Psychiatric exam: PRESENT: appropriate affect, normal mood. ABSENT: homicidal ideation, suicidal ideation Results Laboratory Results: 02/10/20 05:00 02/10/20 05:00 02/10/20 02/10/20 02/10/20 05:00 05:00 05:00 WBC 10.1 RBC 3.81 Hgb 9.4 L Hct 28.8 L MCV 76 L MCH 24.6 L MCHC 32.5 RDW 17.0 H Plt Count 262 Seg Neutrophils % 64.8 Sodium 140.7 Potassium 3.4 L Chloride 100 Carbon Dioxide 26 Anion Gap 15 BUN 25 H Creatinine 0.99 Est GFR ( Amer) > 60 Glucose 148 H Calcium 9.7 Magnesium 1.6 TSH 4.84 H 02/08/20 02/10/20 16:54 05:00 Troponin I 0.061 NT-Pro-B Natriuret Pep 2220 H 2460 H Impressions: Chest X-Ray 02/08/20 16:41 IMPRESSION: Constellation of findings consistent with CHF exacerbation. Superimposed infectious process is not excluded. Assessment and Plan - Diagnosis (1) Acute congestive heart failure Qualifiers: Heart failure type: unspecified Qualified Code(s): I50.9 - Heart failure, unspecified Is this a current diagnosis for this admission?: Yes Plan: We do not yet have the recent cath report but will try to obtain it. We will get an echocardiogram because the last one that we have is from over 2 years ago. We will put her on some IV Lasix. She is on Coreg and lisinopril. If her heart rate is not under control we may have to try to switch her Coreg over to Toprol-XL. Cardiology was called when she was in the ER and they are going to see her in consultation. 02/09/2020-patient admitted with shortness of breath and bilateral pedal edema. Echocardiogram was requested. Plan is to continue Coreg, lisinopril, IV Lasix at this time. BNP at the time of admission is 2220. Chest x-ray indicated above CHF exacerbation. Found to have a small bilateral pleural effusions and cardiomegaly with central vascular congestion. Probably patient has acute systolic heart failure. 02/10/2091-56-fvuz-old female admitted with A. fib with RVR and lower extremity edema. Echocardiogram is pending. Presently on Coreg, Lasix receiving IV Lasix on as needed basis. BNP is 2400 this morning. Chest x-ray suggestive of CHF exacerbation. Receiving Coreg 25 mg p.o. twice daily heart rate is 74 this morning rate controlled atrial fibrillation. (2) Atrial fibrillation with rapid ventricular response Is this a current diagnosis for this admission?: Yes Plan: She is on Eliquis and Coreg. If the Coreg does not control her heart rate then we may have to switch her to Toprol-XL. 02/09/2020-patient is presently on Coreg 25 mg p.o. twice daily heart rate is around 100. To continue Eliquis at this time. Consultation with the cardiology is requested at this time. 02/10/2020-heart rate is around 76. In atrial fibrillation. Plan is to continue Eliquis and Coreg 25 mg p.o. twice daily at this time. (3) Diabetes mellitus type 2 in obese Is this a current diagnosis for this admission?: No Plan: 02/09/2020-patient has history of type 2 diabetes mellitus on Lantus 25 units at night and metformin thousand milligrams p.o. twice daily. Plan is to hold met formin and to place her on insulin sliding scale before meals and at bedtime to continue Lantus 22 units at bedtime. 02/10/2020-sugars this morning is 146. Patient is on insulin sliding scale before meals and at bedtime receiving Lantus 22 units at bedtime. Hemoglobin A1c 6.4. (4) Hypertension Qualifiers: Hypertension type: essential hypertension Qualified Code(s): I10 - Essential (primary) hypertension Is this a current diagnosis for this admission?: No Plan: 02/09/2020-patient has history of chronic essential hypertension she is on lisinopril 40 mg p.o. daily, Coreg 25 mg p.o. twice daily at home. Plan is to resume the medications during the hospital stay. 02/10/2020-blood pressure today is 136/66 stable. Plan is to continue lisinopril 40 mg p.o. daily, Coreg 25 mg p.o. twice a day. Patient is receiving Lasix on as needed basis. (5) Diabetic neuropathy Is this a current diagnosis for this admission?: No Plan: 02/10/2020-patient has history of chronic diabetic peripheral neuropathy taking Lyrica 75 mg p.o. every 8 hours at home. Patient is complaining of excruciating pain in both lower extremities plan is to continue Lyrica and started on IV morphine 1 mg every 4 hours as needed for pain. - Time Anticipated Discharge Disposition: Home, Self Care Anticipated Discharge Timeframe: within 48 hours
[2020-02-10] MEDS: MORPHINE SULFATE 10 MG/ML INJ IV PRN (08:52)
[2020-02-10] MEDS ORDERED: POTASSIUM CHLORIDE 10 MEQ TABLET.ER PO ONE ×2 (09:00→21:00)
[2020-02-10] MEDS: ISOSORBIDE MONONITRATE 60 MG TAB.ER.24H PO SCH (09:47)
[2020-02-10] MEDS: INSULIN REG, HUMAN 100 UNIT/ML 3 ML VIAL (PYX) SUBCUT SCH ×4 (09:48→22:38)
[2020-02-10] MEDS: LISINOPRIL 10 MG TABLET PO SCH (09:48)
[2020-02-10] MEDS: CARVEDILOL 12.5 MG TABLET PO SCH ×2 (09:48→22:36)
[2020-02-10] MEDS: APIXABAN 5 MG TABLET PO SCH ×2 (09:48→17:44)
[2020-02-10] MEDS: AMLODIPINE BESYLATE 5 MG TABLET PO SCH (09:48)
[2020-02-10] MEDS: ASPIRIN 81 MG TABLET, ENT COATED PO SCH (09:48)
[2020-02-10] MEDS ORDERED: (PENDING PHARMACY ID) (Pravastatin Sodium [Pravastatin Sodium] 40 MG) PO SCH (10:00)
[2020-02-10] MEDS ORDERED: ACETAMINOPHEN 325 MG TABLET ONE (20:02)
[2020-02-10] MEDS ORDERED: ACETAMINOPHEN 325 MG TABLET PO PRN (20:20)
[2020-02-10] MEDS: ATORVASTATIN CALCIUM 10 MG TABLET PO SCH (22:36)
[2020-02-10] MEDS ORDERED: INSULIN GLARGINE,HUM.REC.ANLOG 1,000 UNIT/10 ML VIAL (PYX) SUBCUT ONE (23:01)
[2020-02-10] MEDS: INSULIN GLARGINE,HUM.REC.ANLOG 1,000 UNIT/10 ML VIAL SUBCUT SCH (23:03)
[2020-02-11 05:39] LABS: ABSOLUTE EOSINOPHILS # (AUTO) 0.1 10^3/uL (0.0-0.6); ABSOLUTE LYMPHOCYTES (AUTO) 1.1 10^3/uL (0.5-4.7); ABSOLUTE MONOCYTES (AUTO) 0.8 10^3/uL (0.1-1.4); ABSOLUTE NEUT (AUTO) 8.1 10^3/uL (1.7-8.2); BASOPHILS % (AUTO) 0.5 % (0-2); EOSINOPHILS % (AUTO) 1.2 % (0-6); LYMPHOCYTES % (AUTO) 10.5 % (13-45); MEAN CORPUSCULAR HEMOGLOBIN 24.6 pg (27.0-33.4); MEAN CORPUSCULAR HGB CONC 32.2 g/dL (32.0-36.0); MEAN CORPUSCULAR VOLUME 77 fl (80-97); MONOCYTES % (AUTO) 8.1 % (3-13); PLATELET COUNT 229 10^3/uL (150-450); RED BLOOD COUNT 3.65 10^6/uL (3.72-5.28); RED CELL DISTRIBUTION WIDTH 17.2 % (11.5-14.0); SEGMENTED NEUTROPHILS % (AUTO) 79.7 % (42-78); TOTAL CELLS COUNTED % (AUTO) 100 %; WHITE BLOOD COUNT 10.2 10^3/uL (4.0-10.5)
[2020-02-11 06:42] LABS: ANION GAP 12 (5-19); BLOOD UREA NITROGEN 33 mg/dL (7-20); CALCIUM 9.3 mg/dL (8.4-10.2); CARBON DIOXIDE 28 mmol/L (22-30); CHLORIDE 99 mmol/L (98-107); GLUCOSE 142 mg/dL (75-110); POTASSIUM 3.7 mmol/L (3.6-5.0)
[2020-02-11] MEDS: FUROSEMIDE INJ/PF 20 MG/2 ML SDV IV SCH (07:04)
[2020-02-11] MEDS: PREGABALIN 75 MG CAPSULE PO PRN (07:16)
[2020-02-11] MEDS: PANTOPRAZOLE SODIUM 40 MG TABLET.DR PO SCH (07:16)
[2020-02-11] MEDS: INSULIN REG, HUMAN 100 UNIT/ML 3 ML VIAL (PYX) SUBCUT SCH ×4 (09:03→21:15)
--- NOTE | 2020-02-11 09:13 | PDOC PROGRESS REPORT ---
Subjective Progress Note for:: 02/11/20 Subjective:: 69 year old female with a history of atrial fibrillation who was sent for a heart cath at [facility] a few weeks ago and she does not recall any of the findings of the procedure but she does not think that they put any more stents in her. She said she got home from work this morning and she ate some food and then she started feeling short of breath. She says that since she left [place] for the heart cath she has had a little bit of swelling in her legs and feet. She has been able to perform all of her usual activities however. She said she felt like her heart was beating really fast. She came to the ER and was found to have a fast heart rate and was given some Cardizem and her heart rate is slowed down. Chest x-ray showed a little bit of bilateral pulmonary edema. She is not been having any fevers or cough. 02/09/20202011-31-thak-old female with history of cardiac cath few weeks ago as per her 3 stents were placed and she has also history of CABG, history of atrial fibrillation came to the emergency room with complaints of shortness of breath. She is also complaining of bilateral lower leg swelling. In the emergency room found to have an A. fib with RVR. She was started on a Cardizem drip which was discontinued later on. Patient is on Coreg 25 mg p.o. twice a day at home and also on Eliquis 5 mg p.o. twice daily. Plan is to continue Coreg 25 mg p.o. twice daily, Eliquis on consultation with Dr. Jose sandoval. is requested. Patient's channeler runner is Dr. Galaviz but is not available this weekend. Patient is comfortably in the bed communicating well. 02/10/[id number]-clce-old female admitted with A. fib with RVR heart rate this morni ng is 74 rate controlled A. fib. Patient is complaining of severe pain in both lower extremities secondary to diabetic neuropathy. Receiving Lyrica plan to start her on IV morphine 1 mg every 4 as needed for pain. BNP is more than 2400 given Lasix 40 mg IV 1 dose this morning. 02/11/[id number]-tovr-old female admitted with A. fib with RVR presently on Coreg 25 mg p.o. twice daily heart rate is around 72. Patient is also receiving Lasix for heart failure. She got a low-grade fever of 99.9 this morning. Yesterday is complaining of severe lower leg pains with gabapentin and IV morphine on as-n eeded basis pain is resolved. Patient sees Dr. Galaviz as an outpatient consultation is requested with Dr. Galaviz. Reason For Visit: AFIB,CHF Physical Exam Vital Signs: Temp Pulse Resp BP Pulse Ox 99.9 F 74 24 H 121/46 L 93 02/11/20 03:25 02/11/20 07:00 02/11/20 03:25 02/11/20 03:25 02/11/20 03:25 Intake & Output 02/10/20 02/11/20 02/12/20 06:59 06:59 06:59 Intake Total 540 360 Balance 540 360 Weight 60.1 kg 59.1 kg General appearance: PRESENT: no acute distress, obese Head exam: PRESENT: atraumatic Eye exam: PRESENT: PERRLA Mouth exam: PRESENT: neck supple Teeth exam: PRESENT: poor dentation Neck exam: ABSENT: carotid bruit, JVD, lymphadenopathy, thyromegaly Respiratory exam: PRESENT: decreased breath sounds Cardiovascular exam: PRESENT: RRR. ABSENT: diastolic murmur, rubs, systolic murmur GI/Abdominal exam: PRESENT: normal bowel sounds, soft. ABSENT: distended, guarding, mass, organolmegaly, rebound, tenderness Rectal exam: PRESENT: deferred Extremities exam: PRESENT: full ROM. ABSENT: calf tenderness, clubbing, pedal edema Neurological exam: PRESENT: alert, awake, oriented to person, oriented to place, oriented to time, oriented to situation, CN II-XII grossly intact. ABSENT: motor sensory deficit Psychiatric exam: PRESENT: appropriate affect, normal mood. ABSENT: homicidal ideation, suicidal ideation Results Laboratory Results: 02/11/20 04:42 02/11/20 04:42 02/11/20 02/11/20 04:42 04:42 WBC 10.2 RBC 3.65 L Hgb 9.0 L Hct 28.0 L MCV 77 L MCH 24.6 L MCHC 32.2 RDW 17.2 H Plt Count 229 Seg Neutrophils % 79.7 H Sodium 138.9 Potassium 3.7 Chloride 99 Carbon Dioxide 28 Anion Gap 12 BUN 33 H Creatinine 1.28 H Est GFR ( Amer) 50 L Glucose 142 H Calcium 9.3 Magnesium 2.0 02/08/20 02/10/20 16:54 05:00 Troponin I 0.061 NT-Pro-B Natriuret Pep 2220 H 2460 H Impressions: Chest X-Ray 02/08/20 16:41 IMPRESSION: Constellation of findings consistent with CHF exacerbation. Superimposed infectious process is not excluded. Assessment and Plan - Diagnosis (1) Acute congestive heart failure Qualifiers: Heart failure type: unspecified Qualified Code(s): I50.9 - Heart failure, unspecified Is this a current diagnosis for this admission?: Yes Plan: We do not yet have the recent cath report but will try to obtain it. We will get an echocardiogram because the last one that we have is from over 2 years ago. We will put her on some IV Lasix. She is on Coreg and lisinopril. If her heart rate is not under control we may have to try to switch her Coreg over to Toprol-XL. Cardiology was called when she was in the ER and they are going to see her in consultation. 02/09/2020-patient admitted with shortness of breath and bilateral pedal edema. Echocardiogram was requested. Plan is to continue Coreg, lisinopril, IV Lasix at this time. BNP at the time of admission is 2220. Chest x-ray indicated above CHF exacerbation. Found to have a small bilateral pleural effusions and cardiomegaly with central vascular congestion. Probably patient has acute systolic heart failure. 02/10/2076-64-jsjv-old female admitted with A. fib with RVR and lower extremity edema. Echocardiogram is pending. Presently on Coreg, Lasix receiving IV Lasix on as needed basis. BNP is 2400 this morning. Chest x-ray suggestive of CHF exacerbation. Receiving Coreg 25 mg p.o. twice daily heart rate is 74 this morning rate controlled atrial fibrillation. 02/11/2020-patient is on Lasix 20 mg IV every 8 hours euvolemic at the time of my examination. Patient is also on lisinopril 40 mg p.o. daily and Coreg 25 mg p.o. twice daily. Blood pressure is 120/60. Plan is to continue the present management and to change Lasix to p.o. from today. (2) Atrial fibrillation with rapid ventricular response Is this a current diagnosis for this admission?: Yes Plan: She is on Eliquis and Coreg. If the Coreg does not control her heart rate then we may have to switch her to Toprol-XL. 02/09/2020-patient is presently on Coreg 25 mg p.o. twice daily heart rate is around 100. To continue Eliquis at this time. Consultation with the cardiology is requested at this time. 02/10/2020-heart rate is around 76. In atrial fibrillation. Plan is to continue Eliquis and Coreg 25 mg p.o. twice daily at this time. 02/11/2020-heart rate today is 72 plan is to continue Eliquis and Coreg at this time. (3) Diabetes mellitus type 2 in obese Is this a current diagnosis for this admission?: No Plan: 02/09/2020-patient has history of type 2 diabetes mellitus on Lantus 25 units at night and metformin thousand milligrams p.o. twice daily. Plan is to hold metformin and to place her on insulin sliding scale before meals and at bedtime to continue Lantus 22 units at bedtime. 02/10/2020-sugars this morning is 146. Patient is on insulin sliding scale before meals and at bedtime receiving Lantus 22 units at bedtime. Hemoglobin A1 c 6.4. (4) Hypertension Qualifiers: Hypertension type: essential hypertension Qualified Code(s): I10 - Essential (primary) hypertension Is this a current diagnosis for this admission?: No Plan: 02/09/2020-patient has history of chronic essential hypertension she is on marah nopril 40 mg p.o. daily, Coreg 25 mg p.o. twice daily at home. Plan is to resume the medications during the hospital stay. 02/10/2020-blood pressure today is 136/66 stable. Plan is to continue lisinopril 40 mg p.o. daily, Coreg 25 mg p.o. twice a day. Patient is receiving Lasix on as needed basis. (5) Diabetic neuropathy Is this a current diagnosis for this admission?: No Plan: 02/10/2020-patient has history of chronic diabetic peripheral neuropathy taking Lyrica 75 mg p.o. every 8 hours at home. Patient is complaining of excruciating pain in both lower extremities plan is to continue Lyrica and started on IV morphine 1 mg every 4 hours as needed for pain. - Time Anticipated Discharge Disposition: Home, Self Care Anticipated Discharge Timeframe: within 24 hours
--- NOTE | 2020-02-11 09:40 | PDOC CONSULTATION ---
Consultation Consult Date: 02/10/20 Attending physician:: HERB WHEELER Provider Consulted: JOHN BLACKMON Consult reason:: Congestive heart failure, atrial fibrillation with rapid ventricular response History of Present Illness Admission Date/PCP: 02/08/20 20:14 GOMEZ LEONG History of Present Illness: NANI OBRIEN is a 69 year old female Patient is usually followed by Dr. Galaviz. I was asked to consult as Dr. Galaviz was unavailable. With the following active problems 1. Coronary artery disease 2. CABG 3. Systemic hypertension 4. Systemic hypertension 5. Diabetes mellitus 6. Congestive heart failure 7. Systemic anticoagulation-apixaban 8. Diabetic neuropathy Patient with recent cardiac catheterization at [facility] for chest pain but reports no new stents. She presented with acute decompensated congestive heart failure and atrial fibrillation rapid ventricular response. Atrial fibrillation was rate controlled initially with diltiazem with patient being transitioned to oral beta-roddy. Heart failure symptoms have improved since admission. Past Medical History Cardiac Medical History: Reports: Atrial Fibrillation, Coronary Artery Disease, Hyperlipidema, Hypertension Endocrine Medical History: Reports: Diabetes Mellitus Type 2 Psychiatric Medical History: Denies: Depression Past Surgical History Past Surgical History: Reports: Cholecystectomy, Coronary Artery Bypass Graft - tripple vessel, Coronary Stent - 3 stents, Hysterectomy Social History Smoking Status: Never Smoker Frequency of Alcohol Use: None Hx Recreational Drug Use: No Drugs: None Hx Prescription Drug Abuse: No Family History Family History: Reviewed & Not Pertinent, CVA Parental Family History Reviewed: Yes - No familial illnesses Children Family History Reviewed: NA Sibling(s) Family History Reviewed.: NA Medication/Allergy Home Medications: Metformin HCl [Glucophage] 1,000 mg PO BID 09/08/17 Apixaban [Eliquis 5 mg Tablet] 5 mg PO Q12 #60 tablet 09/12/17 Carvedilol 25 mg PO BID 01/15/20 Insulin Glargine,Hum.rec.anlog [Basaglar [place] U-100] 22 unit SQ QHS 01/15/20 Pravastatin Sodium 40 mg PO DAILY 01/15/20 Amlodipine Besylate [Norvasc 5 mg Tablet] 5 mg PO DAILY 02/09/20 Aspirin [Aspir-Low] 81 mg PO DAILY 02/09/20 Isosorbide Mononitrate [Imdur 60 mg Tablet.er] 60 mg PO DAILY 02/09/20 Lisinopril [Zestril] 40 mg PO DAILY 02/09/20 Pregabalin [Lyrica 75 mg Capsule] 75 mg PO TID 02/09/20 Allergies/Adverse Reactions: No Known Allergies Allergy (Verified 05/13/18 13:24) Review of Systems Constitutional: PRESENT: as per HPI Eyes: PRESENT: as per HPI Ears: PRESENT: as per HPI Nose, Mouth, and Throat: ABSENT: as per HPI, headache(s), mouth pain, sore throat, vertigo, other Cardiovascular: PRESENT: dyspnea on exertion, edema, orthropnea Respiratory: PRESENT: as per HPI, dyspnea Gastrointestinal: ABSENT: as per HPI, abdominal pain, bloating, coffee ground emesis, constipation, diarrhea, dysphagia, heartburn, hematemesis, hematochezia, melena, nausea, vomiting, other Genitourinary: ABSENT: as per HPI, difficulty urinating, dysuria, hematuria, nocturia, other Integumentary: ABSENT: as per HPI, diaphoresis, erythema, lesions, pruritus, rash, wounds, other Neurological: PRESENT: other - Neuropathy pain is reported Psychiatric: ABSENT: as per HPI, anxiety, depression, hallucinations, homidical ideation, suicidal ideation, other Endocrine: ABSENT: as per HPI, cold intolerance, flushing, heat intolerance, menstrual abnormalities, polydipsia, polyphagia, polyuria, other Physical Exam Vital Signs: Temp Pulse Resp BP Pulse Ox 100.9 F H 84 23 H 115/50 L 92 02/10/20 19:17 02/10/20 19:17 02/10/20 19:17 02/10/20 19:17 02/10/20 19:17 Intake & Output 02/09/20 02/10/20 02/11/20 06:59 06:59 06:59 Intake Total 200 540 360 Balance 200 540 360 Weight 61.5 kg 60.1 kg General appearance: PRESENT: no acute distress, cooperative, well-developed, well-nourished Head exam: PRESENT: atraumatic, normocephalic Eye exam: PRESENT: EOMI Mouth exam: PRESENT: moist Respiratory exam: PRESENT: crackles, decreased breath sounds, symmetrical, unlabored Cardiovascular exam: PRESENT: irregular rhythm, +S1, +S2 Pulses: PRESENT: normal radial pulses GI/Abdominal exam: PRESENT: soft Rectal exam: PRESENT: deferred Neurological exam: PRESENT: alert, awake, oriented to person, oriented to place, oriented to time, oriented to situation Psychiatric exam: PRESENT: appropriate affect Skin exam: PRESENT: dry, intact, normal color Results Laboratory Results: 02/10/20 05:00 02/10/20 05:00 02/10/20 02/10/20 02/10/20 05:00 05:00 05:00 WBC 10.1 RBC 3.81 Hgb 9.4 L Hct 28.8 L MCV 76 L MCH 24.6 L MCHC 32.5 RDW 17.0 H Plt Count 262 Seg Neutrophils % 64.8 Sodium 140.7 Potassium 3.4 L Chloride 100 Carbon Dioxide 26 Anion Gap 15 BUN 25 H Creatinine 0.99 Est GFR ( Amer) > 60 Glucose 148 H Calcium 9.7 Magnesium 1.6 TSH 4.84 H 02/08/20 02/10/20 16:54 05:00 Troponin I 0.061 NT-Pro-B Natriuret Pep 2220 H 2460 H EKG Comments: Twelve-lead EKG 02/09/2020. Independently viewed by me. Atrial fibrillation ventricular rate is 95 bpm. Chest x-ray 02/08/2020 Congestive heart failure exacerbation Cardiomegaly. Postsurgical changes suggestive of CABG. Impressions: Chest X-Ray 02/08/20 16:41 IMPRESSION: Constellation of findings consistent with CHF exacerbation. Superimposed infectious process is not excluded. Assessment & Plan - Diagnosis (1) Acute congestive heart failure Qualifiers: Heart failure type: unspecified Qualified Code(s): I50.9 - Heart failure, unspecified Is this a current diagnosis for this admission?: Yes Plan: Acute decompensated congestive heart failure Patient's clinical condition is improved with diuretic. Continue to watch volume status Judicious use of diuretics Watch renal status (2) Atrial fibrillation with rapid ventricular response Is this a current diagnosis for this admission?: Yes Plan: Patient is better rate control. Tolerating oral beta-blockers Continue systemic anticoagulation Continue apixaban 5 mg twice daily Continue carvedilol 25 mg twice daily (3) Elevated troponin Is this a current diagnosis for this admission?: Yes Plan: Mildly elevated troponin during this admission likely a reflection of congestive heart failure. Unlikely to be acute coronary syndrome (4) CAD (coronary artery disease) Qualifiers: Coronary Disease-Associated Artery/Lesion type: [place] artery [place] vs. transplanted heart: [place] heart Associated angina: without angina Qualified Code(s): I25.10 - Atherosclerotic heart disease of [place] coronary artery without angina pectoris Is this a current diagnosis for this admission?: Yes Plan: Continue lisinopril 10 mg daily Continue apixaban 5 mg twice daily Continue carvedilol 25 mg twice daily Continue amlodipine 10 mg daily Continue atorvastatin 10 mg daily Continue Imdur 60 mg daily Continue aspirin 81 mg daily
[2020-02-11] MEDS: LISINOPRIL 10 MG TABLET PO SCH (11:06)
[2020-02-11] MEDS: ASPIRIN 81 MG TABLET, ENT COATED PO SCH (11:07)
[2020-02-11] MEDS: ISOSORBIDE MONONITRATE 30 MG TAB.ER.24H PO SCH (11:07)
[2020-02-11] MEDS: CARVEDILOL 12.5 MG TABLET PO SCH ×2 (11:08→21:14)
[2020-02-11] MEDS: FUROSEMIDE 40 MG TABLET PO SCH (11:08)
[2020-02-11] MEDS: AMLODIPINE BESYLATE 5 MG TABLET PO SCH (11:08)
[2020-02-11] MEDS: APIXABAN 5 MG TABLET PO SCH ×2 (11:08→18:24)
[2020-02-11] MEDS: MORPHINE SULFATE 10 MG/ML INJ IV PRN ×2 (15:35→21:16)
--- NOTE | 2020-02-11 19:41 | XCELERA REPORT ---
[address] [address] Transthoracic Echocardiogram Report Name: NANI OBRIEN Age: 69 yrs Gender: Female : 1950 Patient Status: Inpatient Patient Location: [address] [place] [address] Study Date: 02/11/2020 09:46 AM Procedure: A complete two-dimensional transthoracic echocardiogram was performed (2D, M-mode, spectral and color flow Doppler). The study was technically adequate with some images being suboptimal in quality. Reason For Study: afib, heart failure Ordering Physician: HERB WHEELER Performed By: Kerry Regan Interpretation Summary LEFT VENTRICLE: LV Systolic function: LVEF is felt to be mildly depressed best estimate being approximately 45 to 50%. LV Diastolic Function: Grade III diastolic dysfunction noted. Wall motion : No definite regional wall motion abnormalities are noted. Left ventricular chamber size : is within normal limit. Left ventricular wall thickness : is increased indicative of mild to moderate LVH. INTERVENTRICULAR SEPTUM: no evidence of VSD noted. No asymmetric hypertrophy noted. RIGHT VENTRICLE: RV systolic function : is felt to be within normal limit. Right Ventricle Size : borderline dilated. LEFT ATRIUM size : mildly dilated. RIGHT ATRIUM size : is within normal limit. INTER ATRIAL SEPTUM : No definite atrial septal defect noted however a small PFO could be missed. AORTIC ROOT : seems to be within normal limits. Ascending aorta is not well visualized. INFERIOR VENA CAVA: Within normal limits with normal respiratory variation. VALVES: MITRAL VALVE : Leaflets are mildly thickened. Mobility seems to be within normal limits. Mitral Regurgitation : Mild mitral regurgitation is noted. Mitral Stenosis: No mitral stenosis noted. Mitral valve prolapse : none noted. AORTIC VALVE: seems to be trileaflet with thickening but adequate excursion. Aortic stenosis : No aortic stenosis noted. Aortic regurgitation : No aortic incompetence noted. TRICUSPID VALVE : mobility and structures within normal limit. Tricuspid stenosis : no tricuspid stenosis noted. Tricuspid regurgitation : Trace to mild tricuspid regurgitation noted. Estimated RVSP : Approximately 35 mmHg consistent with mild pulmonary hypertension. PULMONARY VALVE : was not well visualized but no significant abnormalities suspected. Pulmonary stenosis : no significant pulmonary stenosis noted. Pulmonary regurgitation : no significant pulmonary regurgitation noted. MASSES AND THROMBUS : No definite intracardiac thrombus or masses are noted. PERICARDIUM: No pericardial effusion was noted. IMPRESSION : 1. Mildly depressed LVEF. Best estimated at 45 to 50%. 2. Mild to moderate LVH noted. 3. Grade III Diastolic Dysfunction noted. 4. Mild mitral regurgitation noted. Mild tricuspid regurgitation noted. 5. Mild pulmonary hypertension noted. MMode/2D Measurements & Calculations RVDd: 2.2 cm LVIDd: 4.1 cm FS: 25.7 % Ao root diam: 2.8 cm IVSd: 1.1 cm LVIDs: 3.0 cm EDV(Teich): 73.8 ml Ao root area: 6.3 cm2 LVPWd: 0.93 cm ESV(Teich): 36.1 ml EF(Teich): 51.0 % Doppler Measurements & Calculations MV E max daria: MV dec slope: Ao V2 max: LV V1 max P.5 cm/sec 142.3 cm/sec 3.7 mmHg MV A max daria: 911.4 cm/sec2 Ao max PG: LV V1 max: 49.3 cm/sec MV dec time: 0.15 sec 8.1 mmHg 96.3 cm/sec MV E/A: 2.8 PA V2 max: TR max daria: 112.3 cm/sec 241.0 cm/sec PA max P.0 mmHg TR max P.5 mmHg : HERB WHEELER Shyamal
[2020-02-11] MEDS: ATORVASTATIN CALCIUM 10 MG TABLET PO SCH (21:15)
--- NOTE | 2020-02-11 21:25 | EKG REPORT ---
SEVERITY:- ABNORMAL ECG - ATRIAL FIBRILLATION : Confirmed by: Anderson Galaviz 11-Feb-2020 21:25:04
--- NOTE | 2020-02-11 21:45 | CDI QUERY ---
CDI Query CDI Review: We are seeking further clarification of documentation to reflect the severity of illness of your patient. Documented in the Progress Notes: 02/09/2020-patient admitted with shortness of breath and bilateral pedal edema. Echocardiogram was requested. Plan is to continue Coreg, lisinopril, IV Lasix at this time. BNP at the time of admission is 2220. Chest x-ray indicated above CHF exacerbation. Found to have a small bilateral pleural effusions and cardiomegaly with central vascular congestion. Probably patient has acute systolic heart failure. Please, when you have the echo results and additional information, based on your medical judgement, can you further clarify in the Progress Notes: Type of heart failure: Systolic Diastolic Combined systolic/diastolic Other (please specify) None of the above / Not applicable - AND Severity of heart failure: Acute, exacerbation, or decompensation Chronic Acute on chronic Other (please specify) None of the above / Not applicable Thank you for your consideration. ANGELIA Cummings RN Clinical Drill Runner Helper Physician Advisor
--- NOTE | 2020-02-11 21:45 | PDOC PROGRESS REPORT ---
Subjective Progress Note for:: 02/11/20 Subjective:: Patient seen and examined. Patient has known history of coronary artery disease. Patient was admitted with shortness of breath. Patient was noted to be in atrial fibrillation. Patient also noted to be in congestive heart failure. Patient to Ant had a 2D echocardiogram with shows mildly depressed LVEF along with Grade III diastolic dysfunction. Patient was noted to be resting comfortably in bed. She denies any chest pains or shortness of breath. Patient however complaint of bilateral lower extremity discomfort. Reason For Visit: AFIB,CHF Physical Exam Vital Signs: Temp Pulse Resp BP Pulse Ox 100.9 F H 103 H 25 H 109/58 L 87 L 02/11/20 16:35 02/11/20 16:35 02/11/20 16:35 02/11/20 16:35 02/11/20 16:35 Intake & Output 02/10/20 02/11/20 02/12/20 06:59 06:59 06:59 Intake Total 540 360 720 Output Total 500 Balance 540 360 220 Weight 60.1 kg 59.1 kg Exam: GEN: NAD, patient alert oriented x3. Appearance and grooming WNL HEENT : Eyes: MICHELLE, Ears: No significant abnormalities, Nose: No significant abnormalities. normocephalic atraumatic. Flat midface (-), Receding chin (-) ORAL : Mallampati class IV, narrow arched palate (-) Tonsils: Not enlarged. NECK: no thyromegaly, no masses, trachea is central, JVD is not elevated, carotids 2+ with bruit (-) RESP: lungs clear, no rales, wheezes or rhonchi, nonlabored, accessory muscles of respiration use (-). CV: NL S1 and S2. No significant murmurs noted, no gallop, no extra sounds, no clicks, no rub noted. GI: abd NT to palpation, no masses, bowel sounds present, no guarding or rigidity noted. EXT: no clubbing, (-) cyanosis, edema (-), perpheral pulses diminished (yes) MUSC/SKEL: no acute joint swelling noted. Muscle strength is generally intact. NEURO: no significant focal neurological deficits are note, sensation grossly intact, AO x 3 PSYCH: NL mood and affect. judgment and insight noted to be intact. SKIN: (-) rash, (-)Signs of pruritus, (-) other significant abnormality Results Laboratory Results: 02/11/20 04:42 02/11/20 04:42 02/11/20 02/11/20 04:42 04:42 WBC 10.2 RBC 3.65 L Hgb 9.0 L Hct 28.0 L MCV 77 L MCH 24.6 L MCHC 32.2 RDW 17.2 H Plt Count 229 Seg Neutrophils % 79.7 H Sodium 138.9 Potassium 3.7 Chloride 99 Carbon Dioxide 28 Anion Gap 12 BUN 33 H Creatinine 1.28 H Est GFR ( Amer) 50 L Glucose 142 H Calcium 9.3 Magnesium 2.0 02/08/20 02/10/20 16:54 05:00 Troponin I 0.061 NT-Pro-B Natriuret Pep 2220 H 2460 H EKG Comments: Rhythm strip shows atrial fibrillation with intermittent rapid ventricular re sponse. Patient also noted to have intermittent sinus rhythm. Impressions: Chest X-Ray 02/08/20 16:41 IMPRESSION: Constellation of findings consistent with CHF exacerbation. Superimposed infectious process is not excluded. Assessment & Plan - Diagnosis (1) Acute congestive heart failure Qualifiers: Heart failure type: combined systolic and diastolic Qualified Code(s): I50.41 - Acute combined systolic (congestive) and diastolic (congestive) heart failure Is this a current diagnosis for this admission?: Yes (2) Atrial fibrillation with rapid ventricular response Is this a current diagnosis for this admission?: Yes (3) CAD (coronary artery disease) Qualifiers: Coronary Disease-Associated Artery/Lesion type: unspecified vessel or lesion type [place] vs. transplanted heart: [place] heart Associated angina: without angina Qualified Code(s): I25.10 - Atherosclerotic heart disease of [place] coronary artery without angina pectoris Is this a current diagnosis for this admission?: Yes (4) Diabetic neuropathy Qualifiers: Diabetes mellitus type: type 2 Is this a current diagnosis for this admission?: Yes (5) Dyslipidemia Is this a current diagnosis for this admission?: Yes (6) Hypertension Qualifiers: Hypertension type: essential hypertension Qualified Code(s): I10 - Essential (primary) hypertension Is this a current diagnosis for this admission?: Yes (7) CKD (chronic kidney disease) Qualifiers: Chronic kidney disease stage: unspecified stage Qualified Code(s): N18.9 - Chronic kidney disease, unspecified Is this a current diagnosis for this admission?: Yes - Notes Notes: Patient describes history of atrial fibrillation after having had CABG. She presented with atrial fibrillation with rapid ventricular response. She was also noted to be CHF. Patient has significant CAD history. Patient also has significant history of PVD, CKD, diabetes and multiple other comorbid diagnosis. At this point agree with rate control and chronic anticoagulation. However since patient is having paroxysmal atrial fibrillation, it may be worthwhile to start patient on antiarrhythmic medication. Given patient comorbid diagnosis including CHF, CKD et cetera, feel that amiodarone is probably the safest choice. Patient to be started on amiodarone 200 mg PO three times a day with meals. Aim would be to give it just for a month. Currently patient noted to be in beta roddy therapy and also ACEI therapy. May consider SGLT2 inhibitors. Will continue to follow-up patient. Add amiodarone 200 po TID with meals. - Time Time with patient: Greater than 35 minutes Medications reviewed and adjusted accordingly: Yes
[2020-02-11] MEDS ORDERED: INSULIN GLARGINE,HUM.REC.ANLOG 1,000 UNIT/10 ML VIAL (PYX) SUBCUT ONE (22:33)
[2020-02-11] MEDS: INSULIN GLARGINE,HUM.REC.ANLOG 1,000 UNIT/10 ML VIAL SUBCUT SCH (22:59)
[2020-02-12] MEDS: PANTOPRAZOLE SODIUM 40 MG TABLET.DR PO SCH (06:55)
[2020-02-12] MEDS: ASPIRIN 81 MG TABLET, ENT COATED PO SCH (10:19)
[2020-02-12] MEDS: CARVEDILOL 12.5 MG TABLET PO SCH ×2 (10:19→22:33)
[2020-02-12] MEDS: APIXABAN 2.5 MG TABLET PO SCH ×2 (10:19→17:57)
[2020-02-12] MEDS: FUROSEMIDE 40 MG TABLET PO SCH (10:19)
[2020-02-12] MEDS: AMIODARONE HCL 200 MG TABLET PO SCH ×3 (10:19→17:58)
[2020-02-12] MEDS: ISOSORBIDE MONONITRATE 30 MG TAB.ER.24H PO SCH (10:19)
[2020-02-12] MEDS: LISINOPRIL 10 MG TABLET PO SCH (10:19)
[2020-02-12] MEDS: INSULIN REG, HUMAN 100 UNIT/ML 3 ML VIAL (PYX) SUBCUT SCH ×4 (10:20→22:32)
[2020-02-12] MEDS: PREGABALIN 75 MG CAPSULE PO PRN (14:17)
--- NOTE | 2020-02-12 19:31 | EKG REPORT ---
SEVERITY:- ABNORMAL ECG - ATRIAL FIBRILLATION, V-RATE 62-115 : Confirmed by: Anderson Galaviz 12-Feb-2020 19:29:57
[2020-02-12] MEDS ORDERED: INSULIN GLARGINE,HUM.REC.ANLOG 1,000 UNIT/10 ML VIAL (PYX) SUBCUT ONE (22:29)
[2020-02-12] MEDS: INSULIN GLARGINE,HUM.REC.ANLOG 1,000 UNIT/10 ML VIAL SUBCUT SCH (22:32)
[2020-02-12] MEDS: ATORVASTATIN CALCIUM 10 MG TABLET PO SCH (22:33)
--- NOTE | 2020-02-13 08:35 | EKG REPORT ---
SEVERITY:- ABNORMAL ECG - ATRIAL FIBRILLATION, V-RATE 56-99 PROBABLE LVH WITH SECONDARY REPOL ABNRM : Confirmed by: Anderson Galaviz 13-Feb-2020 08:33:51
[2020-02-13] MEDS: PANTOPRAZOLE SODIUM 40 MG TABLET.DR PO SCH (08:46)
[2020-02-13] MEDS: INSULIN REG, HUMAN 100 UNIT/ML 3 ML VIAL (PYX) SUBCUT SCH ×2 (08:46→11:17)
--- NOTE | 2020-02-13 08:46 | PDOC PROGRESS REPORT ---
Subjective Progress Note for:: 02/12/20 Subjective:: Patient seen and examined. Patient has known history of coronary artery disease. Patient was admitted with shortness of breath. Patient was noted to be in atrial fibrillation. Patient also noted to be in congestive heart failure. Patient to Ant had a 2D echocardiogram with shows mildly depressed LVEF along with Grade III diastolic dysfunction. Patient was noted to be resting comfortably in bed. She denies any chest pains or shortness of breath. Patient however complaint of bilateral lower extremity discomfort. 02/12/2020: patient was seen on evening rounds. She remained stable. Telemetry strip shows atrial fibrillation. Review of telemetry strip shows that patient was in sinus rhythm on Tuesday. Sinus rhythm was also noted while patient was having echocardiogram. Subsequently patient reverted back to atrial fibrillation. Patient is still having bilateral lower extremity discomfort possibly neuropathic in nature. Patient does however also have peripheral vascular disease. She is denying any chest pains shortness of breath. Reason For Visit: AFIB,CHF Physical Exam Vital Signs: Temp Pulse Resp BP Pulse Ox 98.6 F 76 16 99/50 L 96 02/12/20 11:42 02/12/20 14:00 02/12/20 11:42 02/12/20 11:42 02/12/20 11:42 Intake & Output 02/11/20 02/12/20 02/13/20 06:59 06:59 06:59 Intake Total 360 720 Output Total 500 Balance 360 220 Weight 59.1 kg 59.1 kg Exam: GEN: NAD, patient alert oriented x3. Appearance and grooming WNL HEENT : Eyes: MICHELLE, Ears: No significant abnormalities, Nose: No significant abnormalities. normocephalic atraumatic. Flat midface (-), Receding chin (-) ORAL : Mallampati class IV, narrow arched palate (-) Tonsils: Not enlarged. NECK: no thyromegaly, no masses, trachea is central, JVD is not elevated, carotids 2+ with bruit (-) RESP: lungs clear, no rales, wheezes or rhonchi, nonlabored, accessory muscles of respiration use (-). CV: NL S1 and S2. No significant murmurs noted, no gallop, no extra sounds, no clicks, no rub noted. GI: abd NT to palpation, no masses, bowel sounds present, no guarding or rigidity noted. EXT: no clubbing, (-) cyanosis, edema (-), perpheral pulses diminished (yes) MUSC/SKEL: no acute joint swelling noted. Muscle strength is generally intact. NEURO: no significant focal neurological deficits are note, sensation grossly intact, AO x 3 PSYCH: NL mood and affect. judgment and insight noted to be intact. SKIN: (-) rash, (-)Signs of pruritus, (-) other significant abnormality Results Laboratory Results: 02/11/20 04:42 02/11/20 04:42 02/08/20 02/10/20 16:54 05:00 Troponin I 0.061 NT-Pro-B Natriuret Pep 2220 H 2460 H Impressions: Chest X-Ray 02/08/20 16:41 IMPRESSION: Constellation of findings consistent with CHF exacerbation. Superimposed infectious process is not excluded. Assessment & Plan - Diagnosis (1) Acute congestive heart failure Qualifiers: Heart failure type: combined systolic and diastolic Qualified Code(s): I50.41 - Acute combined systolic (congestive) and diastolic (congestive) heart failure Is this a current diagnosis for this admission?: Yes (2) Atrial fibrillation with rapid ventricular response Is this a current diagnosis for this admission?: Yes (3) CAD (coronary artery disease) Qualifiers: Coronary Disease-Associated Artery/Lesion type: unspecified vessel or lesion type [place] vs. transplanted heart: [place] heart Associated angina: without angina Qualified Code(s): I25.10 - Atherosclerotic heart disease of [place] coronary artery without angina pectoris Is this a current diagnosis for this admission?: Yes (4) Diabetic neuropathy Qualifiers: Diabetes mellitus type: type 2 Is this a current diagnosis for this admission?: Yes (5) Dyslipidemia Is this a current diagnosis for this admission?: Yes (6) Hypertension Qualifiers: Hypertension type: essential hypertension Qualified Code(s): I10 - Essential (primary) hypertension Is this a current diagnosis for this admission?: Yes (7) CKD (chronic kidney disease) Qualifiers: Chronic kidney disease stage: unspecified stage Qualified Code(s): N18.9 - Chronic kidney disease, unspecified Is this a current diagnosis for this admission?: Yes (8) Sleep apnea syndrome Qualifiers: Sleep apnea type: unspecified type Qualified Code(s): G47.30 - Sleep apnea, unspecified Is this a current diagnosis for this admission?: Yes - Notes Notes: Patient remains in atrial fibrillation. However she was in sinus rhythm yesterday for some duration. Patient was started on amiodarone with first dose early this morning. Plan would be to continue amiodarone, hopefully patient will convert with the help of amiodarone. Plan is to continue amiodarone for about 30 days or four weeks. If patient remains in atrial fibrillation at that time, a elective cardio-version will be considered. Continue chronic anticoagulation on rate control as you are doing. Dose of Eliquis was reduced to 2.5 mg PO bid given her weight and since amiodarone was started. Patient does have underlying coronary artery disease but currently stable without any chest pain. CHF seems compensated on clinical exam. Have advised patient to get her CPAP machine from home and start on home setting. If there are any questions please feel free to give me a call. - Time Time with patient: Greater than 35 minutes Medications reviewed and adjusted accordingly: Yes
[2020-02-13] MEDS: CARVEDILOL 12.5 MG TABLET PO SCH ×2 (10:00→22:35)
[2020-02-13 10:46] LABS: ABSOLUTE BASOPHILS # (AUTO) 0.2 10^3/uL (0.0-0.2); ABSOLUTE EOSINOPHILS # (AUTO) 0.3 10^3/uL (0.0-0.6); ABSOLUTE LYMPHOCYTES (AUTO) 1.1 10^3/uL (0.5-4.7); ABSOLUTE MONOCYTES (AUTO) 0.5 10^3/uL (0.1-1.4); BASOPHILS % (AUTO) 2.2 % (0-2); EOSINOPHILS % (AUTO) 4.4 % (0-6); HEMATOCRIT 28.5 % (36.0-47.0); HEMOGLOBIN 9.2 g/dL (12.0-15.5); MEAN CORPUSCULAR HEMOGLOBIN 24.6 pg (27.0-33.4); MEAN CORPUSCULAR HGB CONC 32.1 g/dL (32.0-36.0); MEAN CORPUSCULAR VOLUME 77 fl (80-97); MONOCYTES % (AUTO) 7.1 % (3-13); PLATELET COUNT 248 10^3/uL (150-450); RED BLOOD COUNT 3.73 10^6/uL (3.72-5.28); RED CELL DISTRIBUTION WIDTH 16.9 % (11.5-14.0); SEGMENTED NEUTROPHILS % (AUTO) 71.3 % (42-78); TOTAL CELLS COUNTED % (AUTO) 100 %
[2020-02-13 11:00] LABS: CHOLESTEROL 146.09 mg/dL (0-200); TRIGLYCERIDES 158 mg/dL (<150)
[2020-02-13 11:02] LABS: ANION GAP 12 (5-19); BLOOD UREA NITROGEN 56 mg/dL (7-20); CALCIUM 9.1 mg/dL (8.4-10.2); CARBON DIOXIDE 27 mmol/L (22-30); CHLORIDE 101 mmol/L (98-107); GLUCOSE 177 mg/dL (75-110); POTASSIUM 3.9 mmol/L (3.6-5.0)
[2020-02-13 11:11] LABS: DIRECT LDL 81 mg/dL (<100)
[2020-02-13] MEDS: ASPIRIN 81 MG TABLET, ENT COATED PO SCH (11:13)
[2020-02-13] MEDS: FUROSEMIDE 40 MG TABLET PO SCH (11:13)
[2020-02-13] MEDS: APIXABAN 2.5 MG TABLET PO SCH ×2 (11:13→18:41)
[2020-02-13] MEDS: AMIODARONE HCL 200 MG TABLET PO SCH ×3 (11:13→18:40)
[2020-02-13] MEDS: MORPHINE SULFATE 10 MG/ML INJ IV PRN (11:14)
[2020-02-13] MEDS: PREGABALIN 75 MG CAPSULE PO PRN (11:16)
[2020-02-13 11:17] LABS: VLDL CHOLESTEROL 31.6 mg/dL (10-31)
[2020-02-13] MEDS ORDERED: PREGABALIN 75 MG CAPSULE PO SCH (14:00)
--- NOTE | 2020-02-13 14:29 | PDOC PROGRESS REPORT ---
Subjective Progress Note for:: 02/13/20 Subjective:: Patient admitted for A. fib with RVR, CHF exacerbation, severe BLE neuropathic pain. Patient follows with Dr. Galaviz outpatient and he has been consulted here and is following the case. Patient appears to be rate controlled currently on amiodarone and beta-roddy. Blood pressure is lower limit normal at times but patient is asymptomatic from this. Patient's primary complaint is severe BLE neuropathic pain which is not relieved by Lyrica which is been strangely prescribed as as needed. She takes this scheduled every 8 hours at home. I have increased the dose of this to 100 mg 3 times daily. Patient was not seen by a provider yesterday from the hospitalist service however I have offered to take over the patient's care today. She denies any other specific complaints besides pain in her feet. Per records, she has history of PAD and I have ordered arterial ultrasound to ensure she does not have progression of her PAD to the point of critical ischemia which could be accounting for her increase in pain lately. She will need to be evaluated by vascular surgeon if this is the case. Reason For Visit: AFIB,CHF Physical Exam Vital Signs: Temp Pulse Resp BP Pulse Ox 98.5 F 71 12 117/54 L 100 02/13/20 11:14 02/13/20 11:14 02/13/20 11:14 02/13/20 11:14 02/13/20 11:14 Intake & Output 02/12/20 02/13/20 02/14/20 06:59 06:59 06:59 Intake Total 720 200 240 Output Total 500 100 100 Balance 220 100 140 Weight 59.1 kg 58.7 kg General appearance: PRESENT: no acute distress, well-developed, well-nourished Head exam: PRESENT: atraumatic, normocephalic Eye exam: PRESENT: conjunctiva pink Mouth exam: PRESENT: moist Respiratory exam: PRESENT: clear to auscultation miguel angel. ABSENT: rales, rhonchi, w heezes Cardiovascular exam: PRESENT: irregular rhythm. ABSENT: diastolic murmur, rubs, systolic murmur GI/Abdominal exam: PRESENT: normal bowel sounds, soft. ABSENT: distended, guarding, mass, organolmegaly, rebound, tenderness Extremities exam: PRESENT: tenderness - Neuropathic pain in bilateral feet with palpation Neurological exam: PRESENT: alert, awake, oriented to person, oriented to place, oriented to time, oriented to situation Psychiatric exam: PRESENT: appropriate affect, normal mood Skin exam: PRESENT: dry, intact, warm Results Laboratory Results: 02/13/20 10:00 02/13/20 10:00 02/13/20 02/13/20 02/13/20 10:00 10:00 10:00 WBC 7.0 RBC 3.73 Hgb 9.2 L Hct 28.5 L MCV 77 L MCH 24.6 L MCHC 32.1 RDW 16.9 H Plt Count 248 Seg Neutrophils % 71.3 Sodium 139.8 Potassium 3.9 Chloride 101 Carbon Dioxide 27 Anion Gap 12 BUN 56 H Creatinine 1.73 H Est GFR ( Amer) 36 L Glucose 177 H Calcium 9.1 Triglycerides 158 H Cholesterol 146.09 LDL Cholesterol Direct 81 VLDL Cholesterol 31.6 H HDL Cholesterol 29 L 02/08/20 02/10/20 16:54 05:00 Troponin I 0.061 NT-Pro-B Natriuret Pep 2220 H 2460 H Impressions: Chest X-Ray 02/08/20 16:41 IMPRESSION: Constellation of findings consistent with CHF exacerbation. Superimposed infectious process is not excluded. Assessment and Plan - Diagnosis (1) Atrial fibrillation with rapid ventricular response Is this a current diagnosis for this admission?: Yes Plan: She is on Eliquis and Coreg. If the Coreg does not control her heart rate then we may have to switch her to Toprol-XL. 02/09/2020-patient is presently on Coreg 25 mg p.o. twice daily heart rate is around 100. To continue Eliquis at this time. Consultation with the cardiology is requested at this time. 02/10/2020-heart rate is around 76. In atrial fibrillation. Plan is to continue Eliquis and Coreg 25 mg p.o. twice daily at this time. 02/11/2020-heart rate today is 72 plan is to continue Eliquis and Coreg at this time. 02/12/2020 Continue on amiodarone and Coreg, rate controlled currently Continued on Eliquis Cardiology evaluated patient (2) Acute congestive heart failure Qualifiers: Heart failure type: combined systolic and diastolic Qualified Code(s): I50.41 - Acute combined systolic (congestive) and diastolic (congestive) heart failure Is this a current diagnosis for this admission?: Yes Plan: We do not yet have the recent cath report but will try to obtain it. We will get an echocardiogram because the last one that we have is from over 2 years ago. We will put her on some IV Lasix. She is on Coreg and lisinopril. If her heart rate is not under control we may have to try to switch her Coreg over to Toprol-XL. Cardiology was called when she was in the ER and they are going to see her in consultation. 02/09/2020-patient admitted with shortness of breath and bilateral pedal edema. Echocardiogram was requested. Plan is to continue Coreg, lisinopril, IV Lasix at this time. BNP at the time of admission is 2220. Chest x-ray indicated above CHF exacerbation. Found to have a small bilateral pleural effusions and cardiomegaly with central vascular congestion. Probably patient has acute systolic heart failure. 02/10/[id number]old female admitted with A. fib with RVR and lower extremity edema. Echocardiogram is pending. Presently on Coreg, Lasix receiving IV Lasix on as needed basis. BNP is 2400 this morning. Chest x-ray suggestive of CHF exacerbation. Receiving Coreg 25 mg p.o. twice daily heart rate is 74 this morning rate controlled atrial fibrillation. 02/11/2020-patient is on Lasix 20 mg IV every 8 hours euvolemic at the time of my examination. Patient is also on lisinopril 40 mg p.o. daily and Coreg 25 mg p.o. twice daily. Blood pressure is 120/60. Plan is to continue the present management and to change Lasix to p.o. from today. 02/12/2020 Continue oral Lasix 40 mg daily Continue rate control cardiac medications and Eliquis Cardiology following (3) CAD (coronary artery disease) Qualifiers: Coronary Disease-Associated Artery/Lesion type: unspecified vessel or lesion type [place] vs. transplanted heart: [place] heart Associated angina: without angina Qualified Code(s): I25.10 - Atherosclerotic heart disease of [place] coronary artery without angina pectoris Is this a current diagnosis for this admission?: Yes Plan: Status post coronary artery stenting at [facility] (4) CKD (chronic kidney disease) Qualifiers: Chronic kidney disease stage: unspecified stage Qualified Code(s): N18.9 - Chronic kidney disease, unspecified Is this a current diagnosis for this admission?: Yes Plan: 02/12/2020 -now with mild MOON, likely due to overdiuresis rising creatinine Hold lisinopril, cut Lasix dose in half (5) Diabetic neuropathy Qualifiers: Diabetes mellitus type: type 2 Is this a current diagnosis for this admission?: Yes Plan: 02/10/2020-patient has history of chronic diabetic peripheral neuropathy taking Lyrica 75 mg p.o. every 8 hours at home. Patient is complaining of excruciating pain in both lower extremities plan is to continue Lyrica and started on IV morphine 1 mg every 4 hours as needed for pain. 02/13/2020 Increased dose of Lyrica to 100 mg 3 times daily and changed that from PRN to scheduled as she takes it at home 3 times daily Minimize use of morphine as this may simply be covering up the problem without treating it and she certainly cannot take IV narcotics at home, favor using oral medications instead (6) Diabetes mellitus type 2 in obese Is this a current diagnosis for this admission?: No Plan: 02/09/2020-patient has history of type 2 diabetes mellitus on Lantus 25 units at night and metformin thousand milligrams p.o. twice daily. Plan is to hold metformin and to place her on insulin sliding scale before meals and at bedtime to continue Lantus 22 units at bedtime. 02/10/2020-sugars this morning is 146. Patient is on insulin sliding scale before meals and at bedtime receiving Lantus 22 units at bedtime. Hemoglobin A1c 6.4. 02/13/2020 Lantus continue Correctional sliding scale insulin changed to lispro from regular insulin, Accu-Cheks (7) PAD (peripheral artery disease) Is this a current diagnosis for this admission?: Yes Plan: Noted by cardiology and their note Bilateral lower extremity arterial ultrasound May benefit from vascular surgery evaluation (8) MOON (acute kidney injury) Is this a current diagnosis for this admission?: Yes - Time Time Spent with patient: 25-34 minutes Medications reviewed and adjusted accordingly: Yes Anticipated Discharge Disposition: Home with Home Health Anticipated Discharge Timeframe: within 72 hours - Inpatient Certification Based on my medical assessment, after consideration of the patient's comorbidities, presenting symptoms, or acuity I expect that the services needed warrant INPATIENT care.: Yes I certify that my determination is in accordance with my understanding of Medicare's requirements for reasonable and necessary INPATIENT services [42 CFR 412.3e].: Yes Medical Necessity: Significant Comorbidiites Make Outpatient Treatment Too Risky, Need Close Monitoring Due to Risk of Patient Decompensation, Risk of Complication if Not Cared For in Hospital, Risk of Diagnosis Which Will Require Inpatient Eval/Care/Monitoring
[2020-02-13] MEDS: ISOSORBIDE MONONITRATE 30 MG TAB.ER.24H PO SCH (15:30)
[2020-02-13] MEDS: LISINOPRIL 10 MG TABLET PO SCH (15:31)
[2020-02-13] MEDS: PREGABALIN 100 MG CAPSULE PO SCH ×2 (15:35→18:40)
--- NOTE | 2020-02-13 16:37 | RADIOLOGY REPORT (SQ) ---
EXAM DESCRIPTION: ARTERIAL LOWER EXTREM BILAT IMAGES COMPLETED DATE/TIME: 02/13/2020 4:15 pm REASON FOR STUDY: claudication, pain, PAD COMPARISON: None. TECHNIQUE: Dynamic and static conteh scale and color images acquired of the lower extremity arteries. Additional selected spectral images recorded. LIMITATIONS: None. FINDINGS: RIGHT LEG: INFLOW ARTERIES: Normal, no obstruction evident. FEMORAL ARTERIES:Multiphasic waveforms. Elevated velocities are seen within the profunda femoral isra ry measuring up to 147 centimeters/seconds. The femoral artery likewise demonstrates focally elevate d velocities measuring up to 225 centimeters/second at the mid segment. POPLITEAL ARTERY:Multiphasic waveforms. Normal, no velocity elevation to suggest focal stenosis. Norm al color Doppler evaluation. No aneurysm. PATENT TIBIOPERONEAL TRUNK AND 3 VESSEL RUNOFF: Diminished flow seen within the posterior tibial isra ry proximally with no flow demonstrated of the mid and distal segments. The peroneal artery demonstr ates normal velocities with multiphasic waveforms. The anterior tibial artery demonstrates normal ve locities and multiphasic waveforms. OTHER: Flow seen within the dorsalis pedis. . LEFT LEG: INFLOW ARTERIES: Normal, no obstruction evident. FEMORAL ARTERIES:Multiphasic waveforms. Elevated velocities are seen within the mid and distal femora l artery measuring up to 303 centimeters/second at the distal segment. POPLITEAL ARTERY:Multiphasic waveforms. Normal, no velocity elevation to suggest focal stenosis. Norm al color Doppler evaluation. No aneurysm. PATENT TIBIOPERONEAL TRUNK AND 3 VESSEL RUNOFF: Diminished flow was seen within the anterior tibial a rtery with no flow seen of the mid and distal segments. Flow is seen within the posterior tibial art elsi. The peroneal artery is not imaged. OTHER: Diminished flow was seen within the dorsalis pedis, which remains patent. IMPRESSION: Flow limiting stenoses are seen of the bilateral femoral arteries with abnormal three-ve ssel runoff as detailed above. TECHNICAL DOCUMENTATION: JOB ID: [id number] 2010 [employer]- All Rights Reserved Reading location - IP/workstation name: [email or web address]
[2020-02-13] MEDS: INSULIN LISPRO 100 UNIT/ML 3 ML VIAL SUBCUT SCH ×2 (18:40→22:35)
[2020-02-13] MEDS ORDERED: ATORVASTATIN CALCIUM 40 MG TABLET PO SCH (22:00)
[2020-02-13] MEDS: ATORVASTATIN CALCIUM 20 MG TABLET PO SCH (22:34)
[2020-02-13] MEDS: INSULIN GLARGINE,HUM.REC.ANLOG 1,000 UNIT/10 ML VIAL SUBCUT SCH (22:35)
--- NOTE | 2020-02-14 00:07 | PDOC PROGRESS REPORT ---
Subjective Progress Note for:: 02/13/20 Subjective:: Patient seen and examined. Patient has known history of coronary artery disease. Patient was admitted with shortness of breath. Patient was noted to be in atrial fibrillation. Patient also noted to be in congestive heart failure. Patient to [facility] had a 2D echocardiogram with shows mildly depressed LVEF along with Grade III diastolic dysfunction. Patient was noted to be resting comfortably in bed. She denies any chest pains or shortness of breath. Patient however complaint of bilateral lower extremity discomfort. 02/12/2020: patient was seen on evening rounds. She remained stable. Telemetry strip shows atrial fibrillation. Review of telemetry strip shows that patient was in sinus rhythm on Tuesday. Sinus rhythm was also noted while patient was having echocardiogram. Subsequently patient reverted back to atrial fibrillation. Patient is still having bilateral lower extremity discomfort possibly neuropathic in nature. Patient does however also have peripheral vascular disease. She is denying any chest pains shortness of breath. 02/13/2020: Patient remains stable without any chest pains shortness of breath. She continues to complain of lower extremity discomfort. Arterial duplex study shows significant PVD. Patient also has history of neuropathic pain. Lyrica has been increased. Watch for any fluid retention. Patient remains in atrial fibrillation however heart rate is well controlled. Reason For Visit: AFIB,CHF Physical Exam Vital Signs: Temp Pulse Resp BP Pulse Ox 98.5 F 79 12 117/54 L 100 02/13/20 11:14 02/13/20 14:00 02/13/20 11:14 02/13/20 11:14 02/13/20 11:14 Intake & Output 02/12/20 02/13/20 02/14/20 06:59 06:59 06:59 Intake Total 720 200 950 Output Total 500 100 400 Balance 220 100 550 Weight 59.1 kg 58.7 kg General appearance: PRESENT: no acute distress, well-developed, well-nourished Head exam: PRESENT: atraumatic, normocephalic Eye exam: PRESENT: conjunctiva pink, EOMI, PERRLA. ABSENT: scleral icterus Ear exam: PRESENT: normal external ear exam Mouth exam: PRESENT: moist, tongue midline Neck exam: ABSENT: carotid bruit, JVD, lymphadenopathy, thyromegaly Respiratory exam: PRESENT: clear to auscultation miguel angel. ABSENT: rales, rhonchi, wheezes Cardiovascular exam: PRESENT: irregular rhythm, +S1, +S2. ABSENT: diastolic murmur, rubs, systolic murmur Pulses: PRESENT: other - Pedal pulses diminished Vascular exam: PRESENT: normal capillary refill GI/Abdominal exam: PRESENT: normal bowel sounds, soft. ABSENT: distended, guarding, mass, organolmegaly, rebound, tenderness Rectal exam: PRESENT: deferred Extremities exam: PRESENT: full ROM. ABSENT: calf tenderness, clubbing, pedal edema Neurological exam: PRESENT: alert, awake, oriented to person, oriented to place, oriented to time, oriented to situation, CN II-XII grossly intact. ABSENT: motor sensory deficit Psychiatric exam: PRESENT: appropriate affect, normal mood. ABSENT: homicidal ideation, suicidal ideation Skin exam: PRESENT: dry, intact, warm. ABSENT: cyanosis, rash Results Laboratory Results: 02/13/20 10:00 02/13/20 10:00 02/13/20 02/13/20 02/13/20 10:00 10:00 10:00 WBC 7.0 RBC 3.73 Hgb 9.2 L Hct 28.5 L MCV 77 L MCH 24.6 L MCHC 32.1 RDW 16.9 H Plt Count 248 Seg Neutrophils % 71.3 Sodium 139.8 Potassium 3.9 Chloride 101 Carbon Dioxide 27 Anion Gap 12 BUN 56 H Creatinine 1.73 H Est GFR ( Amer) 36 L Glucose 177 H Calcium 9.1 Triglycerides 158 H Cholesterol 146.09 LDL Cholesterol Direct 81 VLDL Cholesterol 31.6 H HDL Cholesterol 29 L 02/08/20 02/10/20 16:54 05:00 Troponin I 0.061 NT-Pro-B Natriuret Pep 2220 H 2460 H Impressions: Chest X-Ray 02/08/20 16:41 IMPRESSION: Constellation of findings consistent with CHF exacerbation. Superimposed infectious process is not excluded. Lower Extremity Ultrasound 02/13/20 00:00 IMPRESSION: Flow limiting stenoses are seen of the bilateral femoral arteries with abnormal three-vessel runoff as detailed above. Assessment & Plan - Diagnosis (1) Acute congestive heart failure Qualifiers: Heart failure type: combined systolic and diastolic Qualified Code(s): I50.41 - Acute combined systolic (congestive) and diastolic (congestive) heart failure Is this a current diagnosis for this admission?: Yes (2) Atrial fibrillation with rapid ventricular response Is this a current diagnosis for this admission?: Yes (3) CAD (coronary artery disease) Qualifiers: Coronary Disease-Associated Artery/Lesion type: unspecified vessel or lesion type [place] vs. transplanted heart: [place] heart Associated angina: without angina Qualified Code(s): I25.10 - Atherosclerotic heart disease of [place] coronary artery without angina pectoris Is this a current diagnosis for this admission?: Yes (4) Diabetic neuropathy Qualifiers: Diabetes mellitus type: type 2 Is this a current diagnosis for this admission?: Yes (5) Dyslipidemia Is this a current diagnosis for this admission?: Yes (6) Hypertension Qualifiers: Hypertension type: essential hypertension Qualified Code(s): I10 - Essential (primary) hypertension Is this a current diagnosis for this admission?: Yes (7) CKD (chronic kidney disease) Qualifiers: Chronic kidney disease stage: unspecified stage Qualified Code(s): N18.9 - Chronic kidney disease, unspecified Is this a current diagnosis for this admission?: Yes (8) Sleep apnea syndrome Qualifiers: Sleep apnea type: unspecified type Qualified Code(s): G47.30 - Sleep apnea, unspecified Is this a current diagnosis for this admission?: Yes - Notes Notes: Patient remains stable from cardiac standpoint. She does have atrial fibrillation which is now persistent. Patient is on amiodarone therapy. Offaly she would convert on this. On discharge, recommend reducing amiodarone dose to 200 mg PO bid. If patient remains in atrial fibrillation after one month PO trial, then cardio version may become indicated. Patient has significant other comorbid diagnosis now includes severe PVD. Patient also has worsening renal function. Prognosis was discussed with patients . Patient did bring in her home CPAP therapy which is being restarted. Will continue to follow-up patient. - Time Time with patient: 15-25 minutes
[2020-02-14] MEDS: PANTOPRAZOLE SODIUM 40 MG TABLET.DR PO SCH (05:35)
[2020-02-14] MEDS: PREGABALIN 100 MG CAPSULE PO SCH ×3 (09:33→18:30)
[2020-02-14] MEDS: APIXABAN 2.5 MG TABLET PO SCH ×2 (09:33→18:30)
[2020-02-14] MEDS: ASPIRIN 81 MG TABLET, ENT COATED PO SCH (09:33)
[2020-02-14] MEDS: CARVEDILOL 12.5 MG TABLET PO SCH ×2 (09:34→22:12)
[2020-02-14] MEDS: INSULIN LISPRO 100 UNIT/ML 3 ML VIAL SUBCUT SCH ×4 (09:34→22:12)
[2020-02-14] MEDS: AMIODARONE HCL 200 MG TABLET PO SCH ×3 (09:34→18:31)
[2020-02-14] MEDS: ISOSORBIDE MONONITRATE 30 MG TAB.ER.24H PO SCH (09:37)
--- NOTE | 2020-02-14 09:38 | EKG REPORT ---
SEVERITY:- NORMAL ECG - SINUS RHYTHM : Confirmed by: Anderson Galaviz 14-Feb-2020 09:38:05
[2020-02-14] MEDS ORDERED: FUROSEMIDE 40 MG TABLET PO SCH (10:00)
--- NOTE | 2020-02-14 13:32 | PDOC PROGRESS REPORT ---
Subjective Subjective:: Patient admitted for A. fib with RVR, CHF exacerbation, severe BLE neuropathic pain. Patient follows with Dr. Galaviz outpatient and he has been consulted here and is following the case. Patient appears to be rate controlled currently on amiodarone and beta-roddy. Blood pressure is lower limit normal at times but patient is asymptomatic from this. Patient's primary complaint is severe BLE neuropathic pain which is not relieved by Lyrica which is been strangely prescribed as as needed. She takes this scheduled every 8 hours at home. I have increased the dose of this to 100 mg 3 times daily. Patient was not seen by a provider yesterday from the hospitalist service however I have offered to take over the patient's care today. She denies any other specific complaints besides pain in her feet. Per records, she has history of PAD and I have ordered arterial ultrasound to ensure she does not have progression of her PAD to the point of critical ischemia which could be accounting for her increase in pain lately. She will need to be evaluated by vascular surgeon if this is the case. 02/14/2020 Still having pain in her legs but it is significantly improved per patient. She states she can also ambulate a very short distance now which she was unable to do yesterday. Higher dose of Lyrica seems to be effective. Patient has an MOON likely due to overdiuresis with Lasix and ongoing lisinopril both of which been stopped. Results of her lower extremity arterial ultrasound shows she has severe arterial stenoses in bilateral femoral arteries and also her tibial arteries distally. She absolutely needs follow-up with the vascular surgeon after discharge from this hospitalization. I explained this to the patient in great detail today and encouraged her to look into her options for vascular surgery in [place] or [place]. Other than improved bilateral lower extremity pain along with generalized fatigue and weakness, patient has no new complaints today. Reason For Visit: AFIB,CHF Physical Exam Vital Signs: Temp Pulse Resp BP Pulse Ox 98.3 F 58 L 15 108/48 L 100 02/14/20 12:02 02/14/20 12:02 02/14/20 12:02 02/14/20 12:02 02/14/20 12:02 Intake & Output 02/13/20 02/14/20 02/15/20 06:59 06:59 06:59 Intake Total 200 1150 Output Total 100 500 Balance 100 650 Weight 58.7 kg 56.6 kg General appearance: PRESENT: no acute distress, well-developed, well-nourished Head exam: PRESENT: atraumatic, normocephalic Eye exam: PRESENT: conjunctiva pink Mouth exam: PRESENT: moist Respiratory exam: PRESENT: clear to auscultation miguel angel. ABSENT: rales, rhonchi, wheezes Cardiovascular exam: PRESENT: RRR. ABSENT: diastolic murmur, rubs, systolic murmur Pulses: PRESENT: +1 pedal pulses bilateral GI/Abdominal exam: PRESENT: normal bowel sounds, soft. ABSENT: distended, guarding, mass, organolmegaly, rebound, tenderness Extremities exam: PRESENT: tenderness - Moderate tenderness bilateral lower extremities from knees to feet Neurological exam: PRESENT: alert, awake, oriented to person, oriented to place, oriented to time, oriented to situation Psychiatric exam: PRESENT: appropriate affect, normal mood Skin exam: PRESENT: dry, intact, warm Results Laboratory Results: 02/13/20 10:00 02/13/20 10:00 02/08/20 02/10/20 16:54 05:00 Troponin I 0.061 NT-Pro-B Natriuret Pep 2220 H 2460 H Impressions: Chest X-Ray 02/08/20 16:41 IMPRESSION: Constellation of findings consistent with CHF exacerbation. Superimposed infectious process is not excluded. Lower Extremity Ultrasound 02/13/20 00:00 IMPRESSION: Flow limiting stenoses are seen of the bilateral femoral arteries with abnormal three-vessel runoff as detailed above. Assessment and Plan - Diagnosis (1) Atrial fibrillation with rapid ventricular response Is this a current diagnosis for this admission?: Yes Plan: She is on Eliquis and Coreg. If the Coreg does not control her heart rate then we may have to switch her to Toprol-XL. 02/09/2020-patient is presently on Coreg 25 mg p.o. twice daily heart rate is around 100. To continue Eliquis at this time. Consultation with the cardiology is requested at this time. 02/10/2020-heart rate is around 76. In atrial fibrillation. Plan is to continue Eliquis and Coreg 25 mg p.o. twice daily at this time. 02/11/2020-heart rate today is 72 plan is to continue Eliquis and Coreg at this time. 02/12/2020 Continue on amiodarone and Coreg, rate controlled currently Continued on Eliquis Cardiology evaluated patient 02/14/2020 Cardiac medications continued, rate controlled (2) MOON (acute kidney injury) Is this a current diagnosis for this admission?: Yes Plan: Creatinine rising likely due to overdiuresis with Lasix and continued dosing of lisinopril, both of them stopped Trend BMP (3) Acute congestive heart failure Qualifiers: Heart failure type: combined systolic and diastolic Qualified Code(s): I50.41 - Acute combined systolic (congestive) and diastolic (congestive) heart failure Is this a current diagnosis for this admission?: Yes (4) CAD (coronary artery disease) Qualifiers: Coronary Disease-Associated Artery/Lesion type: unspecified vessel or lesion type [place] vs. transplanted heart: [place] heart Associated angina: without angina Qualified Code(s): I25.10 - Atherosclerotic heart disease of [place] coronary artery without angina pectoris Is this a current diagnosis for this admission?: Yes (5) CKD (chronic kidney disease) Qualifiers: Chronic kidney disease stage: unspecified stage Qualified Code(s): N18.9 - Chronic kidney disease, unspecified Is this a current diagnosis for this admission?: Yes (6) Diabetic neuropathy Qualifiers: Diabetes mellitus type: type 2 Is this a current diagnosis for this admission?: Yes (7) Diabetes mellitus type 2 in obese Is this a current diagnosis for this admission?: No (8) PAD (peripheral artery disease) Is this a current diagnosis for this admission?: Yes Plan: Noted by cardiology and their note Bilateral lower extremity arterial ultrasound May benefit from vascular surgery evaluation 02/14/2020 Reviewed arterial bilateral lower extremity Doppler which showed severe stenoses of bilateral femoral arteries and tibial arteries Needs prompt follow-up with vascular surgery outpatient after discharge Unable to start Pletal due to interactions with her other medications which include aspirin and Eliquis, also absolutely contraindicated in the setting of heart failure - Time Time Spent with patient: 25-34 minutes Medications reviewed and adjusted accordingly: Yes Anticipated Discharge Disposition: Home, Self Care Anticipated Discharge Timeframe: within 72 hours - Inpatient Certification Based on my medical assessment, after consideration of the patient's comorbidities, presenting symptoms, or acuity I expect that the services needed warrant INPATIENT care.: Yes I certify that my determination is in accordance with my understanding of Medicare's requirements for reasonable and necessary INPATIENT services [42 CFR 412.3e].: Yes Medical Necessity: Significant Comorbidiites Make Outpatient Treatment Too Risky, Need Close Monitoring Due to Risk of Patient Decompensation, Risk of Complication if Not Cared For in Hospital, Risk of Diagnosis Which Will Require Inpatient Eval/Care/Monitoring
--- NOTE | 2020-02-14 19:03 | PDOC PROGRESS REPORT ---
Subjective Progress Note for:: 02/14/20 Subjective:: Patient seen and examined. Patient has known history of coronary artery disease. Patient was admitted with shortness of breath. Patient was noted to be in atrial fibrillation. Patient also noted to be in congestive heart failure. Patient to [facility] had a 2D echocardiogram with shows mildly depressed LVEF along with Grade III diastolic dysfunction. Patient was noted to be resting comfortably in bed. She denies any chest pains or shortness of breath. Patient however complaint of bilateral lower extremity discomfort. 02/12/2020: patient was seen on evening rounds. She remained stable. Telemetry strip shows atrial fibrillation. Review of telemetry strip shows that patient was in sinus rhythm on Tuesday. Sinus rhythm was also noted while patient was having echocardiogram. Subsequently patient reverted back to atrial fibrillation. Patient is still having bilateral lower extremity discomfort possibly neuropathic in nature. Patient does however also have peripheral vascular disease. She is denying any chest pains shortness of breath. 02/13/2020: Patient remains stable without any chest pains shortness of breath. She continues to complain of lower extremity discomfort. Arterial duplex study shows significant PVD. Patient also has history of neuropathic pain. Lyrica has been increased. Watch for any fluid retention. Patient remains in atrial fibrillation however heart rate is well controlled. 02/14/2020: converted to NSR on EKG, otherwise remains same with discomfort in the bilateral lower extremity below the knee. Patient claims that she is able to ambulate at home. Renal functions noted to have worsened. Reason For Visit: AFIB,CHF Physical Exam Vital Signs: Temp Pulse Resp BP Pulse Ox 97.5 F 97 15 111/33 L 100 02/14/20 07:57 02/14/20 07:57 02/14/20 07:57 02/14/20 07:57 02/14/20 07:57 Intake & Output 02/13/20 02/14/20 02/15/20 06:59 06:59 06:59 Intake Total 200 1150 Output Total 100 500 Balance 100 650 Weight 58.7 kg 56.6 kg Exam: General appearance: PRESENT: no acute distress, well-developed, well-nourished Head exam: PRESENT: atraumatic, normocephalic Eye exam: PRESENT: conjunctiva pink, EOMI, PERRLA. ABSENT: scleral icterus Ear exam: PRESENT: normal external ear exam Mouth exam: PRESENT: moist, tongue midline Neck exam: ABSENT: carotid bruit, JVD, lymphadenopathy, thyromegaly Respiratory exam: PRESENT: clear to auscultation miguel angel. ABSENT: rales, rhonchi, wheezes Cardiovascular exam: PRESENT: irregular rhythm, +S1, +S2. ABSENT: diastolic murmur, rubs, systolic murmur Pulses: PRESENT: other - Pedal pulses diminished Vascular exam: PRESENT: normal capillary refill GI/Abdominal exam: PRESENT: normal bowel sounds, soft. ABSENT: distended, guarding, mass, organolmegaly, rebound, tenderness Rectal exam: PRESENT: deferred Extremities exam: PRESENT: full ROM. ABSENT: calf tenderness, clubbing, pedal edema Neurological exam: PRESENT: alert, awake, oriented to person, oriented to place, oriented to time, oriented to situation, CN II-XII grossly intact. ABSENT: motor sensory deficit Psychiatric exam: PRESENT: appropriate affect, normal mood. ABSENT: homicidal ideation, suicidal ideation Skin exam: PRESENT: dry, intact, warm. ABSENT: cyanosis, rash Results Laboratory Results: 02/13/20 10:00 02/13/20 10:00 02/13/20 02/13/20 02/13/20 10:00 10:00 10:00 WBC 7.0 RBC 3.73 Hgb 9.2 L Hct 28.5 L MCV 77 L MCH 24.6 L MCHC 32.1 RDW 16.9 H Plt Count 248 Seg Neutrophils % 71.3 Sodium 139.8 Potassium 3.9 Chloride 101 Carbon Dioxide 27 Anion Gap 12 BUN 56 H Creatinine 1.73 H Est GFR ( Amer) 36 L Glucose 177 H Calcium 9.1 Triglycerides 158 H Cholesterol 146.09 LDL Cholesterol Direct 81 VLDL Cholesterol 31.6 H HDL Cholesterol 29 L 02/08/20 02/10/20 16:54 05:00 Troponin I 0.061 NT-Pro-B Natriuret Pep 2220 H 2460 H EKG Comments: Telemetry strips shows patient has converted to sinus rhythm. Currently with frequent atrial ectopics Impressions: Chest X-Ray 02/08/20 16:41 IMPRESSION: Constellation of findings consistent with CHF exacerbation. Superimposed infectious process is not excluded. Lower Extremity Ultrasound 02/13/20 00:00 IMPRESSION: Flow limiting stenoses are seen of the bilateral femoral arteries with abnormal three-vessel runoff as detailed above. Assessment & Plan - Diagnosis (1) Acute congestive heart failure Qualifiers: Heart failure type: combined systolic and diastolic Qualified Code(s): I50.41 - Acute combined systolic (congestive) and diastolic (congestive) heart failure Is this a current diagnosis for this admission?: Yes (2) Atrial fibrillation with rapid ventricular response Is this a current diagnosis for this admission?: Yes (3) CAD (coronary artery disease) Qualifiers: Coronary Disease-Associated Artery/Lesion type: unspecified vessel or lesion type [place] vs. transplanted heart: [place] heart Associated angina: without angina Qualified Code(s): I25.10 - Atherosclerotic heart disease of [place] coronary artery without angina pectoris Is this a current diagnosis for this admission?: Yes (4) Diabetic neuropathy Qualifiers: Diabetes mellitus type: type 2 Is this a current diagnosis for this admission?: Yes (5) Dyslipidemia Is this a current diagnosis for this admission?: Yes (6) Hypertension Qualifiers: Hypertension type: essential hypertension Qualified Code(s): I10 - Essential (primary) hypertension Is this a current diagnosis for this admission?: Yes (7) CKD (chronic kidney disease) Qualifiers: Chronic kidney disease stage: unspecified stage Qualified Code(s): N18.9 - Chronic kidney disease, unspecified Is this a current diagnosis for this admission?: Yes (8) Sleep apnea syndrome Qualifiers: Sleep apnea type: unspecified type Qualified Code(s): G47.30 - Sleep apnea, unspecified Is this a current diagnosis for this admission?: Yes - Notes Notes: Patient has converted to sinus rhythm. Heart rate is well controlled. Continue chronic anticoagulation. Due to patient's small size, will recommend reducing dose of amiodarone to 200 mg p.o. twice daily now and 100 mg p.o. daily on discharge. Agree with hospitalist decision about vascular surgery consultation. Patient currently seems to be on adequate regimen for CAD. Patient would benefit from regular walking program for PVD. Peripheral intervention can be considered as an outpatient. Patient advised to continue with CPAP therapy. Patient can follow-up with me as an outpatient. Antilipid therapy was optimized. I believe LDL goal should be less than 50 in this patient. We will sign off. Please reconsult if needed - Time Time with patient: Greater than 35 minutes Medications reviewed and adjusted accordingly: Yes
[2020-02-14] MEDS ORDERED: INSULIN GLARGINE,HUM.REC.ANLOG 1,000 UNIT/10 ML VIAL (PYX) SUBCUT ONE (22:00)
[2020-02-14] MEDS: ATORVASTATIN CALCIUM 20 MG TABLET PO SCH (22:12)
[2020-02-15 05:43] LABS: HEMATOCRIT 29.1 % (36.0-47.0); HEMOGLOBIN 9.3 g/dL (12.0-15.5); MEAN CORPUSCULAR HEMOGLOBIN 24.2 pg (27.0-33.4); MEAN CORPUSCULAR HGB CONC 31.9 g/dL (32.0-36.0); MEAN CORPUSCULAR VOLUME 76 fl (80-97); PLATELET COUNT 247 10^3/uL (150-450); RED BLOOD COUNT 3.84 10^6/uL (3.72-5.28); RED CELL DISTRIBUTION WIDTH 16.3 % (11.5-14.0); WHITE BLOOD COUNT 6.8 10^3/uL (4.0-10.5)
[2020-02-15] MEDS: PANTOPRAZOLE SODIUM 40 MG TABLET.DR PO SCH (05:58)
[2020-02-15 06:25] LABS: ABSOLUTE LYMPHOCYTES# (MANUAL) 1.7 10^3/uL (0.5-4.7); ABSOLUTE MONOCYTES # (MANUAL) 0.3 10^3/uL (0.1-1.4); BASOPHILS % (MANUAL) 0 % (0-2); EOSINOPHILS % (MANUAL) 18 % (0-6); LYMPHOCYTES % (MANUAL) 25 % (13-45); MONOCYTES % (MANUAL) 4 % (3-13); SEGMENTED NEUTROPHILS % (MAN) 53 % (42-78); TOTAL CELLS COUNTED 100
[2020-02-15 06:26] LABS: ANISOCYTOSIS 1+; HYPOCHROMASIA 1+
[2020-02-15 06:27] LABS: OVALOCYTES 1+; PLATELET COMMENT ADEQUATE
[2020-02-15 09:29] LABS: ANION GAP 12 (5-19); BLOOD UREA NITROGEN 66 mg/dL (7-20); CALCIUM 8.8 mg/dL (8.4-10.2); CARBON DIOXIDE 24 mmol/L (22-30); CHLORIDE 104 mmol/L (98-107); GLUCOSE 140 mg/dL (75-110); POTASSIUM 4.3 mmol/L (3.6-5.0)
[2020-02-15] MEDS: ISOSORBIDE MONONITRATE 30 MG TAB.ER.24H PO SCH (09:37)
[2020-02-15] MEDS: APIXABAN 2.5 MG TABLET PO SCH ×2 (09:37→17:46)
[2020-02-15] MEDS: AMIODARONE HCL 200 MG TABLET PO SCH ×3 (09:37→17:46)
[2020-02-15] MEDS: INSULIN LISPRO 100 UNIT/ML 3 ML VIAL SUBCUT SCH ×4 (09:37→22:08)
[2020-02-15] MEDS: CARVEDILOL 12.5 MG TABLET PO SCH ×2 (09:37→22:08)
[2020-02-15] MEDS: ASPIRIN 81 MG TABLET, ENT COATED PO SCH (09:37)
[2020-02-15] MEDS: PREGABALIN 100 MG CAPSULE PO SCH ×3 (09:39→17:46)
--- NOTE | 2020-02-15 17:49 | PDOC PROGRESS REPORT ---
Subjective Subjective:: Patient admitted for A. fib with RVR, CHF exacerbation, severe BLE neuropathic pain. Patient follows with Dr. Galaviz outpatient and he has been consulted here and is following the case. Patient appears to be rate controlled currently on amiodarone and beta-roddy. Blood pressure is lower limit normal at times but patient is asymptomatic from this. Patient's primary complaint is severe BLE neuropathic pain which is not relieved by Lyrica which is been strangely prescribed as as needed. She takes this scheduled every 8 hours at home. I have increased the dose of this to 100 mg 3 times daily. Patient was not seen by a provider yesterday from the hospitalist service however I have offered to take over the patient's care today. She denies any other specific complaints besides pain in her feet. Per records, she has history of PAD and I have ordered arterial ultrasound to ensure she does not have progression of her PAD to the point of critical ischemia which could be accounting for her increase in pain lately. She will need to be evaluated by vascular surgeon if this is the case. 02/14/2020 Still having pain in her legs but it is significantly improved per patient. She states she can also ambulate a very short distance now which she was unable to do yesterday. Higher dose of Lyrica seems to be effective. Patient has an MOON likely due to overdiuresis with Lasix and ongoing lisinopril both of which been stopped. Results of her lower extremity arterial ultrasound shows she has severe arterial stenoses in bilateral femoral arteries and also her tibial arteries distally. She absolutely needs follow-up with the vascular surgeon after discharge from this hospitalization. I explained this to the patient in great detail today and encouraged her to look into her options for vascular surgery in [place] or [place]. Other than improved bilateral lower extremity pain along with generalized fatigue and weakness, patient has no new complaints today. 02/15/2020 Pain in legs still severe and is causing her a great deal of walking difficulty. We will get physical therapy and Occupational Therapy to see her and evaluate her for rehab needs. I suspect she will at least need some home health at discharge. I discussed with her again that she needs to see a vascular surgeon after discharge as she very likely will need bilateral femoral artery bypasses in order to alleviate her severe bilateral lower extremity pain which is likely claudication. Reason For Visit: AFIB,CHF Physical Exam Vital Signs: Temp Pulse Resp BP Pulse Ox 98.4 F 57 L 16 123/42 L 99 02/15/20 16:02 02/15/20 16:02 02/15/20 16:02 02/15/20 16:02 02/15/20 16:02 Intake & Output 02/14/20 02/15/20 02/16/20 06:59 06:59 06:59 Intake Total 1150 554 240 Output Total 500 0 Balance 650 554 240 Weight 56.6 kg 56.7 kg General appearance: PRESENT: no acute distress, well-developed, well-nourished Head exam: PRESENT: atraumatic, normocephalic Eye exam: PRESENT: conjunctiva pink Mouth exam: PRESENT: moist Respiratory exam: PRESENT: clear to auscultation miguel angel. ABSENT: rales, rhonchi, wheezes Cardiovascular exam: PRESENT: RRR. ABSENT: diastolic murmur, rubs, systolic murmur GI/Abdominal exam: PRESENT: normal bowel sounds, soft. ABSENT: distended, guarding, mass, organolmegaly, rebound, tenderness Extremities exam: PRESENT: tenderness - Moderate to severe bilateral lower extremity tenderness seems a bit improved Neurological exam: PRESENT: alert, awake, oriented to person, oriented to place, oriented to time, oriented to situation Skin exam: PRESENT: dry, intact, warm Results Laboratory Results: 02/15/20 05:30 02/15/20 05:30 02/15/20 02/15/20 05:30 05:30 WBC 6.8 RBC 3.84 Hgb 9.3 L Hct 29.1 L MCV 76 L MCH 24.2 L MCHC 31.9 L RDW 16.3 H Plt Count 247 Seg Neutrophils % Not Reportable Sodium 139.8 Potassium 4.3 Chloride 104 Carbon Dioxide 24 Anion Gap 12 BUN 66 H Creatinine 1.39 H Est GFR ( Amer) 46 L Glucose 140 H Calcium 8.8 02/08/20 02/10/20 16:54 05:00 Troponin I 0.061 NT-Pro-B Natriuret Pep 2220 H 2460 H Impressions: Chest X-Ray 02/08/20 16:41 IMPRESSION: Constellation of findings consistent with CHF exacerbation. Superimposed infectious process is not excluded. Lower Extremity Ultrasound 02/13/20 00:00 IMPRESSION: Flow limiting stenoses are seen of the bilateral femoral arteries with abnormal three-vessel runoff as detailed above. Assessment and Plan - Diagnosis (1) MOON (acute kidney injury) Is this a current diagnosis for this admission?: Yes Plan: Creatinine rising likely due to overdiuresis with Lasix and continued dosing of lisinopril, both of them stopped Trend BMP 02/15/2020 Creatinine now going down, continue holding Lasix and lisinopril Continue trending BMP (2) Atrial fibrillation with rapid ventricular response Is this a current diagnosis for this admission?: Yes (3) Acute congestive heart failure Qualifiers: Heart failure type: combined systolic and diastolic Qualified Code(s): I50.41 - Acute combined systolic (congestive) and diastolic (congestive) heart failure Is this a current diagnosis for this admission?: Yes (4) CAD (coronary artery disease) Qualifiers: Coronary Disease-Associated Artery/Lesion type: unspecified vessel or lesion type [place] vs. transplanted heart: [place] heart Associated angina: without angina Qualified Code(s): I25.10 - Atherosclerotic heart disease of [place] coronary artery without angina pectoris Is this a current diagnosis for this admission?: Yes (5) CKD (chronic kidney disease) Qualifiers: Chronic kidney disease stage: unspecified stage Qualified Code(s): N18.9 - Chronic kidney disease, unspecified Is this a current diagnosis for this admission?: Yes (6) Diabetic neuropathy Qualifiers: Diabetes mellitus type: type 2 Is this a current diagnosis for this admission?: Yes Plan: 02/10/2020-patient has history of chronic diabetic peripheral neuropathy taking Lyrica 75 mg p.o. every 8 hours at home. Patient is complaining of excruciating pain in both lower extremities plan is to continue Lyrica and started on IV morphine 1 mg every 4 hours as needed for pain. 02/13/2020 Increased dose of Lyrica to 100 mg 3 times daily and changed that from PRN to scheduled as she takes it at home 3 times daily Minimize use of morphine as this may simply be covering up the problem without treating it and she certainly cannot take IV narcotics at home, favor using oral medications instead 02/15/2020 Bilateral lower extremity pain combination severe PAD and diabetic neuropathy Seems to be much improved on the higher dose/frequency of Lyrica (7) Diabetes mellitus type 2 in obese Is this a current diagnosis for this admission?: No (8) PAD (peripheral artery disease) Is this a current diagnosis for this admission?: Yes Plan: Noted by cardiology and their note Bilateral lower extremity arterial ultrasound May benefit from vascular surgery evaluation 02/14/2020 Reviewed arterial bilateral lower extremity Doppler which showed severe stenoses of bilateral femoral arteries and tibial arteries Needs prompt follow-up with vascular surgery outpatient after discharge Unable to start Pletal due to interactions with her other medications which include aspirin and Eliquis, also absolutely contraindicated in the setting of heart failure 02/15/2020 Discussed the need for vascular surgery follow-up again with the patient who states she will arrange follow-up likely in [place] - Time Time Spent with patient: 25-34 minutes Medications reviewed and adjusted accordingly: Yes Anticipated Discharge Disposition: Home, Self Care Anticipated Discharge Timeframe: within 48 hours - Inpatient Certification Based on my medical assessment, after consideration of the patient's comorbidities, presenting symptoms, or acuity I expect that the services needed warrant INPATIENT care.: Yes I certify that my determination is in accordance with my understanding of Medicare's requirements for reasonable and necessary INPATIENT services [42 CFR 412.3e].: Yes Medical Necessity: Significant Comorbidiites Make Outpatient Treatment Too Risky, Need Close Monitoring Due to Risk of Patient Decompensation, Need for Pain Control, Risk of Complication if Not Cared For in Hospital, Risk of D iagnosis Which Will Require Inpatient Eval/Care/Monitoring
[2020-02-15] MEDS ORDERED: INSULIN GLARGINE,HUM.REC.ANLOG 1,000 UNIT/10 ML VIAL SUBCUT SCH (22:00)
[2020-02-15] MEDS: ATORVASTATIN CALCIUM 20 MG TABLET PO SCH (22:08)
[2020-02-16] MEDS: PANTOPRAZOLE SODIUM 40 MG TABLET.DR PO SCH (05:29)
[2020-02-16 07:51] LABS: ANION GAP 10 (5-19); BLOOD UREA NITROGEN 48 mg/dL (7-20); CALCIUM 8.8 mg/dL (8.4-10.2); CARBON DIOXIDE 25 mmol/L (22-30); CHLORIDE 105 mmol/L (98-107); GLUCOSE 131 mg/dL (75-110); POTASSIUM 4.5 mmol/L (3.6-5.0)
[2020-02-16] MEDS ORDERED: RINGERS SOLUTION,LACTATED 1,000 ML IV PRN (07:57)
[2020-02-16] MEDS: INSULIN LISPRO 100 UNIT/ML 3 ML VIAL SUBCUT SCH ×3 (08:00→16:52)
[2020-02-16] MEDS: PREGABALIN 100 MG CAPSULE PO SCH ×2 (10:38→16:52)
[2020-02-16] MEDS: APIXABAN 2.5 MG TABLET PO SCH (10:38)
[2020-02-16] MEDS: ISOSORBIDE MONONITRATE 30 MG TAB.ER.24H PO SCH (10:38)
[2020-02-16] MEDS: AMIODARONE HCL 200 MG TABLET PO SCH ×2 (10:38→16:52)
[2020-02-16] MEDS: CARVEDILOL 12.5 MG TABLET PO SCH (10:39)
[2020-02-16] MEDS: ASPIRIN 81 MG TABLET, ENT COATED PO SCH (10:39)
[2020-02-16 14:30] LABS: ANION GAP 11 (5-19); BLOOD UREA NITROGEN 45 mg/dL (7-20); CALCIUM 8.8 mg/dL (8.4-10.2); CARBON DIOXIDE 22 mmol/L (22-30); CHLORIDE 105 mmol/L (98-107); GLUCOSE 157 mg/dL (75-110)
--- NOTE | 2020-02-16 16:38 | PDOC DISCHARGE SUMMARY ---
Impression - Admit/DC Date/PCP Admission Date/Primary Care Provider: 02/08/20 20:14 GOMEZ LEONG Discharge Date: 02/16/20 - Discharge Diagnosis (1) MOON (acute kidney injury) Is this a current diagnosis for this admission?: Yes (2) Atrial fibrillation with rapid ventricular response Is this a current diagnosis for this admission?: Yes (3) Acute congestive heart failure Is this a current diagnosis for this admission?: Yes (4) CAD (coronary artery disease) Is this a current diagnosis for this admission?: Yes (5) CKD (chronic kidney disease) Is this a current diagnosis for this admission?: Yes (6) Diabetic neuropathy Is this a current diagnosis for this admission?: Yes (7) Diabetes mellitus type 2 in obese Is this a current diagnosis for this admission?: Yes (8) PAD (peripheral artery disease) Is this a current diagnosis for this admission?: Yes - Additional Information Discharge Diet: Cardiac, Diabetic Discharge Activity: Activity As Tolerated, Balance Activity w/Rest, Weigh Daily Referrals: ARIANE CUNNINGHAM FNP-C [Primary Care Provider] - 02/21/20 9:00 am Prescriptions: Amiodarone HCl [Cordarone 200 mg Tablet] 200 mg PO TID #90 tablet Isosorbide Mononitrate [Imdur 30 mg Tablet.er] 30 mg PO DAILY #30 tab.er.24h Pregabalin [Lyrica 100 mg Capsule] 100 mg PO TID #90 capsule Pantoprazole Sodium [Protonix [address] Tablet] 40 mg PO Q6AM #30 tablet.dr Home Medications: Carvedilol 25 mg PO BID 01/15/20 Insulin Glargine,Hum.rec.anlog [Rebeccaagldali [place] U-100] 22 unit SQ QHS 01/15/20 Pravastatin Sodium 40 mg PO DAILY 01/15/20 Amlodipine Besylate [Norvasc 5 mg Tablet] 5 mg PO DAILY 02/09/20 Aspirin [Aspir-Low] 81 mg PO DAILY 02/09/20 Amiodarone HCl [Cordarone 200 mg Tablet] 200 mg PO TID #90 tablet 02/16/20 Apixaban [Eliquis 5 mg Tablet] 2.5 mg PO Q12 #60 tablet 02/16/20 Isosorbide Mononitrate [Imdur 30 mg Tablet.er] 30 mg PO DAILY #30 tab.er.24h 02/16/20 Metformin HCl [Glucophage] 500 mg PO BID #0 02/16/20 Pantoprazole Sodium [Protonix [address] Tablet] 40 mg PO Q6AM #30 tablet.dr 02/16/20 Pregabalin [Lyrica 100 mg Capsule] 100 mg PO TID #90 capsule 02/16/20 History of Present Illiness History of Present Illness: Per Admitting Physician: "NANI OBRIEN is a 69 year old female with a history of atrial fibrillation who was sent for a heart cath at [facility] a few weeks ago and she does not recall any of the findings of the procedure but she does not think that they put any more stents in her. She said she got home from work this morning and she ate some food and then she started feeling short of breath. She says that since she left [place] for the heart cath she has had a little bit of swelling in her legs and feet. She has been able to perform all of her usual activities however. She said she felt like her heart was beating really fast. She came to the ER and was found to have a fast heart rate and was given some Cardizem and her heart rate is slowed down. Chest x-ray showed a little bit of bilateral pulmonary edema. She is not been having any fevers or cough." Hospital Course Hospital Course: Patient admitted for A. fib with RVR, CHF exacerbation, severe BLE neuropathic pain. Patient follows with Dr. Galaviz outpatient and he has been consulted here and is following the case. Patient appears to be rate controlled currently on amiodarone and beta-roddy. Blood pressure is lower limit normal at times but patient is asymptomatic from this. Patient's primary complaint is severe BLE neuropathic pain which is not relieved by Lyrica which is been strangely prescribed as as needed. She takes this scheduled every 8 hours at home. I have increased the dose of this to 100 mg 3 times daily. Patient was not seen by a provider yesterday from the hospitalist service however I have offered to take over the patient's care today. She denies any other specific complaints besides pain in her feet. Per records, she has history of PAD and I have ordered arterial ultrasound to ensure she does not have progression of her PAD to the point of critical ischemia which could be accounting for her increase in pain lately. She will need to be evaluated by vascular surgeon if this is the case. 02/14/2020 Still having pain in her legs but it is significantly improved per patient. She states she can also ambulate a very short distance now which she was unable to do yesterday. Higher dose of Lyrica seems to be effective. Patient has an MOON likely due to overdiuresis with Lasix and ongoing lisinopril both of which been stopped. Results of her lower extremity arterial ultrasound shows she has severe arterial stenoses in bilateral femoral arteries and also her tibial arteries distally. She absolutely needs follow-up with the vascular surgeon after discharge from this hospitalization. I explained this to the patient in great detail today and encouraged her to look into her options for vascular surgery in [place] or [place]. Other than improved bilateral lower extremity pain along with generalized fatigue and weakness, patient has no new complaints today. 02/15/2020 Pain in legs still severe and is causing her a great deal of walking difficulty. We will get physical therapy and Occupational Therapy to see her and evaluate her for rehab needs. I suspect she will at least need some home health at discharge. I discussed with her again that she needs to see a vascular surgeon after discharge as she very likely will need bilateral femoral artery bypasses in order to alleviate her severe bilateral lower extremity pain which is likely claudication. Renal function notably improved with some very gentle hydration. On day of discharge patient's creatinine is approximately her baseline. I have reduced the dose of her metformin and I am holding her lisinopril and Lasix until her follow-up appointment with her PCP in 1 week. I believe it would be beneficial if she saw a hatchery helper outpatient as well. I have prescribed her an increased dose of her Lyrica which seem to be helping quite a bit here, however I did explain to the patient that she very likely also has claudication pain in addition to her diabetic neuropathy and this will not improve without vascular surgery evaluating her and potentially surgically treating her blocked arteries in her legs. Patient agreed to the plan and is very eager to go home today. (1) MOON (acute kidney injury) resolved with gentle hydration Is this a current diagnosis for this admission?: Yes Plan: Creatinine rising likely due to overdiuresis with Lasix and continued dosing of lisinopril, both of them stopped Trend BMP 02/15/2020 Creatinine now going down, continue holding Lasix and lisinopril Continue trending BMP (2) Atrial fibrillation with rapid ventricular response resolved Is this a current diagnosis for this admission?: Yes (3) Acute congestive heart failure resolved Qualifiers: Heart failure type: combined systolic and diastolic Qualified Code(s): I50.41 - Acute combined systolic (congestive) and diastolic (congestive) heart failure Is this a current diagnosis for this admission?: Yes (4) CAD (coronary artery disease) Qualifiers: Coronary Disease-Associated Artery/Lesion type: unspecified vessel or lesion type [place] vs. transplanted heart: [place] heart Associated angina: without angina Qualified Code(s): I25.10 - Atherosclerotic heart disease of [place] coronary artery without angina pectoris Is this a current diagnosis for this admission?: Yes (5) CKD (chronic kidney disease) Qualifiers: Chronic kidney disease stage: unspecified stage Qualified Code(s): N18.9 - Chronic kidney disease, unspecified Is this a current diagnosis for this admission?: Yes (6) Diabetic neuropathy improved Qualifiers: Diabetes mellitus type: type 2 Is this a current diagnosis for this admission?: Yes Plan: 02/10/2020-patient has history of chronic diabetic peripheral neuropathy taking Lyrica 75 mg p.o. every 8 hours at home. Patient is complaining of excruciating pain in both lower extremities plan is to continue Lyrica and started on IV morphine 1 mg every 4 hours as needed for pain. 02/13/2020 Increased dose of Lyrica to 100 mg 3 times daily and changed that from PRN to scheduled as she takes it at home 3 times daily Minimize use of morphine as this may simply be covering up the problem without treating it and she certainly cannot take IV narcotics at home, favor using oral medications instead 02/15/2020 Bilateral lower extremity pain combination severe PAD and diabetic neuropathy Seems to be much improved on the higher dose/frequency of Lyrica (7) Diabetes mellitus type 2 in obese Is this a current diagnosis for this admission?: No (8) PAD (peripheral artery disease) Is this a current diagnosis for this admission?: Yes Plan: Noted by cardiology and their note Bilateral lower extremity arterial ultrasound May benefit from vascular surgery evaluation 02/14/2020 Reviewed arterial bilateral lower extremity Doppler which showed severe stenoses of bilateral femoral arteries and tibial arteries Needs prompt follow-up with vascular surgery outpatient after discharge Unable to start Pletal due to interactions with her other medications which include aspirin and Eliquis, also absolutely contraindicated in the setting of heart failure 02/15/2020 Discussed the need for vascular surgery follow-up again with the patient who states she will arrange follow-up likely in [place] Physical Exam Vital Signs: Temp Pulse Resp BP Pulse Ox 98.3 F 56 L 18 137/48 H 99 02/16/20 11:41 02/16/20 11:41 02/16/20 11:41 02/16/20 11:41 02/16/20 11:41 Intake & Output 02/15/20 02/16/20 02/17/20 06:59 06:59 06:59 Intake Total 554 440 Output Total 0 Balance 554 440 Weight 56.7 kg 58.2 kg General appearance: PRESENT: no acute distress, well-developed, well-nourished Head exam: PRESENT: atraumatic, normocephalic Eye exam: PRESENT: conjunctiva pink Mouth exam: PRESENT: moist Respiratory exam: PRESENT: clear to auscultation miguel angel. ABSENT: rales, rhonchi, wheezes Cardiovascular exam: PRESENT: RRR. ABSENT: diastolic murmur, rubs, systolic murmur GI/Abdominal exam: PRESENT: normal bowel sounds, soft. ABSENT: distended, guarding, mass, organolmegaly, rebound, tenderness Neurological exam: PRESENT: alert, awake, oriented to person, oriented to place, oriented to time, oriented to situation Psychiatric exam: PRESENT: appropriate affect, normal mood Skin exam: PRESENT: dry, intact, warm Results Laboratory Results: WBC 6.8 10^3/uL (4.0-10.5) 02/15/20 05:30 RBC 3.84 10^6/uL (3.72-5.28) 02/15/20 05:30 Hgb 9.3 g/dL (12.0-15.5) L 02/15/20 05:30 Hct 29.1 % (36.0-47.0) L 02/15/20 05:30 MCV 76 fl (80-97) L 02/15/20 05:30 MCH 24.2 pg (27.0-33.4) L 02/15/20 05:30 MCHC 31.9 g/dL (32.0-36.0) L 02/15/20 05:30 RDW 16.3 % (11.5-14.0) H 02/15/20 05:30 Plt Count 247 10^3/uL (150-450) 02/15/20 05:30 Lymph % (Auto) Not Reportable 02/15/20 05:30 [place] % (Auto) Not Reportable 02/15/20 05:30 Eos % (Auto) Not Reportable 02/15/20 05:30 Baso % (Auto) Not Reportable 02/15/20 05:30 Absolute Neuts (auto) Not Reportable 02/15/20 05:30 Absolute Lymphs (auto) Not Reportable 02/15/20 05:30 Absolute Monos (auto) Not Reportable 02/15/20 05:30 Absolute Eos (auto) Not Reportable 02/15/20 05:30 Absolute Basos (auto) Not Reportable 02/15/20 05:30 Total Counted 100 02/15/20 05:30 Seg Neutrophils % Not Reportable 02/15/20 05:30 Seg Neuts % (Manual) 53 % (42-78) 02/15/20 05:30 Lymphocytes % (Manual) 25 % (13-45) 02/15/20 05:30 Monocytes % (Manual) 4 % (3-13) 02/15/20 05:30 Eosinophils % (Manual) 18 % (0-6) H 02/15/20 05:30 Basophils % (Manual) 0 % (0-2) 02/15/20 05:30 Abs Neuts (Manual) 3.6 10^3/uL (1.7-8.2) 02/15/20 05:30 Abs Lymphs (Manual) 1.7 10^3/uL (0.5-4.7) 02/15/20 05:30 Abs Monocytes (Manual) 0.3 10^3/uL (0.1-1.4) 02/15/20 05:30 Absolute Eos (Manual) 1.2 10^3/uL (0.0-0.6) H 02/15/20 05:30 Abs Basophils (Manual) 0.0 10^3/uL (0.0-0.2) 02/15/20 05:30 Platelet Comment ADEQUATE 02/15/20 05:30 Polychromasia SLIGHT 02/08/20 16:54 Hypochromasia 1+ 02/15/20 05:30 Anisocytosis 1+ 02/15/20 05:30 Microcytosis 1+ 02/15/20 05:30 Target Cells SLIGHT 02/08/20 16:54 Ovalocytes 1+ 02/15/20 05:30 [place] Cells SLIGHT 02/08/20 16:54 Schistocytes SLIGHT 02/08/20 16:54 Sodium 137.7 mmol/L (137-145) 02/16/20 13:49 Potassium 5.0 mmol/L (3.6-5.0) 02/16/20 13:49 Chloride 105 mmol/L (98-107) 02/16/20 13:49 Carbon Dioxide 22 mmol/L (22-30) 02/16/20 13:49 Anion Gap 11 (5-19) 02/16/20 13:49 BUN 45 mg/dL (7-20) H 02/16/20 13:49 Creatinine 1.15 mg/dL (0.52-1.25) 02/16/20 13:49 Est GFR ( Amer) 57 (>60) L 02/16/20 13:49 Est GFR (MDRD) Non-Af 47 (>60) L 02/16/20 13:49 Glucose 157 mg/dL (75-110) H 02/16/20 13:49 POC Glucose 161 mg/dL (70-110) H 02/16/20 11:42 Hemoglobin A1c % 6.4 % (4.7-6.0) H 02/09/20 06:41 Calcium 8.8 mg/dL (8.4-10.2) 02/16/20 13:49 Magnesium 2.0 mg/dL (1.6-2.3) 02/11/20 04:42 Total Bilirubin 0.4 mg/dL (0.2-1.3) 02/08/20 16:54 Direct Bilirubin 0.0 mg/dL (0.0-0.4) 02/08/20 16:54 Neonat Total Bilirubin Not Reportable 02/08/20 16:54 Neonat Direct Bilirubin Not Reportable 02/08/20 16:54 Neonat Indirect Bili Not Reportable 02/08/20 16:54 AST 21 U/L (14-36) 02/08/20 16:54 ALT 23 U/L (<35) 02/08/20 16:54 Alkaline Phosphatase 62 U/L (38-126) 02/08/20 16:54 Troponin I 0.061 ng/mL 02/08/20 16:54 NT-Pro-B Natriuret Pep 2460 pg/mL (<125) H 02/10/20 05:00 Total Protein 7.6 g/dL (6.3-8.2) 02/08/20 16:54 Albumin 4.3 g/dL (3.5-5.0) 02/08/20 16:54 Triglycerides 158 mg/dL (<150) H 02/13/20 10:00 Cholesterol 146.09 mg/dL (0-200) 02/13/20 10:00 LDL Cholesterol Direct 81 mg/dL (<100) 02/13/20 10:00 VLDL Cholesterol 31.6 mg/dL (10-31) H 02/13/20 10:00 HDL Cholesterol 29 mg/dL (>40) L 02/13/20 10:00 TSH 4.84 uIU/mL (0.47-4.68) H 02/10/20 05:00 Urine Color COLORLESS 02/08/20 16:54 Urine Appearance CLEAR 02/08/20 16:54 Urine pH 6.0 (5.0-9.0) 02/08/20 16:54 Ur Specific [place] 1.004 02/08/20 16:54 Urine Protein NEGATIVE mg/dL (NEGATIVE) 02/08/20 16:54 Urine Glucose (UA) NEGATIVE mg/dL (NEGATIVE) 02/08/20 16:54 Urine Ketones NEGATIVE mg/dL (NEGATIVE) 02/08/20 16:54 Urine Blood NEGATIVE (NEGATIVE) 02/08/20 16:54 Urine Nitrite NEGATIVE (NEGATIVE) 02/08/20 16:54 Urine Bilirubin NEGATIVE (NEGATIVE) 02/08/20 16:54 Urine Urobilinogen NEGATIVE mg/dL (<2.0) 02/08/20 16:54 Ur Leukocyte Esterase NEGATIVE (NEGATIVE) 02/08/20 16:54 Urine WBC (Auto) 0 /HPF 02/08/20 16:54 Urine RBC (Auto) 0 /HPF 02/08/20 16:54 Squamous Epi Cells Auto <1 /HPF 02/08/20 16:54 Urine Mucus (Auto) RARE /LPF 02/08/20 16:54 Urine Ascorbic Acid NEGATIVE (NEGATIVE) 02/08/20 16:54 02/08/20 02/10/20 16:54 05:00 Troponin I 0.061 NT-Pro-B Natriuret Pep 2220 H 2460 H Impressions: Chest X-Ray 02/08/20 16:41 IMPRESSION: Constellation of findings consistent with CHF exacerbation. Superimposed infectious process is not excluded. Lower Extremity Ultrasound 02/13/20 00:00 IMPRESSION: Flow limiting stenoses are seen of the bilateral femoral arteries with abnormal three-vessel runoff as detailed above. Plan Plan of Treatment: Follow-up with PCP Follow-up with hatchery helper Follow-up with vascular surgery Hold Lasix and lisinopril due to recent MOON until recheck BMP in 1 week at PCP office. Patient instructed that if she develops shortness of breath or other signs of volume overload that she must call her geothermal system installer as she will likely need to restart her Lasix. Time Spent: Greater than 30 Minutes Stroke Is this a Stroke Patient?: No Acute Heart Failure - Is this a Heart Failure Patient?: Yes Documentation of LVEF assessment?: Yes LVEF: LVEF Greater Than 40% Anticoagulant Therapy: Yes Follow-up Appointment scheduled within 7 days?: Yes
[2020-02-16 17:21] VITALS: BP 122/52
== END 2020-02-16 18:22 | disposition home or self-care (01) | DRG 291 ==
LOC: ER 16:40 → EH 20:14 → 3W 23:32
PROVIDERS: ADMIT Family Medicine; ATTEND Internal Medicine
PROC: B24BZZZ Ultrasonography of Heart with Aorta (ICD-10-PCS; principal; 2020-02-11)
DX: I13.0 Hypertensive heart and chronic kidney disease with heart failure and stage 1 through stage 4 chronic kidney disease, or unspecified chronic kidney disease (principal); I50.43 Acute on chronic combined systolic (congestive) and diastolic (congestive) heart failure; N17.9 Acute kidney failure, unspecified; I48.0 Paroxysmal atrial fibrillation; I25.10 Atherosclerotic heart disease of native coronary artery without angina pectoris; E78.5 Hyperlipidemia, unspecified; E11.42 Type 2 diabetes mellitus with diabetic polyneuropathy; E11.51 Type 2 diabetes mellitus with diabetic peripheral angiopathy without gangrene; G47.30 Sleep apnea, unspecified; I70.203 Unspecified atherosclerosis of native arteries of extremities, bilateral legs; T50.1X5A Adverse effect of loop [high-ceiling] diuretics, initial encounter; T46.4X5A Adverse effect of angiotensin-converting-enzyme inhibitors, initial encounter; Y92.239 Unspecified place in hospital as the place of occurrence of the external cause; Z90.49 Acquired absence of other specified parts of digestive tract; Z95.1 Presence of aortocoronary bypass graft; Z90.710 Acquired absence of both cervix and uterus; Z82.3 Family history of stroke; Z79.4 Long term (current) use of insulin; Z79.899 Other long term (current) drug therapy; Z79.01 Long term (current) use of anticoagulants; Z95.5 Presence of coronary angioplasty implant and graft; Z79.82 Long term (current) use of aspirin
CPT/HCPCS: 36415; 71045; 80048; 80053; 80061; 81001; 82962; 83036; 83735; 83880; 84443; 84484; 85025; 85027; 93005; 93010; 93306; 93925; 96374; 96375; 99285; J1815; J1940; J2270; J3490

== ENCOUNTER → 2020-04-03 | Outpatient (CLI) | payer MEDICARE, BC ==
--- NOTE | 2020-04-03 15:13 | RADIOLOGY REPORT (SQ) ---
EXAM DESCRIPTION: ELBOW RIGHT >2 VIEWS IMAGES COMPLETED DATE/TIME: 04/03/2020 2:10 pm REASON FOR STUDY: RT ELBOW PAIN M25.521 PAIN IN RIGHT ELBOW COMPARISON: None. NUMBER OF VIEWS: Four views. TECHNIQUE: AP, lateral, and both oblique radiographic images acquired of the right elbow. LIMITATIONS: None. FINDINGS: MINERALIZATION: Normal. BONES: There is an olecranon spur. No acute osseous abnormality. JOINT: No effusion. SOFT TISSUES: No soft tissue swelling. No foreign body. OTHER: No other significant finding. IMPRESSION: Olecranon spur. No acute osseous finding. TECHNICAL DOCUMENTATION: JOB ID: [id number] [email or web address]- All Rights Reserved Reading location - IP/workstation name: [email or web address]
== END ==
LOC: OD 13:42
PROVIDERS: ATTEND Nurse Practitioner Family
DX: M77.31 Calcaneal spur, right foot (principal); M25.521 Pain in right elbow